=== PATIENT | male | born 1940 | race Caucasian/White ===

== ENCOUNTER 2017-10-21 08:30 | Day surgery (SDC) | payer MEDICARE, BC ==
[~2017-10-21] VITALS: Ht 172.7 cm; Wt 79.4 kg
--- NOTE | ~2017-10-21 | OP ---
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 PROCEDURE: Lumbar laminectomy, medial facetectomy and foraminotomy with microscopic dissection of synovial cyst, L4-L5 right and epidural mass, L4-L5, right. SURGEON: Palmer Murphy MD DESCRIPTION OF TECHNIQUE: After induction of general endotracheal anesthesia, the patient was rolled prone on a Morteza frame. Lumbar spine was prepped and draped in usual sterile fashion. Fluoroscopic x-ray and spinal needle localized with L4-L5 interspace on the right side. A stab incision was created with a #11 blade and series of dilators were used to advance a METRx retractor at the L4-L5 interspace on the right side. Lab was confirmed with fluoroscopic x-ray. A microscope and Midas Angel drill were used to perform a laminectomy, medial facetectomy and foraminotomy L4-L5 on the right. Hypertrophied ligamentum flavum was removed with Cloward rongeurs. In the process of removing this, there was obvious synovial cyst adherent to the dura. This was dissected with Rhoton microdissectors under microscopic illumination. Following this, the synovial cyst was completely resected and the L5 nerve was decompressed. Meticulous hemostasis was maintained throughout the wound. Wounds were irrigated with copious amounts of Ancef irrigant solution. The retractor was removed and the fascia was closed with 2-0 Vicryl suture, the subdermal layer was closed with 3-0 Vicryl suture. Skin was closed with carisa. A sterile dressing was applied to the wound. The patient was awakened in good condition and taken to recovery. All counts reported as correct. Estimated blood loss was minimal. TRANSINT:[id number] Voice Confirmation ID: [id number] DOCUMENT ID: [id number] PALMER MURPHY MD at 1832 CC: [id number] DICTATION DATE: 11/04/17 1638 CORPORATE DEVELOPMENT ANALYST: 11/04/17 1720 [facility] 10/21/17 [facility] [address] [place] [address]
[~2017-10-21 08:30] MED LIST: ASPIRIN EC325 M1 PO; BETAPACE 80 MG80 MG PO; CINNAMON500 MG PO; COUMADIN5 MG PO; DYAZIDE 37.5/251 CAP PO; FLOMAX0.4 MG PO; GLUCOPHAGE1000 MG PO; LIPITOR80 MG PO
[2017-10-21 09:38] LABS: HEMATOCRIT 35.1 % (42.0-54.0); HEMOGLOBIN 11.3 g/dL (13.5-17.5); MCH 26.8 pg (26.0-34.0); MCHC 32.2 g/dL (31.0-37.0); MCV 83.2 fL (80.0-100.0); MEAN PLATELET VOLUME 9.5 fL (7.4-10.4); RBC 4.22 10x6/uL (4.20-6.10); RDW 15.2 % (11.5-14.5); WBC 8.2 10x3/uL (4.8-10.8)
[2017-10-21 09:46] LABS: CALC OSMOLALITY 279 mosm/kg (275-300); CALCIUM 9.8 mg/dL (8.5-10.1); CARBON DIOXIDE 27.7 mmol/L (21.0-32.0); CHLORIDE - SERUM 102 mmol/L (98-107); GLUCOSE 126 mg/dL (74-106); POTASSIUM - SERUM 3.6 mmol/L (3.5-5.1); SODIUM 138 mmol/L (136-145); UREA NITROGEN 17 mg/dL (7-18); eGFR NON AFRICAN AMERICAN 77 mL/min (90-120)
[2017-10-21 09:56] LABS: APTT 30.4 SECONDS (22.8-39.4); INR 1.28 (0.85-1.17); PROTIME 15.5 SECONDS (11.6-15.0)
[2017-10-21 10:05] VITALS: BP 126/75; Ht 172.7 cm; Wt 79.4 kg
== END 2017-10-21 16:30 | disposition home or self-care (01) ==
LOC: D.OPS 08:30 → D.PAN 10:15 → D.OPS 11:00
PROVIDERS: Anesthesiology
DX: M54.16 Radiculopathy, lumbar region (principal); M71.38 Other bursal cyst, other site; I48.91 Unspecified atrial fibrillation; E11.9 Type 2 diabetes mellitus without complications; Z01.812 Encounter for preprocedural laboratory examination

== ENCOUNTER → 2019-05-20 19:26 | Outpatient (CLI) | payer MEDICARE, BC ==
[2017-10-21 10:05] VITALS: BMI 26.6
== END | disposition home or self-care (01) ==
LOC: D.LABREF 19:26
PROVIDERS: ATTEND Orthopaedic Surgery
DX: M16.11 Unilateral primary osteoarthritis, right hip (principal)

== ENCOUNTER 2019-05-21 12:52 | Inpatient (IN) | payer MEDICARE, BC ==
[~2019-05-21] VITALS: Ht 172.7 cm; Wt 73.9 kg
[2019-06-02 13:32] LABS: APPEARANCE CLEAR (CLEAR); BILIRUBIN NEGATIVE (NEGATIVE); COLOR STRAW (YELLOW); GLUCOSE NEGATIVE (NEGATIVE); KETONE NEGATIVE (NEGATIVE); NITRITE NEGATIVE (NEGATIVE); PROTEIN NEGATIVE (NEGATIVE); SPECIFIC GRAVITY 1.005 (1.005-1.020); UROBILINOGEN NORMAL (NORMAL)
[2019-06-11] VITALS (7 sets, daily range): BP systolic 98–135; BP diastolic 56–80; BMI 24.8
[2019-06-11] MEDS ORDERED: LOVENOX40 MG/0.4 SC (11:28)
[2019-06-11 11:29] LABS: BASOPHILS 0.3 % (0-2); EOSINOPHILS 3.1 % (0-7); HEMATOCRIT 32.3 % (42.0-54.0); HEMOGLOBIN 10.3 g/dL (13.5-17.5); IMMATURE GRANULOCYTES 0.1 % (0-5); LYMPHOCYTES 17.6 % (15-50); MCH 26.2 pg (26.0-34.0); MCHC 31.9 g/dL (31.0-37.0); MCV 82.2 fL (80.0-100.0); MONOCYTES 15.2 % (2-11); NEUTROPHILS 63.7 % (40-80); PLATELET COUNT 309 10x3/uL (130-400); RBC 3.93 10x6/uL (4.20-6.10); WBC 7.3 10x3/uL (4.8-10.8)
[2019-06-11 11:38] LABS: CALC OSMOLALITY 275 mosm/kg (275-300); CALCIUM 9.9 mg/dL (8.5-10.1); CARBON DIOXIDE 27.9 mmol/L (21.0-32.0); CHLORIDE - SERUM 100 mmol/L (98-107); CREATININE - SERUM 0.8 mg/dL (0.6-1.3); GLUCOSE 127 mg/dL (74-106); POTASSIUM - SERUM 3.9 mmol/L (3.5-5.1); SODIUM 136 mmol/L (136-145); UREA NITROGEN 18 mg/dL (7-18); eGFR NON AFRICAN AMERICAN > 90 mL/min (90-120)
[2019-06-11 11:42] LABS: INR 1.07 (0.85-1.17); PROTIME 13.4 SECONDS (11.6-15.0)
[2019-06-11 11:43] LABS: APTT 33.5 SECONDS (22.8-39.4)
--- NOTE | 2019-06-11 18:45 | NUR ---
PATIENT IN BED WITH IV INTACT. NO COMPLAINTS OR SIGNS OF DISTRESS. ELIAN BUCK ON. DRESSING CDI. FAMILY AT BEDSIDE. CALL LIGHT WITHIN REACH.
--- NOTE | 2019-06-11 22:00 | NUR ---
A&O X 4, AT BEDSIDE. PERIPHERAL PULSES PALPABLE. BLOOD PRESSURE HAS BEEN RUNNING LOW. DR. AGUILERA NOTIFIED. MONITORING CLOSELY. CONTINUE PLAN OF CARE.
[2019-06-12] VITALS: BP 104/54
--- NOTE | 2019-06-12 01:59 | NUR ---
I have reviewed this patient and I concur with the Shift Assessment completed by the Licensed Practical Nurse today this shift.
[2019-06-12 04:00] VITALS: BP 96/42
[2019-06-12 06:34] LABS: MCH 26.6 pg (26.0-34.0); MCHC 31.9 g/dL (31.0-37.0); MCV 83.3 fL (80.0-100.0); MEAN PLATELET VOLUME 10.1 fL (7.4-10.4); RDW 16.3 % (11.5-14.5)
[2019-06-12 06:48] LABS: WBC 12.1 10x3/uL (4.8-10.8)
[2019-06-12 06:49] LABS: RBC 2.82 10x6/uL (4.20-6.10)
[2019-06-12 06:50] LABS: HEMATOCRIT 23.5 % (42.0-54.0); HEMOGLOBIN 7.5 g/dL (13.5-17.5)
--- NOTE | 2019-06-12 06:50 | NUR ---
PT RESTING IN BED WITH EYES CLOSED, AT THE BEDSIDE, NO S/S OF DISTRESS NOTED AT THIS TIME. BREATHING EVEN AND NONLABORED. DENIES NEEDS, WILL CONT TO MONITOR.
--- NOTE | 2019-06-12 07:15 | NUR ---
PT RESTING IN BED WITH EYES OPEN. NG TUBE LOCATED TO RIGHT NOSTRIL. IV LOCATED TO RIGHT WRIST RUNNING D5 1/2 @ 75, PROCAL @ 50, AND DILAUDID WOOD PRESERVING PLANT LABORER PRESENT. DENIES NEEDS AT THIS TIME, WILL CONT TO MONITOR.
--- NOTE | 2019-06-12 08:50 | OP ---
PATIENT NAME: PENG STOVALL MEDICAL RECORD: [id number] :40 LOCATION:[id number] ADMISSION DATE:06/11/19 SURGEON: MICH AGUILERA DO DATE OF OPERATION: 06/11/2019 PROCEDURE PERFORMED: Right total hip arthroplasty. PREOPERATIVE DIAGNOSIS: Severe right hip osteoarthritis with leg length discrepancy. POSTOPERATIVE DIAGNOSIS: Severe right hip osteoarthritis with leg length discrepancy. INDICATION: Mr. Stovall is a 78-year-old male who presented to my office after attempting all manner of nonoperative treatment for his hip. He was tired of dealing with the pain and a leg length discrepancy and wanted something done. I informed him of the risks of infection, bleeding, blood clots, damage to nerves and vessels, continued pain, failure of implants, fracture, leg length discrepancies, blood clots, and even . He signed the consent. SURGEON: Mich Aguilera DO DESCRIPTION OF PROCEDURE: The patient was taken to the operative suite, laid in supine position, given a general anesthetic and intubated. He was given a gram of Ancef, 80 mg of gentamicin and a gram of TXA. He was then moved over to the Crocker table and positioned. The right hip was prepped and draped in a sterile fashion, reprepped with a prep stick after the initial prep. Then, the Ioban shower curtain was placed over it. I then marked out the incision. Timeout was performed. Everyone was in agreeance with the correct side, site, and patient, and procedure. Incision then began over the tensor fascia ale muscle. Careful dissection was made down to the muscle and the fascia. The fascia was incised and taken anteriorly and muscle belly posteriorly. The interval between the rectus then opened up and rectus taken medially and the tensor fascia ale laterally. The ascending branch of the lateral femoral circumflex was then encountered, exposed, and tied off and coagulated with Aquamantys. The neck of the femur was then exposed and with Homans' on either side of it and the capsule was opened. There were large osteophytes, bones floating around in the joint. Most of them were removed that were reachable. Once the neck was exposed, the capsule was tagged and Hohmanns were placed around the neck inside the capsule. The neck cut was then made. The head was removed and more loose bodies were removed out of the joint. The labrum was then removed and then reaming began up to a 58. 58 cup was then impacted and fit very well. The shell was put in under fluoroscopy. The femur was then exposed. Broaching began with first of the canal finder and then the cookie cutter and then from a 4-9. It was only a little bit of varus, so we broached up to an 11 lateralizing as we went. The 11 fit well and we sized with a standard first to -3, then a standard decided to go with a +3 neck due to the leg length discrepancy. We knew that it would lengthen him some, but it may not make him equal, but it would make him closer. On the x-ray, it was a good match with his other lesser trochanter. The trial was then removed and the actual implant was put in after irrigation was done and a reduction was made and this was confirmed on x-ray. X-rays were done of the hip and the AP pelvis lengths were good and no fracture is seen in the femur. The wound was then irrigated and then the 10% Providine iodine solution was placed in the wound and irrigated out. I left for 3 minutes and then irrigated out with over a liter of normal saline. The [place] and vancomycin and OPERATIVE REPORT [id number] PENG STOVALL tobramycin powder placed in the wound then and the tensor fascia ale fascia was closed with #1 Vicryl, first in a [id number] and then running locking stitch. The skin was then closed by Houston Alcazar, who was my pathology assistant with 2-0 Vicryl in interrupted fashion, 4-0 Monocryl right on the skin and then Prineo glue placed on the skin. He was then dressed with Telfa and Tegaderm. He was awakened and taken to recovery in stable condition. Blood loss was approximately 200 mL. COMPLICATIONS: None. TRANSINT:[id number] Voice Confirmation ID: [id number] DOCUMENT ID: [id number] MICH AGUILERA DO at 0850 CC: [id number] DICTATION DATE: 06/11/19 1619 PERLITE GRINDER: 06/12/19 0410 [facility] [id number] [place] [address]
[2019-06-12 09:01] VITALS: BP 113/52
--- NOTE | 2019-06-12 09:59 | NUR ---
DISCUSSEDS PTS BLOOD COUNT WITH . APPLIED ICE TO HIP PER DR. PATTERSON.
[2019-06-12 10:11] LABS: INR 1.09 (0.85-1.17); PROTIME 13.6 SECONDS (11.6-15.0)
[2019-06-12 10:23] LABS: ALBUMIN 2.5 g/dL (3.4-5.0); ALKALINE PHOSPHATASE 42 U/L (46-116); ALT (SGPT) 21 U/L (10-68); BILIRUBIN - TOTAL 0.77 mg/dL (0.2-1.3); CALC OSMOLALITY 272 mosm/kg (275-300); CALCIUM 8.2 mg/dL (8.5-10.1); CARBON DIOXIDE 21.1 mmol/L (21.0-32.0); CHLORIDE - SERUM 101 mmol/L (98-107); GLUCOSE 127 mg/dL (74-106); PROTEIN - SERUM 5.5 g/dL (6.4-8.2); SODIUM 134 mmol/L (136-145); UREA NITROGEN 20 mg/dL (7-18); eGFR NON AFRICAN AMERICAN 77 mL/min (90-120)
[2019-06-12 10:24] LABS: POTASSIUM - SERUM 4.5 mmol/L (3.5-5.1)
[2019-06-12 13:02] VITALS: BP 109/64
--- NOTE | 2019-06-12 16:15 | NUR ---
1ST UNIT OF BLOOD STARTED.
[2019-06-12 16:49] VITALS: BP 100/56
--- NOTE | 2019-06-12 19:21 | NUR ---
PATIENT RESTING IN BED WITH NO S/S OF DISTRESS AND GUEST AT BEDSIDE. DRESSING C/D/I. PATIENT DENIES NEEDS AT THIS TIME. BED IN LOWEST POSITION AND CALL LIGHT WITHIN REACH. ENCOURAGED THE PATIENT TO CALL IF HE HAS NEEDS. WILL CONTINUE TO MONITOR.
[2019-06-12 20:00] VITALS: BP 123/58
[2019-06-13] VITALS: BP 106/65
[2019-06-13 04:00] VITALS: BP 108/70
[2019-06-13 06:50] LABS: BASOPHILS 0.1 % (0-2); EOSINOPHILS 0.1 % (0-7); HEMATOCRIT 27.8 % (42.0-54.0); HEMOGLOBIN 9.2 g/dL (13.5-17.5); IMMATURE GRANULOCYTES 0.3 % (0-5); LYMPHOCYTES 8.5 % (15-50); MCH 27.1 pg (26.0-34.0); MCHC 33.1 g/dL (31.0-37.0); MCV 81.8 fL (80.0-100.0); MEAN PLATELET VOLUME 9.4 fL (7.4-10.4); MONOCYTES 23.3 % (2-11); NEUTROPHILS 67.7 % (40-80); PLATELET COUNT 257 10x3/uL (130-400); RDW 15.4 % (11.5-14.5); WBC 15.1 10x3/uL (4.8-10.8)
[2019-06-13 07:15] LABS: ALBUMIN 2.6 g/dL (3.4-5.0); ANION GAP 13.2 mmol/L (8-16); BILIRUBIN - TOTAL 1.1 mg/dL (0.2-1.3); CALCIUM 8.7 mg/dL (8.5-10.1); CREATININE - SERUM 1.1 mg/dL (0.6-1.3); POTASSIUM - SERUM 4.2 mmol/L (3.5-5.1); PROTEIN - SERUM 6.1 g/dL (6.4-8.2)
--- NOTE | 2019-06-13 07:16 | NUR ---
ASSISSTED PATIENT TO THE BEDSIDE COMMODE. AT BEDSIDE. PATIENT IS ALERT AND ORIENTED. IV TO THE LEFT FOREARM WITH 1/2 NS RUNNING AT 50. PT WITH NO COMPAINTS OF PAIN AT THIS TIME. BED IS IN LOW POSITION AND CALL LIGHT IS IN REACH. PT WITH NO ADDITIONAL NEEDS AT THIS TIME
[2019-06-13 07:19] LABS: INR 1.14 (0.85-1.17); PROTIME 14.1 SECONDS (11.6-15.0)
[2019-06-13 08:42] VITALS: BP 105/49
[2019-06-13 10:31] LABS: APPEARANCE CLEAR (CLEAR); BILIRUBIN NEGATIVE (NEGATIVE); COLOR YELLOW (YELLOW); GLUCOSE 50 mg/dL (NEGATIVE); KETONE NEGATIVE (NEGATIVE); NITRITE NEGATIVE (NEGATIVE); PROTEIN TRACE mg/dL (NEGATIVE); UROBILINOGEN NORMAL (NORMAL)
[2019-06-13 10:33] LABS: BACTERIA FEW /hpf (NEGATIVE); EPITHELIAL CELLS 0-5 /hpf (0-5); MUCUS <1+ /lpf (NONE SEEN); RED CELLS - URINE NONE SEEN /hpf (0-5); WHITE CELLS - URINE 0-5 /hpf (NEGATIVE)
[2019-06-13 10:34] LABS: GRANULAR CAST 0-5 /lpf (NONE SEEN); HYALINE CAST 0-5 /lpf (NONE SEEN)
[2019-06-13 13:44] VITALS: BP 132/75
--- NOTE | 2019-06-13 17:37 | NUR ---
ASSISSTED PATIENT TO BATHROOM. LARGE BM NOTED. PATIENT STATES RELIEF IN ABD PAIN
[2019-06-13 17:48] VITALS: BP 115/64
[2019-06-13 19:30] VITALS: BP 127/58
--- NOTE | 2019-06-13 19:40 | NUR ---
LYING IN BED. ALERT AND ORIENTED, CONFUSED AT TIMES. AT BEDSIDE. RESP EVEN AND NONLABORED. DRSG NOTED TO RT HIP IS C/D/I. ELIAN HOSE IN USE BILAT. 1/2 NS @ 30 MLHR INFUSING IN LT FOREARM. RATES PAIN IN HIP 2. DENIES NEED FOR PAIN MED. SR ELEVATED X2. CL IN REACH.
--- NOTE | 2019-06-14 01:31 | NUR ---
LYING IN BED WITH EYES CLOSED. RESP EVEN AND NONLABORED. AT BEDSIDE. NO DISTRESS. SR ELEVATED X2. CL IN REACH.
[2019-06-14 05:01] VITALS: BP 123/60
[2019-06-14 05:30] LABS: BASOPHILS 0 % (0-2); EOSINOPHILS 0.1 % (0-7); HEMATOCRIT 25.4 % (42.0-54.0); HEMOGLOBIN 8.2 g/dL (13.5-17.5); IMMATURE GRANULOCYTES 0.4 % (0-5); LYMPHOCYTES 9.2 % (15-50); MCH 26.5 pg (26.0-34.0); MCHC 32.3 g/dL (31.0-37.0); MCV 81.9 fL (80.0-100.0); MEAN PLATELET VOLUME 9.8 fL (7.4-10.4); MONOCYTES 19.6 % (2-11); NEUTROPHILS 70.7 % (40-80); PLATELET COUNT 292 10x3/uL (130-400); RDW 15.8 % (11.5-14.5); WBC 13.6 10x3/uL (4.8-10.8)
[2019-06-14 06:21] LABS: INR 1.12 (0.85-1.17); PROTIME 13.9 SECONDS (11.6-15.0)
[2019-06-14 06:28] LABS: ALBUMIN 2.2 g/dL (3.4-5.0); ALKALINE PHOSPHATASE 44 U/L (46-116); ALT (SGPT) 17 U/L (10-68); BILIRUBIN - TOTAL 0.77 mg/dL (0.2-1.3); CALC OSMOLALITY 261 mosm/kg (275-300); CALCIUM 8.6 mg/dL (8.5-10.1); CARBON DIOXIDE 22.9 mmol/L (21.0-32.0); CHLORIDE - SERUM 94 mmol/L (98-107); CREATININE - SERUM 0.9 mg/dL (0.6-1.3); GLUCOSE 121 mg/dL (74-106); POTASSIUM - SERUM 3.1 mmol/L (3.5-5.1); PROTEIN - SERUM 5.8 g/dL (6.4-8.2); SODIUM 129 mmol/L (136-145); UREA NITROGEN 17 mg/dL (7-18); eGFR NON AFRICAN AMERICAN 87 mL/min (90-120)
--- NOTE | 2019-06-14 08:02 | NUR ---
PT RESTING IN BED. RESP EVEN AND UNLABORED. PT REPORTS PAIN 2/10 AT THIS TIME. IV TO LEFT FOREARM WITH 1/2 NS @ KVO, INFUSING VIA PUMP. SITE WITHOUT REDNESS OR EDEMA. DRESSING TO RIGHT HIP C/D/I. SPOUSE AT BEDSIDE. PT DENIES FURTHER NEEDS AT THIS TIME. CL WITHIN REACH. ENCOURAGED TO CALL WITH NEEDS. CONTINUE POC
[2019-06-14 08:05] VITALS: BP 110/64
[2019-06-14 12:45] VITALS: BP 104/61
[2019-06-14 13:05] VITALS: Ht 172.7 cm; Wt 73.9 kg
--- NOTE | 2019-06-14 13:25 | MORECARE ---
CASE MANAGEMENT DISCHARGE SUMMARY PATIENT: PENG HYATT N UNIT: [id number] ADM DATE: 06/11/19 AGE: 78 : 40 SEX: M ROOM/BED: D.2210 AUTHOR: MINE SAUER PHYSICIAN: REFERRING PHYSICIAN: PRISCILLA AGUILERA DO DATE OF SERVICE: 06/14/19 Discharge Plan Patient Name: PENG HYATT Facility: [facility]:[place] : 1940 Planned Disposition: Inpatient Rehab Anticipated Discharge Date: Discharge Date: Expected LOS: Initial Reviewer: [email or web address] Initial Review Date: 06/11/2019 Generated: 06/14/19 2:24 pm DCPIA - Discharge Planning Initial Assessment Updated by [email or web address]: Lay Esposito on 06/14/19 1:23 pm * Is the patient Alert and Oriented? Yes * How many steps to enter\exit or inside your home? * PCP VALDEZ * Pharmacy [facility] * Preadmission Environment Home with Family * ADLs Independent * Equipment Bedside Commode Cane Walker * List name and contact numbers for known caregivers / representatives who currently or will assist patient after discharge: KHANH () [phone] * Verbal permission to speak to the caregivers and representatives has been obtained from the patient. N/A * Community resources currently utilized None * Additional services required to return to the preadmission environment? Yes * Can the patient safely return to the preadmission environment? No * Has this patient been hospitalized within the prior 30 days at any hospital? No Coverage Notice Reviewer: [id number] Malina Esposito Notice Issued Date-Time: 06/14/2019 13:00 Notice Type: IM Discharge Notice Notice Delivered To: Patient Relationship to Patient: Consulting Project Director Name: Delivery Method: HAND - Hand Delivered Lindsey Days: Prior Verbal Notification: Recipient Understood Notice: Yes Recipient Signature: Yes Med Rec Note Co-signed by Attending: Coverage Notice Comment: Reviewer: [id number] Malina Esposito Notice Issued Date-Time: 06/14/2019 13:00 Notice Type: Patient Choice Letter Notice Delivered To: Patient Relationship to Patient: Consulting Project Director Name: Delivery Method: HAND - Hand Delivered Lindsey Days: Prior Verbal Notification: Recipient Understood Notice: Yes Recipient Signature: Yes Med Rec Note Co-signed by Attending: Coverage Notice Comment: [facility] Patient Name: PENG HYATT Page [phone] at 1325 All edits/amendments must be made on the electronic document DICTATION DATE: 06/14/19 132 HEEL FINISHER: DYLAN 06/14/19 1324 RPT#: [id number] DC DATE: STATUS: ADM IN [facility] [address] [place] [address] END OF REPORT
--- NOTE | 2019-06-14 13:35 | MORECARE ---
CASE MANAGEMENT DISCHARGE SUMMARY PATIENT: PENG HYATT UNIT: [id number] ADM DATE: 06/11/19 AGE: 78 : 40 SEX: M ROOM/BED: D.2210 AUTHOR: MINE SAUER PHYSICIAN: REFERRING PHYSICIAN: PRISCILLA AGUILERA DO DATE OF SERVICE: 06/14/19 Discharge Plan Patient Name: PENG HYATT Facility: [facility]:[place] : 1940 Planned Disposition: Inpatient Rehab Anticipated Discharge Date: Discharge Date: Expected LOS: Initial Reviewer: [email or web address] Initial Review Date: 06/11/2019 Generated: 06/14/19 2:35 pm Comments DCP- Discharge Planning Updated by [id number]: Lay Esposito on 06/14/19 12:[address] Patient Name: PENG HYATT Admission Status: Elective Accout number: [id number] Admission Date: 06-11-2019 : 1940 Admission Diagnosis: Attending: PRISCILLA AGUILERA Current LOS: 3 Anticipated DC Date: Planned Disposition: Inpatient Rehab Primary Insurance: MEDICARE A & B Discharge Planning Comments: CM met with patient to complete initial dc planning assessment. CM educated patient on the CM role and verbal consent given by patient to complete assessment. Patient lives at home with his spouse where he was independent with his care. At discharge patient would like to go to [facility] and feels this is a safe discharge. I will send the referral to them. CM discussed availability of home health, rehab services, and medical equipment. He has a walker, cane, bsc at home. [facility] served and explained. LORI also signed. Patient denied known discharge needs at this time. CM will continue to follow and will assist as needed with dc plans/needs. Balloon Dipper: Lay Esposito DCPIA - Discharge Planning Initial Assessment Updated by [email or web address]: Lay Esposito on 06/14/19 1:23 pm * Is the patient Alert and Oriented? Yes * How many steps to enter\exit or inside your home? * PCP VALDEZ * Pharm[facility] * Preadmission Environment Home with Family * ADLs Independent * Equipment Bedside Commode Cane Walker * List name and contact numbers for known caregivers / representatives who currently or will assist patient after discharge: KHANH () [phone] * Verbal permission to speak to the caregivers and representatives has been obtained from the patient. N/A * Community resources currently utilized None * Additional services required to return to the preadmission environment? Yes * Can the patient safely return to the preadmission environment? No * Has this patient been hospitalized within the prior 30 days at any hospital? No Coverage Notice Reviewer: [id number] Esposito Notice Issued Date-Time: 06/14/2019 13:00 Notice Type: IM Discharge Notice Notice Delivered To: Patient Relationship to Patient: Order Management Specialist Name: Delivery Method: HAND - Hand Delivered Lindsey Days: Prior Verbal Notification: Recipient Understood Notice: Yes Recipient Signature: Yes Med Rec Note Co-signed by Attending: Coverage Notice Comment: Reviewer: CONNOR Esposito Notice Issued Date-Time: 06/14/2019 13:00 Notice Type: Patient Choice Letter Notice Delivered To: Patient Relationship to Patient: Order Management Specialist Name: Delivery Method: HAND - Hand Delivered Lindsey Days: Prior Verbal Notification: Recipient Understood Notice: Yes Recipient Signature: Yes Med Rec Note Co-signed by Attending: Coverage Notice Comment: [facility] Last DP export: 06/14/19 12:25 Patient Name: PENG HYATT Page [phone] at 1335 All edits/amendments must be made on the electronic document DICTATION DATE: 06/14/19 1335 CERTIFED REFRIGERATION OPERATOR: DYLAN 06/14/19 1335 RPT#: [id number] DC DATE: STATUS: ADM IN [facility] [address] [place] [address] END OF REPORT
--- NOTE | 2019-06-14 13:45 | MORECARE ---
CASE MANAGEMENT DISCHARGE SUMMARY PATIENT: PENG HYATT UNIT: [id number] ADM DATE: 06/11/19 AGE: 78 : 40 SEX: M ROOM/BED: D.2210 AUTHOR: MINE SAUER PHYSICIAN: REFERRING PHYSICIAN: PRISCILLA AGUILERA DO DATE OF SERVICE: 06/14/19 Discharge Plan Patient Name: PENG HYATT Facility: [facility]:[place] : 1940 Planned Disposition: Inpatient Rehab Anticipated Discharge Date: Discharge Date: Expected LOS: Initial Reviewer: [email or web address] Initial Review Date: 06/11/2019 Generated: 06/14/19 2:44 pm Comments DCP- Discharge Planning Updated by [id number]: Lay Esposito on 06/14/19 12:[address] Patient Name: PENG HYATT Admission Status: Elective Accout number: [id number] Admission Date: 06-11-2019 : 1940 Admission Diagnosis: Attending: PRISCILLA AGUILERA Current LOS: 3 Anticipated DC Date: Planned Disposition: Inpatient Rehab Primary Insurance: MEDICARE A & B Discharge Planning Comments: CM met with patient to complete initial dc planning assessment. CM educated patient on the CM role and verbal consent given by patient to complete assessment. Patient lives at home with his spouse where he was independent with his care. At discharge patient would like to go to [facility] and feels this is a safe discharge. I will send the referral to them. CM discussed availability of home health, rehab services, and medical equipment. He has a walker, cane, bsc at home. [facility] served and explained. LORI also signed. Patient denied known discharge needs at this time. CM will continue to follow and will assist as needed with dc plans/needs. Stevedoring Supervisor: Lay Esposito DCPIA - Discharge Planning Initial Assessment Updated by [email or web address]: Lay Esposito on 06/14/19 1:23 pm * Is the patient Alert and Oriented? Yes * How many steps to enter\exit or inside your home? * PCP VALDEZ * Pharm[facility] * Preadmission Environment Home with Family * ADLs Independent * Equipment Bedside Commode Cane Walker * List name and contact numbers for known caregivers / representatives who currently or will assist patient after discharge: KHANH () [phone] * Verbal permission to speak to the caregivers and representatives has been obtained from the patient. N/A * Community resources currently utilized None * Additional services required to return to the preadmission environment? Yes * Can the patient safely return to the preadmission environment? No * Has this patient been hospitalized within the prior 30 days at any hospital? No External Providers External Provider: OTHER-OTHER Next Contact Date: Service Request Date: Service Type: Resolution: Reviewer: Comments: Coverage Notice Reviewer: [id number] Malina Esposito Notice Issued Date-Time: 06/14/2019 13:00 Notice Type: IM Discharge Notice Notice Delivered To: Patient Relationship to Patient: Server Assistant Name: Delivery Method: HAND - Hand Delivered Lindsey Days: Prior Verbal Notification: Recipient Understood Notice: Yes Recipient Signature: Yes Med Rec Note Co-signed by Attending: Coverage Notice Comment: Reviewer: [email or web address] Malina Esposito Notice Issued Date-Time: 06/14/2019 13:00 Notice Type: Patient Choice Letter Notice Delivered To: Patient Relationship to Patient: Server Assistant Name: Delivery Method: HAND - Hand Delivered Lindsey Days: Prior Verbal Notification: Recipient Understood Notice: Yes Recipient Signature: Yes Med Rec Note Co-signed by Attending: Coverage Notice Comment: [facility] Last DP export: 06/14/19 12:35 Patient Name: PENG HYATT Page [phone] at 1345 All edits/amendments must be made on the electronic document DICTATION DATE: 06/14/19 1344 MOTORCYCLE ASSEMBLER: DYLAN 06/14/19 1344 RPT#: [id number] DC DATE: STATUS: ADM IN [facility] [address] [place] [address] END OF REPORT
[2019-06-14 16:17] VITALS: BP 111/53
--- NOTE | 2019-06-14 16:47 | MORECARE ---
CASE MANAGEMENT DISCHARGE SUMMARY PATIENT: PENG HYATT UNIT: [id number] ADM DATE: 06/11/19 AGE: 78 : 40 SEX: M ROOM/BED: D.2210 AUTHOR: MINE SAUER PHYSICIAN: REFERRING PHYSICIAN: PRISCILLA AGUILERA DO DATE OF SERVICE: 06/14/19 Discharge Plan Patient Name: PENG HYATT Facility: [facility]:[place] : 1940 Planned Disposition: Inpatient Rehab Anticipated Discharge Date: Discharge Date: Expected LOS: Initial Reviewer: [email or web address] Initial Review Date: 06/11/2019 Generated: 06/14/19 5:47 pm Comments DCP- Discharge Planning Updated by [id number]: Lay Esposito on 06/14/19 3:[address] [facility]EPT[facility] THE PATIENT AND HIS WILL BE THE ONE TO TRANSPORT THE PATIENT TOMORROW AM. DCP- Discharge Planning Updated by [id number]: Lay Esposito on 06/14/19 12:[address] Patient Name: PENG HYATT Admission Status: Elective Accout number: [id number] Admission Date: 06-11-2019 : 1940 Admission Diagnosis: Attending: PRISCILLA AGUILERA Current LOS: 3 Anticipated DC Date: Planned Disposition: Inpatient Rehab Primary Insurance: MEDICARE A & B Discharge Planning Comments: CM met with patient to complete initial dc planning assessment. CM educated patient on the CM role and verbal consent given by patient to complete assessment. Patient lives at home with his spouse where he was independent with his care. At discharge patient would like to go to [facility] and feels this is a safe discharge. I will send the referral to them. CM discussed availability of home health, rehab services, and medical equipment. He has a walker, cane, bsc at home. [facility] served and explained. LORI also signed. Patient denied known discharge needs at this time. CM will continue to follow and will assist as needed with dc plans/needs. Area Supervisor: Lay Esposito DCPIA - Discharge Planning Initial Assessment Updated by [email or web address]: Lay Esposito on 06/14/19 1:23 pm * Is the patient Alert and Oriented? Yes * How many steps to enter\exit or inside your home? * PCP [facility]DEZ * Pharmacy [facility] * Preadmission Environment Home with Family * ADLs Independent * Equipment Bedside Commode Cane Walker * List name and contact numbers for known caregivers / representatives who currently or will assist patient after discharge: KHANH () [phone] * Verbal permission to speak to the caregivers and representatives has been obtained from the patient. N/A * Community resources currently utilized None * Additional services required to return to the preadmission environment? Yes * Can the patient safely return to the preadmission environment? No * Has this patient been hospitalized within the prior 30 days at any hospital? No Coverage Notice Reviewer: [email or web address] Malina Esposito Notice Issued Date-Time: 06/14/2019 13:00 Notice Type: IM Discharge Notice Notice Delivered To: Patient Relationship to Patient: Smocking Machine Operator Name: Delivery Method: HAND - Hand Delivered Lindsey Days: Prior Verbal Notification: Recipient Understood Notice: Yes Recipient Signature: Yes Med Rec Note Co-signed by Attending: Coverage Notice Comment: Reviewer: [id number] Esposito Notice Issued Date-Time: 06/14/2019 13:00 Notice Type: Patient Choice Letter Notice Delivered To: Patient Relationship to Patient: Smocking Machine Operator Name: Delivery Method: HAND - Hand Delivered Lindsey Days: Prior Verbal Notification: Recipient Understood Notice: Yes Recipient Signature: Yes Med Rec Note Co-signed by Attending: Coverage Notice Comment: [facility] for [facility] Last DP export: 06/14/19 12:45 Patient Name: PENG HYATT Page [id number] at 1647 All edits/amendments must be made on the electronic document DICTATION DATE: 06/14/191646 CATERING ADMINISTRATIVE ASSISTANT: DYLAN 06/14/191646 RPT#: [id number] DC DATE: STATUS: ADM IN [facility] [address] [place] [address] END OF REPORT
[2019-06-14 19:30] VITALS: BP 121/71
--- NOTE | 2019-06-14 20:00 | NUR ---
A&0 X 4, VS STABLE. AT BEDSIDE. REPORTS PAIN OF 4/10. RIGHT HIP DRESSING C/D/I. DENIES FURTHER NEEDS AT THIS TIME, WILL CONTINUE TO MONITOR.
[2019-06-15 00:30] VITALS: BP 118/68
[2019-06-15 04:50] VITALS: BP 107/53
[2019-06-15 06:59] LABS: INR 1.44 (0.85-1.17)
[2019-06-15 07:07] LABS: ALBUMIN 2.2 g/dL (3.4-5.0); ALKALINE PHOSPHATASE 57 U/L (46-116); ALT (SGPT) 20 U/L (10-68); BILIRUBIN - TOTAL 0.96 mg/dL (0.2-1.3); CALC OSMOLALITY 260 mosm/kg (275-300); CALCIUM 8.4 mg/dL (8.5-10.1); CARBON DIOXIDE 22.8 mmol/L (21.0-32.0); CHLORIDE - SERUM 94 mmol/L (98-107); CREATININE - SERUM 0.9 mg/dL (0.6-1.3); GLUCOSE 110 mg/dL (74-106); POTASSIUM - SERUM 3.3 mmol/L (3.5-5.1); PROTEIN - SERUM 5.2 g/dL (6.4-8.2); SODIUM 128 mmol/L (136-145); UREA NITROGEN 20 mg/dL (7-18); eGFR NON AFRICAN AMERICAN 87 mL/min (90-120)
[2019-06-15 07:42] LABS: BASOPHILS 0 % (0-2); EOSINOPHILS 0.2 % (0-7); HEMATOCRIT 25.4 % (42.0-54.0); HEMOGLOBIN 8.4 g/dL (13.5-17.5); IMMATURE GRANULOCYTES 0.5 % (0-5); LYMPHOCYTES 7.2 % (15-50); MCH 27.2 pg (26.0-34.0); MCHC 33.1 g/dL (31.0-37.0); MCV 82.2 fL (80.0-100.0); MONOCYTES 7.7 % (2-11); NEUTROPHILS 84.4 % (40-80); PLATELET COUNT 313 10x3/uL (130-400); RBC 3.09 10x6/uL (4.20-6.10); RDW 15.8 % (11.5-14.5)
[2019-06-15 07:48] LABS: WBC 6.5 10x3/uL (4.8-10.8)
--- NOTE | 2019-06-15 08:00 | NUR ---
PT RESTING IN BED WITH EYES CLOSED, AT THE BEDSIDE. CURRENTLY RCVING 3L VIA NC. IV LOCATED TO LEFT FA RUNNING 1/2NS @ 30. NO S/S OF DISTRESS AT THIS TIME, DENIES NEEDS, WILL CONT TO MONITOR.
[2019-06-15 09:19] VITALS: BP 104/63
[2019-06-15] MEDS ORDERED: LOVENOX40 MG/0.4 SC (12:04)
[2019-06-15] MEDS ORDERED: KEFLEX500 MG PO (12:05)
[2019-06-15] MEDS ORDERED: HYDROCODON-ACE1 EAC7 PO (12:05)
--- NOTE | 2019-06-15 13:30 | MORECARE ---
CASE MANAGEMENT DISCHARGE SUMMARY PATIENT: PENG HYATT UNIT: [id number] ADM DATE: 06/11/19 AGE: 78 : 40 SEX: M ROOM/BED: D.2210 AUTHOR: MINE SAUER PHYSICIAN: REFERRING PHYSICIAN: PRISCILLA AGUILERA DO DATE OF SERVICE: 06/15/19 Discharge Plan Patient Name: PENG HYATT Facility: [facility]:[place] : 1940 Planned Disposition: Inpatient Rehab Anticipated Discharge Date: Discharge Date: Expected LOS: Initial Reviewer: [id number] Initial Review Date: 06/11/2019 Generated: 06/15/19 2:30 pm Comments DCP- Discharge Planning Updated by [id number]: Lay Esposito on 06/15/19 12:[address] PATIENT WILL BE DISCHARGED TO [facility] TODAY, THE WILL TRANSPORT PATIENT. I SPOKE WITH ANA AT [facility] DCP- Discharge Planning Updated by [email or web address]: Lay Epsosito on 06/14/19 3:[address] [facility] AT [facility] HAS ACCEPTED THE PATIENT AND HIS WILL BE THE ONE TO TRANSPORT THE PATIENT TOMORROW AM. DCP- Discharge Planning Updated by [id number]: Lay Esposito on 06/14/19 12:[address] Patient Name: PENG HYATT Admission Status: Elective Accout number: [id number] Admission Date: 06-11-2019 : 1940 Admission Diagnosis: Attending: PRISCILLA AGUILERA Current LOS: 3 Anticipated DC Date: Planned Disposition: Inpatient Rehab Primary Insurance: MEDICARE A & B Discharge Planning Comments: CM met with patient to complete initial dc planning assessment. CM educated patient on the CM role and verbal consent given by patient to complete assessment. Patient lives at home with his spouse where he was independent with his care. At discharge patient would like to go to [facility] and feels this is a safe discharge. I will send the referral to them. CM discussed availability of home health, rehab services, and medical equipment. He has a walker, cane, bsc at home. IMM served and explained. LORI also signed. Patient denied known discharge needs at this time. CM will continue to follow and will assist as needed with dc plans/needs. Java Technical Architect: Lay Esposito DCPIA - Discharge Planning Initial Assessment Updated by [email or web address]: Lay Esposito on 06/14/19 1:23 pm * Is the patient Alert and Oriented? Yes * How many steps to enter\exit or inside your home? * PCP VALDEZ * Pharmacy [facility] * Preadmission Environment Home with Family * ADLs Independent * Equipment Bedside Commode Cane Walker * List name and contact numbers for known caregivers / representatives who currently or will assist patient after discharge: KHANH () [phone] * Verbal permission to speak to the caregivers and representatives has been obtained from the patient. N/A * Community resources currently utilized None * Additional services required to return to the preadmission environment? Yes * Can the patient safely return to the preadmission environment? No * Has this patient been hospitalized within the prior 30 days at any hospital? No Coverage Notice Reviewer: [id number] Malina Esposito Notice Issued Date-Time: 06/14/2019 13:00 Notice Type: IM Discharge Notice Notice Delivered To: Patient Relationship to Patient: Dust Collector Operator Name: Delivery Method: HAND - Hand Delivered Lindsey Days: Prior Verbal Notification: Recipient Understood Notice: Yes Recipient Signature: Yes Med Rec Note Co-signed by Attending: Coverage Notice Comment: Reviewer: [email or web address] Malina Esposito Notice Issued Date-Time: 06/14/2019 13:00 Notice Type: Patient Choice Letter Notice Delivered To: Patient Relationship to Patient: Dust Collector Operator Name: Delivery Method: HAND - Hand Delivered Lindsey Days: Prior Verbal Notification: Recipient Understood Notice: Yes Recipient Signature: Yes Med Rec Note Co-signed by Attending: Coverage Notice Comment: [facility] Last DP export: 06/14/19 3:47 Patient Name: PENG HYATT Page [id number] at 1330 All edits/amendments must be made on the electronic document DICTATION DATE: 06/15/19 1329 INTERIOR DESIGN PROFESSOR: DYLAN 06/15/19 1329 RPT#: [id number] DC DATE: STATUS: ADM IN [facility] [address] [place] [address] END OF REPORT
[2019-06-15 13:53] VITALS: BP 109/65
--- NOTE | 2019-06-15 14:41 | NUR ---
IV OUT, CATHETER TIP INTACT. DC`D VIA HOSPITAL STAFF, , AND WHEELCHAIR.
--- NOTE | 2019-06-16 13:55 | MORECARE ---
CASE MANAGEMENT DISCHARGE SUMMARY PATIENT: PENG HYATT UNIT: [id number] ADM DATE: 06/11/19 AGE: 78 : 40 SEX: M ROOM/BED: D.2210 AUTHOR: MINE SAURE PHYSICIAN: REFERRING PHYSICIAN: PRISCILLA AGUILERA DO DATE OF SERVICE: 06/16/19 Discharge Plan Patient Name: PENG HYATT Facility: [facility]:[place] : 1940 Planned Disposition: Inpatient Rehab Anticipated Discharge Date: 06/15/19 Discharge Date: 06/15/2019 Expected LOS: 4 Initial Reviewer: [email or web address] Initial Review Date: 06/11/2019 Generated: 06/16/19 2:54 pm Comments DCP- Discharge Planning Updated by [id number]: Leslie Hsieh on 06/16/19 12:[address] CM RECEIVED A TELEPHONE CALL FROM MAG AT [facility]. SHE WAS REQUESTING THE RESULTS OF THE ABDOMINAL XRAY TAKEN 06/15/19 AND ANY OTHER PERTINIENT INFORMATION. TELEPHONE NUMBER [phone] FAX NUMBER [phone]. CM FAXED ABD XRAY, 06/15 MD PROGRESS NOTE, LABS AND VITAL SIGNS. DCP- Discharge Planning Updated by [id number]: Lay Esposito on 06/15/19 12:[address] PATIENT WILL BE DISCHARGED TO [facility] TODAY, THE WILL TRANSPORT PATIENT. I SPOKE WITH ANA AT [facility] DCP- Discharge Planning Updated by [email or web address]: Lay Esposito on 06/14/19 3:[address] [facility] AT [facility] HAS ACCEPTED THE PATIENT AND HIS WILL BE THE ONE TO TRANSPORT THE PATIENT TOMORROW AM. DCP- Discharge Planning Updated by [id number]: Lay Esposito on 06/14/19 12:[address] Patient Name: PENG HYATT Admission Status: Elective Accout number: [id number] Admission Date: 06-11-2019 : 1940 Admission Diagnosis: Attending: PRISCILLA AGUILERA Current LOS: 3 Anticipated DC Date: Planned Disposition: Inpatient Rehab Primary Insurance: MEDICARE A & B Discharge Planning Comments: CM met with patient to complete initial dc planning assessment. CM educated patient on the CM role and verbal consent given by patient to complete assessment. Patient lives at home with his spouse where he was independent with his care. At discharge patient would like to go to [facility] and feels this is a safe discharge. I will send the referral to them. CM discussed availability of home health, rehab services, and medical equipment. He has a walker, cane, bsc at home. IMM served and explained. LORI also signed. Patient denied known discharge needs at this time. CM will continue to follow and will assist as needed with dc plans/needs. Certified Ophthalmic Assistant: Lay Esposito DCPIA - Discharge Planning Initial Assessment Updated by [id number]: Lay Esposito on 06/14/19 1:23 pm * Is the patient Alert and Oriented? Yes * How many steps to enter\exit or inside your home? * PCP VALDEZ * Pharmacy [facility] * Preadmission Environment Home with Family * ADLs Independent * Equipment Bedside Commode Cane Walker * List name and contact numbers for known caregivers / representatives who currently or will assist patient after discharge: KHANH () [phone] * Verbal permission to speak to the caregivers and representatives has been obtained from the patient. N/A * Community resources currently utilized None * Additional services required to return to the preadmission environment? Yes * Can the patient safely return to the preadmission environment? No * Has this patient been hospitalized within the prior 30 days at any hospital? No Coverage Notice Reviewer: [id number] Malina Esposito Notice Issued Date-Time: 06/14/2019 13:00 Notice Type: IM Discharge Notice Notice Delivered To: Patient Relationship to Patient: Oil Field Equipment Mechanic Name: Delivery Method: HAND - Hand Delivered Lindsey Days: Prior Verbal Notification: Recipient Understood Notice: Yes Recipient Signature: Yes Med Rec Note Co-signed by Attending: Coverage Notice Comment: Reviewer: [id number] Malina Esposito Notice Issued Date-Time: 06/14/2019 13:00 Notice Type: Patient Choice Letter Notice Delivered To: Patient Relationship to Patient: Oil Field Equipment Mechanic Name: Delivery Method: HAND - Hand Delivered Lindsey Days: Prior Verbal Notification: Recipient Understood Notice: Yes Recipient Signature: Yes Med Rec Note Co-signed by Attending: Coverage Notice Comment: [facility] Last DP export: 06/15/19 12:30 Patient Name: PENG HYATT Page 85770 at 1355 All edits/amendments must be made on the electronic document DICTATION DATE: 06/16/19 1353 ELL TUTOR: DYLAN 06/16/19 1354 RPT#: [id number] DC DATE:06/15/19 STATUS: DIS IN [facility] [address] [place] [address] END OF REPORT
--- NOTE | 2019-06-19 09:54 | MORECARE ---
CASE MANAGEMENT DISCHARGE SUMMARY PATIENT: TARA HYATT N UNIT: [id number] ADM DATE: 06/11/19 AGE: 78 : 40 SEX: M ROOM/BED: D.2210 AUTHOR: MINE SAUER PHYSICIAN: REFERRING PHYSICIAN: PRISCILLA AGUILERA DO DATE OF SERVICE: 06/19/19 Discharge Plan Patient Name: TARA HYATT Facility: [facility]:[place] : 1940 Planned Disposition: Inpatient Rehab Anticipated Discharge Date: 06/15/19 Discharge Date: 06/15/2019 Expected LOS: 4 Initial Reviewer: [id number] Initial Review Date: 06/11/2019 Generated: 06/19/19 10:54 am Comments DCP- Discharge Planning Updated by [email or web address]: Leslie Hiseh on 06/16/19 12:[address] CM RECEIVED A TELEPHONE CALL FROM MAG AT [facility]. SHE WAS REQUESTING THE RESULTS OF THE ABDOMINAL XRAY TAKEN 06/15/19 AND ANY OTHER PERTINIENT INFORMATION. TELEPHONE NUMBER [phone] FAX NUMBER [phone]. CM FAXED ABD XRAY, 06/15 MD PROGRESS NOTE, LABS AND VITAL SIGNS. DCP- Discharge Planning Updated by [email or web address]: Lay Esposito on 06/15/19 12:[address] PATIENT WILL BE DISCHARGED TO [facility] TODAY, THE WILL TRANSPORT PATIENT. I SPOKE WITH ANA AT [facility] DCP- Discharge Planning Updated by [id number]: Lay Esposito on 06/14/19 3:[address] [facility] AT [facility] HAS ACCEPTED THE PATIENT AND HIS WILL BE THE ONE TO TRANSPORT THE PATIENT TOMORROW AM. DCP- Discharge Planning Updated by [id number]: Lay Esposito on 06/14/19 12:[address] Patient Name: PENG HYATT Admission Status: Elective Accout number: [id number] Admission Date: 06-11-2019 : 1940 Admission Diagnosis: Attending: PRISCILLA AGUILERA Current LOS: 3 Anticipated DC Date: Planned Disposition: Inpatient Rehab Primary Insurance: MEDICARE A & B Discharge Planning Comments: CM met with patient to complete initial dc planning assessment. CM educated patient on the CM role and verbal consent given by patient to complete assessment. Patient lives at home with his spouse where he was independent with his care. At discharge patient would like to go to [facility] and feels this is a safe discharge. I will send the referral to them. CM discussed availability of home health, rehab services, and medical equipment. He has a walker, cane, bsc at home. IMM served and explained. LORI also signed. Patient denied known discharge needs at this time. CM will continue to follow and will assist as needed with dc plans/needs. Concrete Carpenter: Lay Esposito DCPIA - Discharge Planning Initial Assessment Updated by [id number]: Lay Esposito on 06/14/19 1:23 pm * Is the patient Alert and Oriented? Yes * How many steps to enter\exit or inside your home? * PCP VALDEZ * Pharm[facility] * Preadmission Environment Home with Family * ADLs Independent * Equipment Bedside Commode Cane Walker * List name and contact numbers for known caregivers / representatives who currently or will assist patient after discharge: KHANH () [phone] * Verbal permission to speak to the caregivers and representatives has been obtained from the patient. N/A * Community resources currently utilized None * Additional services required to return to the preadmission environment? Yes * Can the patient safely return to the preadmission environment? No * Has this patient been hospitalized within the prior 30 days at any hospital? No Coverage Notice Reviewer: [id number] Malina Esposito Notice Issued Date-Time: 06/14/2019 13:00 Notice Type: IM Discharge Notice Notice Delivered To: Patient Relationship to Patient: Thermit Welding Machine Operator Name: Delivery Method: HAND - Hand Delivered Lindsey Days: Prior Verbal Notification: Recipient Understood Notice: Yes Recipient Signature: Yes Med Rec Note Co-signed by Attending: Coverage Notice Comment: Reviewer: [id number] Malina Esposito Notice Issued Date-Time: 06/14/2019 13:00 Notice Type: Patient Choice Letter Notice Delivered To: Patient Relationship to Patient: Thermit Welding Machine Operator Name: Delivery Method: HAND - Hand Delivered Lindsey Days: Prior Verbal Notification: Recipient Understood Notice: Yes Recipient Signature: Yes Med Rec Note Co-signed by Attending: Coverage Notice Comment: [facility] Last DP export: 06/16/19 12:54 pm Patient Name: TARA HYATT Page [id number] at 0954 All edits/amendments must be made on the electronic document DICTATION DATE: 06/19/19953 LEAD SYSTEMS ENGINEER: DYLAN 06/19/19953 RPT#: [id number] DC DATE:06/15/19 STATUS: DIS IN [facility] [address] [place] [address] END OF REPORT
== END 2019-06-15 14:50 | DRG 470 ==
LOC: D.SDCHOLD 06-11 09:45 → D.MS 06-11 09:45 → D.SDCHOLD 06-11 10:00 → D.MS 06-11 17:06
PROVIDERS: Internal Medicine Nephrology; ADMIT Orthopaedic Surgery; ATTEND Orthopaedic Surgery
PROC: 0SR90J9 Replacement of Right Hip Joint with Synthetic Substitute, Cemented, Open Approach (ICD-10-PCS; principal; 2019-06-11 11:45)
DX: M16.11 Unilateral primary osteoarthritis, right hip (principal); D62 Acute posthemorrhagic anemia; F17.203 Nicotine dependence unspecified, with withdrawal; I48.20 Chronic atrial fibrillation, unspecified; E11.65 Type 2 diabetes mellitus with hyperglycemia; M21.70 Unequal limb length (acquired), unspecified site; I25.10 Atherosclerotic heart disease of native coronary artery without angina pectoris; Z95.0 Presence of cardiac pacemaker; N40.0 Benign prostatic hyperplasia without lower urinary tract symptoms; Z85.828 Personal history of other malignant neoplasm of skin

== ENCOUNTER 2019-07-28 18:50 | Inpatient (IN) | payer MEDICARE, BC ==
[~2019-07-28] VITALS: Ht 172.7 cm; Wt 72.6 kg
[~2019-07-28 18:50] MED LIST changes: +CLEOCIN HCL300 MG PO; +FLORAJEN3 CAPS460 MG PO; +HYDROCODON-ACE1 EAC7 PO; +IPRAT-ALBUT 0.5-3 ML UPD; +KEFLEX500 MG PO; +LOVENOX40 MG/0.4 SC; +MEGACE400 MG/10 PO; +ROBITUSSIN DM 110 ML PO; +Zovirax TOPICAL
--- NOTE | 2019-07-28 20:54 | NUR ---
PT TO ROOM 2229 VIA STRETCHER ACCOMPANIED BY HOSPITAL STAFF AND . PATIENT IS AAOX4, VERY SOFT SPOKEN. NO S/S OF DISTRESS OBSERVED, RR EVEN AND UNLABORED ON ROOM AIR. PATIENT HAS DE LA ROSA HANGING TO LT SIDE OF BED WITH STRAW-COLORED URINE DRAINING BY GRAVITY. PATIENT ON 1ST STEP OVERLAY BED. PATIENT WAS SOMEHOW DC'D FROM THE FLOOR BEFORE HE EVEN CAME TO THE FLOOR. ADMISSIONS WAS NOTIFED TO READMIT PATIENT AND ADMISSION ORDER FAXED TO PHARMACY FOR MEDS. WILL SUBMIT REST OF ORDERS ACCORDINGLING.
--- NOTE | 2019-07-28 21:19 | NUR ---
STEVE GARZA PAGED ABOUT PATIENTS N/V AND NPO STATUS AND MEDS.
--- NOTE | 2019-07-28 21:46 | NUR ---
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
--- NOTE | 2019-07-28 23:11 | NUR ---
NG TUBE PLACED BY RHYS SPACE OPERATIONS OFFICER AND STUDENTS. PATIENT TOLERATED WELL. 500CC BROWN RESIDUAL IMMEDIATEDLY FILLED SUCTION, SUCTION PLACED ON LOW INTERMITTENT. PLACEMENT CHECKED VIA AUSCULTATION. WILL ORDER CHEST XRAY TO CONFIRM PLACEMENT. PATIENT JUST CAME TO NURSES STATION CONCERNED ABOUT SUCTION GOING TO OVERFLOW. UPON ENTERING ROOM CANISTER WAS FULL OF BROWN LIQUID 1100CC. CANISTER REPLACED.
[2019-07-29 04:00] VITALS: BP 108/68
[2019-07-29 04:19] VITALS: BP 135/83; BMI 24.3
--- NOTE | 2019-07-29 04:30 | NUR ---
EMPTIED ANOTHER 1100CC OF BROWN FLUID FROM NG TUBE CANISTER.
[2019-07-29 08:16] LABS: BASOPHILS 0.1 % (0-2); EOSINOPHILS 0 % (0-7); HEMATOCRIT 33.6 % (42.0-54.0); IMMATURE GRANULOCYTES 0.7 % (0-5); LYMPHOCYTES 11.8 % (15-50); MCH 29.1 pg (26.0-34.0); MCHC 32.7 g/dL (31.0-37.0); MCV 88.9 fL (80.0-100.0); MEAN PLATELET VOLUME 9.3 fL (7.4-10.4); MONOCYTES 9.7 % (2-11); NEUTROPHILS 77.7 % (40-80); PLATELET COUNT 413 10x3/uL (130-400); RBC 3.78 10x6/uL (4.20-6.10); RDW 20.8 % (11.5-14.5); WBC 19.9 10x3/uL (4.8-10.8)
[2019-07-29 08:31] LABS: ANION GAP 11.2 mmol/L (8-16); CARBON DIOXIDE 31.2 mmol/L (21.0-32.0); CREATININE - SERUM 1.1 mg/dL (0.6-1.3); MAGNESIUM - SERUM 1.7 mg/dL (1.8-2.4); PHOSPHOROUS 4.5 mg/dL (2.5-4.9)
[2019-07-29 08:32] LABS: POTASSIUM - SERUM 3.4 mmol/L (3.5-5.1)
--- NOTE | 2019-07-29 09:30 | NUR ---
PT RESTING IN BED WITH HOB ELEVATED. NG TUBE TO RIGHT NARE TO LOW INTERMITTENT SUCTIONING. DRAINING LIGHT BROWN DRAINAGE. DENIES PAIN AT THIS TIME. IV TO RIGHT FOREARM SALINE LOC, SITE WITHOUT REDNESS OR EDEMA. WOUND VAC TO MIDLINE ABDOMEN, SCANT DRAINAGE NOTED. DRESSING INTACT. F/C PATENT TO GRAVITY. DENIES FURTHER NEEDS AT THIS TIME. CL WITHIN REACH. ENCOURAGED TO CALL WITH NEEDS. CONTINUE POC
[2019-07-29 09:38] VITALS: BP 127/69
[2019-07-29 11:09] VITALS: Ht 172.7 cm; Wt 72.6 kg
[2019-07-29 13:09] VITALS: BP 132/85
[2019-07-29 15:35] LABS: BILIRUBIN NEGATIVE (NEGATIVE); GLUCOSE NEGATIVE (NEGATIVE); KETONE NEGATIVE (NEGATIVE); NITRITE NEGATIVE (NEGATIVE); UROBILINOGEN NORMAL (NORMAL)
[2019-07-29 15:38] LABS: BACTERIA MANY /hpf (NEGATIVE); RED CELLS - URINE 0-5 /hpf (0-5); WHITE CELLS - URINE 0-5 /hpf (NEGATIVE); YEAST >1+ WITH HYPHAE /hpf (NONE SEEN)
[2019-07-29 16:46] VITALS: BP 127/88
--- NOTE | 2019-07-29 20:00 | NUR ---
PATIENT RESTING IN BED WITH EYES CLOSED AND SPOUS AT BEDSIDE. NO S/S OF ACUTE DISTRESS. NO C/O AT THIS TIME. PATIENT HAS IV IN RIGHT FOREARM NORMAL SALINE @ 100 ML/HR. IV IS PATENT WITHOUT REDNESS, SWELLING, OR TENDERNESS. PATIENT HAS NGT THAT IS SECURE. NGT IS ON LOW-INTERMITTENT SUCTION. PATIENT HAS A ABDOMINAL MIDLNINE INCISION WITH WOUND VAC. PATIENT IS NPO EXCEPT FOR ICE CHIPS. PATIENT HAS A DE LA ROSA THAT WAS PLACED 07/20/19. OLYA HAS ON SCDS. PATIENT ON A FIRST STEP OVERLAY. CALL LIGHT IN PLACE. WILL CONTINUE TO MONITOR.
--- NOTE | 2019-07-30 01:54 | NUR ---
I have reviewed this patient and I concur with the Shift Assessment completed by the Licensed Practical Nurse today this shift.
[2019-07-30 06:07] LABS: BASOPHILS 0.1 % (0-2); EOSINOPHILS 0 % (0-7); HEMATOCRIT 34.9 % (42.0-54.0); HEMOGLOBIN 10.8 g/dL (13.5-17.5); IMMATURE GRANULOCYTES 0.6 % (0-5); LYMPHOCYTES 11.4 % (15-50); MCH 28.3 pg (26.0-34.0); MCHC 30.9 g/dL (31.0-37.0); MEAN PLATELET VOLUME 9.5 fL (7.4-10.4); MONOCYTES 11.1 % (2-11); NEUTROPHILS 76.8 % (40-80); PLATELET COUNT 409 10x3/uL (130-400); RBC 3.82 10x6/uL (4.20-6.10); RDW 20.7 % (11.5-14.5); WBC 16.2 10x3/uL (4.8-10.8)
[2019-07-30 06:13] LABS: MCV 91.4 fL (80.0-100.0)
[2019-07-30 06:37] LABS: CALCIUM 8.5 mg/dL (8.5-10.1); CARBON DIOXIDE 33.6 mmol/L (21.0-32.0); CREATININE - SERUM 1.2 mg/dL (0.6-1.3); MAGNESIUM - SERUM 1.7 mg/dL (1.8-2.4); POTASSIUM - SERUM 3.6 mmol/L (3.5-5.1)
[2019-07-30 06:39] LABS: PHOSPHOROUS 3.3 mg/dL (2.5-4.9)
[2019-07-30 08:49] VITALS: BP 108/69
--- NOTE | 2019-07-30 11:48 | NUR ---
OT NOTE: PT OUT FOR PROCEDURE THIS AM. GREG HARDING, OTR/L
[2019-07-30 12:39] VITALS: BP 148/76
--- NOTE | 2019-07-30 13:20 | MORECARE ---
CASE MANAGEMENT DISCHARGE SUMMARY PATIENT: MARVIN HYATT N UNIT: [id number] ADM DATE: 07/28/19 AGE: 79 : 40 SEX: M ROOM/BED: D.2229 AUTHOR: MINE SAUER PHYSICIAN: REFERRING PHYSICIAN: RAVINDRA VERMA MD DATE OF SERVICE: 07/30/19 Discharge Plan Patient Name: MARVIN HYATT Facility: [facility]:[place] : 1940 Planned Disposition: Detention Facility Anticipated Discharge Date: 07/30/19 Discharge Date: Expected LOS: 2 Initial Reviewer: [id number] Initial Review Date: 07/30/2019 Generated: 07/30/19 2:19 pm DCPIA - Discharge Planning Initial Assessment Updated by [email or web address]: Anais Muñiz on 07/30/19 1:16 pm * Is the patient Alert and Oriented? Yes * PCP Dr. Enrique * Pharmacy [facility] * Preadmission Environment Acute Inpatient Rehab * Facility Name [facility] * ADLs Total Dependent * Equipment Cane Elevated Tol[place] Seat Walker * List name and contact numbers for known caregivers / representatives who currently or will assist patient after discharge: Caroline [facility] - [phone] * Verbal permission to speak to the caregivers and representatives has been obtained from the patient. Yes * Community resources currently utilized None * Additional services required to return to the preadmission environment? No * Can the patient safely return to the preadmission environment? Yes * Has this patient been hospitalized within the prior 30 days at any hospital? Yes Patient Name: MARVIN HYATT Page 43683 at 1320 All edits/amendments must be made on the electronic document DICTATION DATE: 07/30/19 1319 GROUP UNDERWRITER: DYLAN 07/30/19 1319 RPT#: [id number] DC DATE: STATUS: ADM IN [facility] [address] [place] [address] END OF REPORT
--- NOTE | 2019-07-30 13:28 | MORECARE ---
CASE MANAGEMENT DISCHARGE SUMMARY PATIENT: MARVIN HAYTT UNIT: [id number] ADM DATE: 07/28/19 AGE: 79 : 40 SEX: M ROOM/BED: D.2229 AUTHOR: CAMAHCO,DOC PHYSICIAN: REFERRING PHYSICIAN: RAVINDRA VERMA MD DATE OF SERVICE: 07/30/19 Discharge Plan Patient Name: MARVIN HYATT Facility: [facility]:[place] : 1940 Planned Disposition: Fpc Facility Anticipated Discharge Date: 07/30/19 Discharge Date: Expected LOS: 2 Initial Reviewer: [email or web address] Initial Review Date: 07/30/2019 Generated: 07/30/19 2:28 pm Comments DCP- Discharge Planning Updated by [id number]: Anais Muñiz on 07/30/19 12:[address] Patient Name: MARVIN HYATT Admission Status: Elective Accout number: [id number] Admission Date: 07-28-2019 : 1940 Admission Diagnosis: Attending: RAVINDRA VERMA Current LOS: 2 Anticipated DC Date: 07-30-2019 Planned Disposition: Fpc Facility Primary Insurance: MEDICARE A & B Discharge Planning Comments: CM met with patient and his to discuss discharge planning/needs. I had spoken to Jackeline, comp field case manager in inpatient rehab, prior to speaking with . Jackeline states that he only had 5 more days of therapy to complete, then was going to need a skilled facility and she recommends he go to a skilled facility from acute care. I informed the what the comp field case manager on rehab suggested and she agrees with plan for skilled therapy. He still has a NG tube in place, so is not ready at this time. signed KATI for [facility]. I called [facility] and spoke with Kena and clinical faxed. CM will continue to follow and assist with discharge planning/needs. Mat Sewer: Anais Muñiz DCPIA - Discharge Planning Initial Assessment Updated by [email or web address]: Anais Muñiz on 07/30/19 1:16 pm * Is the patient Alert and Oriented? Yes * PCP Dr. Enrique * Pharmacy [facility] * Preadmission Environment Acute Inpatient Rehab * Facility Name [facility] * ADLs Total Dependent * Equipment Cane Elevated Toliet Seat Walker * List name and contact numbers for known caregivers / representatives who currently or will assist patient after discharge: Caroline - jarad - [phone] * Verbal permission to speak to the caregivers and representatives has been obtained from the patient. Yes * Community resources currently utilized None * Additional services required to return to the preadmission environment? No * Can the patient safely return to the preadmission environment? Yes * Has this patient been hospitalized within the prior 30 days at any hospital? Yes Last DP export: 07/30/19 12:20 p Patient Name: MARVIN HYATT Page [phone] at 1328 All edits/amendments must be made on the electronic document DICTATION DATE: 07/30/191327 RN IMAGING: DYLAN 07/30/191327 RPT#: [id number] DC DATE: STATUS: ADM IN [facility] [address] [place] [address] END OF REPORT
--- NOTE | 2019-07-30 13:38 | MORECARE ---
CASE MANAGEMENT DISCHARGE SUMMARY PATIENT: MARVIN HYATT UNIT: [id number] ADM DATE: 07/28/19 AGE: 79 : 40 SEX: M ROOM/BED: D.2229 AUTHOR: CAMACHO,DOC PHYSICIAN: REFERRING PHYSICIAN: RAVINDRA VERMA MD DATE OF SERVICE: 07/30/19 Discharge Plan Patient Name: MARVIN HYATT Facility: [facility]:[place] : 1940 Planned Disposition: Half-Way Facility Anticipated Discharge Date: 07/30/19 Discharge Date: Expected LOS: 2 Initial Reviewer: [id number] Initial Review Date: 07/30/2019 Generated: 07/30/19 2:38 pm Comments DCP- Discharge Planning Updated by [id number]: Anais Muñiz on 07/30/19 12:[address] Patient Name: MARVIN HYATT Admission Status: Elective Accout number: [id number] Admission Date: 07-28-2019 : 1940 Admission Diagnosis: Attending: RAVINDRA VERMA Current LOS: 2 Anticipated DC Date: 07-30-2019 Planned Disposition: Half-Way Facility Primary Insurance: MEDICARE A & B Discharge Planning Comments: CM met with patient and his to discuss discharge planning/needs. I had spoken to Jackeline, caseworker in inpatient rehab, prior to speaking with . Jackeline states that he only had 5 more days of therapy to complete, then was going to need a skilled facility and she recommends he go to a skilled facility from acute care. I informed the what the caseworker on rehab suggested and she agrees with plan for skilled therapy. He still has a NG tube in place, so is not ready at this time. signed KATI for [facility]. I called [facility] and spoke with Kena and clinical faxed. CM will continue to follow and assist with discharge planning/needs. Director Of Strategic Partnerships: Anais Muñiz DCPIA - Discharge Planning Initial Assessment Updated by [email or web address]: Anais Muñiz on 07/30/19 1:16 pm * Is the patient Alert and Oriented? Yes * PCP Dr. Enrique * Pharmacy [facility] * Preadmission Environment Acute Inpatient Rehab * Facility Name [facility] * ADLs Total Dependent * Equipment Cane Elevated Toliet Seat Walker * List name and contact numbers for known caregivers / representatives who currently or will assist patient after discharge: Caroline - spouse - [phone] * Verbal permission to speak to the caregivers and representatives has been obtained from the patient. Yes * Community resources currently utilized None * Additional services required to return to the preadmission environment? No * Can the patient safely return to the preadmission environment? Yes * Has this patient been hospitalized within the prior 30 days at any hospital? Yes External Providers External Provider: [facility] Next Contact Date: Service Request Date: Service Type: Resolution: Reviewer: Comments: Coverage Notice Reviewer: [id number] Malina Muñiz Notice Issued Date-Time: 07/30/2019 13:35 Notice Type: Patient Choice Letter Notice Delivered To: Family Member Relationship to Patient: Spouse Drupal Web Developer Name: [facility] Delivery Method: - Lindsey Days: Prior Verbal Notification: Recipient Understood Notice: Recipient Signature: Med Rec Note Co-signed by Attending: Coverage Notice Comment: Last DP export: 07/30/19 12:28 p Patient Name: MARVNI HYATT Page 13180 at 1338 All edits/amendments must be made on the electronic document DICTATION DATE: 07/30/191337 FINISHING RANGE FEEDER: DYLAN 07/30/191337 RPT#: [id number] DC DATE: STATUS: ADM IN [facility] [address] [place] [address] END OF REPORT
--- NOTE | 2019-07-30 13:41 | NUR ---
WOUND VAC DRESSING CHANGE DATE: 07/30/2019 WOUND LOCATION: abdomen WOUND MEASUREMENTS: 6cm x 1cm x 0.3cm (improved) Upper most incision is nearly healed. It was cleaned and covered with dry 4x4 WOUND DESCRIPTION: red/granulating MUSCLE, TENDON, OR BONE EXPOSED? no DRAINAGE AMOUNT/DESCRIPTION: scant ODOR? no TYPE OF SPONGE USED AND AMOUNT: black x 1 SETTINGS: -125mmhg low continuous TEACHING: healing process
[2019-07-30 16:55] VITALS: BP 146/70
--- NOTE | 2019-07-30 18:16 | NUR ---
NGTUBE REMOVED. PT TOLERATED WELL. CLEAR LIQUID DIET SERVED AND HAD NO COMPLICATIONS WITH IT.
[2019-07-30 20:00] VITALS: BP 123/100
--- NOTE | 2019-07-30 20:00 | NUR ---
PATIENT RESTING IN BED WITH SPOUSE AT BEDSIDE. NO S/S OF DISTRESS. NO C/O AT THIS TIME. PATIENT HAS IV IN RIGHT FOREARM NORMAL SALINE @ 100 ML/HR. IV PATENT WITHOUT REDNESS, SWELLING, OR TENDERNESS. PATIENT HAS A PACEMAKER. PATIENT HAS A ABDOMINAL MIDLINE INCISION WITH WOUND VAC DRESSING C/D/I. PATIENT HAS A DE LA ROSA. PATIENT HAS A FIRST STEP OVERLAY ONTOP OF BED. CALL LIGHT IN PLACE. WILL CONTINUE TO MONITOR.
[2019-07-31] VITALS: BP 123/77
--- NOTE | 2019-07-31 01:57 | NUR ---
I have reviewed this patient and I concur with the Shift Assessment completed by the Licensed Practical Nurse today this shift.
[2019-07-31 06:10] LABS: BASOPHILS 0.1 % (0-2); EOSINOPHILS 0 % (0-7); HEMATOCRIT 34.8 % (42.0-54.0); HEMOGLOBIN 10.8 g/dL (13.5-17.5); IMMATURE GRANULOCYTES 1.4 % (0-5); LYMPHOCYTES 11.3 % (15-50); MCH 28.4 pg (26.0-34.0); MCV 91.6 fL (80.0-100.0); MEAN PLATELET VOLUME 9.5 fL (7.4-10.4); MONOCYTES 11.4 % (2-11); NEUTROPHILS 75.8 % (40-80); PLATELET COUNT 441 10x3/uL (130-400); RDW 20.6 % (11.5-14.5); WBC 16.2 10x3/uL (4.8-10.8)
[2019-07-31 06:23] LABS: CALCIUM 8.5 mg/dL (8.5-10.1); CARBON DIOXIDE 29.7 mmol/L (21.0-32.0); CREATININE - SERUM 1.1 mg/dL (0.6-1.3); MAGNESIUM - SERUM 1.6 mg/dL (1.8-2.4)
[2019-07-31 06:26] LABS: POTASSIUM - SERUM 2.7 mmol/L (3.5-5.1)
--- NOTE | 2019-07-31 08:00 | NUR ---
WITH LORANNE IN ROOM. REMOVED FROM BEDPAN. NO FURTHER NEEDS AT THIS TIME. CL IN REACH. WILL REPLACE ELECTROLYTES. WCTM
[2019-07-31 08:45] VITALS: BP 149/80
[2019-07-31 11:43] LABS: % SATURATION 22 % (15-55); IRON 24 ug/dl (35-150); TOTAL IRON BIND CAPACITY 106 ug/dl (260-445); UNSAT IRON BIND CAPACITY 82 ug/dl (150-375)
[2019-07-31 12:45] VITALS: BP 136/81
--- NOTE | 2019-07-31 13:09 | NUR ---
FAMILY IN ROOM. REMOVED OFF OF BED LOZANO. CL IN REACH. AIR FLOW MATTRESS ON. LAYING ON BACK. TM
--- NOTE | 2019-07-31 16:43 | NUR ---
I ATTEMPTED 2X IV. GOT ANOTHER COWORKER KIRA DUMONT TO TRY 2X. ALL ATTEMPTS FAILED. CL IN REACH. WCTM
[2019-07-31 16:45] VITALS: BP 128/71
[2019-07-31 20:00] VITALS: BP 115/70
--- NOTE | 2019-07-31 20:00 | NUR ---
PATIENT RESTING IN BED WITH FAMILY AT BEDSIDE. NO S/S OF DISTRESS.NO C/O AT THIS TIME. PATIENT HAS A RIGHT FOREARM IV NORMAL SALINE @ 100 ML/HR. IV IS PATENT WITHOUT REDNESS, SWELLING OR TENDERNESS. PATIENT HAS A PACEMAKER. PATIENT HAS MIDLINE INCISION WITH WOUND VAC INTACT. PATIENT HAS A SKIN TEAR ON BUTTOCKS WITH PAD IN PLACE. OLYA HAS SCDS ON. CALL LIGHT IN PLACE. WILL CONTINUE TO MONITOR.
--- NOTE | 2019-08-01 01:46 | NUR ---
I have reviewed this patient and I concur with the Shift Assessment completed by the Licensed Practical Nurse today this shift.
[2019-08-01 04:00] VITALS: BP 95/52
[2019-08-01 05:39] LABS: BASOPHILS 0.2 % (0-2); EOSINOPHILS 0.1 % (0-7); HEMATOCRIT 36.9 % (42.0-54.0); HEMOGLOBIN 11.7 g/dL (13.5-17.5); IMMATURE GRANULOCYTES 1.9 % (0-5); LYMPHOCYTES 13.7 % (15-50); MCH 28.8 pg (26.0-34.0); MCHC 31.7 g/dL (31.0-37.0); MCV 90.9 fL (80.0-100.0); MEAN PLATELET VOLUME 9.7 fL (7.4-10.4); MONOCYTES 8.9 % (2-11); NEUTROPHILS 75.2 % (40-80); PLATELET COUNT 434 10x3/uL (130-400); RBC 4.06 10x6/uL (4.20-6.10); RDW 20.7 % (11.5-14.5); WBC 16.7 10x3/uL (4.8-10.8)
[2019-08-01 05:54] LABS: ANION GAP 13.6 mmol/L (8-16); CALCIUM 8.7 mg/dL (8.5-10.1); CARBON DIOXIDE 24.5 mmol/L (21.0-32.0); CREATININE - SERUM 1.1 mg/dL (0.6-1.3); PHOSPHOROUS 2.5 mg/dL (2.5-4.9)
[2019-08-01 05:56] LABS: MAGNESIUM - SERUM 2.1 mg/dL (1.8-2.4); POTASSIUM - SERUM 4.1 mmol/L (3.5-5.1)
--- NOTE | 2019-08-01 08:15 | NUR ---
PATIENT SITTING AT A 90 DEGREE ANGLE IN BED. AWAKE WATCHING TV. CL IN REACH. DAUGHTER DEEPALI IN ROOM. FRESH WATER PROVIDED. NO FURTHER NEEDS AT THIS TIME. WCTM
[2019-08-01 08:37] VITALS: BP 91/55
[2019-08-01 13:09] VITALS: BP 100/61
[2019-08-01 17:09] VITALS: BP 100/56
--- NOTE | 2019-08-01 20:00 | NUR ---
RESTING IN BED, DENIES PAIN OR NEEDS AT THIS TIME, AT BEDSIDE, CALL LIGHT IN REACH
[2019-08-01 20:30] VITALS: BP 89/51
[2019-08-02 00:32] VITALS: BP 100/62
[2019-08-02 04:15] VITALS: BP 107/64
[2019-08-02 05:58] LABS: HEMATOCRIT 34.4 % (42.0-54.0); HEMOGLOBIN 10.8 g/dL (13.5-17.5); MCH 28.2 pg (26.0-34.0); MCHC 31.4 g/dL (31.0-37.0); MCV 89.8 fL (80.0-100.0); MEAN PLATELET VOLUME 9.9 fL (7.4-10.4); PLATELET COUNT 353 10x3/uL (130-400); RBC 3.83 10x6/uL (4.20-6.10); RDW 21.1 % (11.5-14.5); WBC 18.2 10x3/uL (4.8-10.8)
[2019-08-02 06:12] LABS: ANION GAP 15.4 mmol/L (8-16); CALCIUM 8.3 mg/dL (8.5-10.1); CARBON DIOXIDE 20.5 mmol/L (21.0-32.0); CREATININE - SERUM 1.2 mg/dL (0.6-1.3); MAGNESIUM - SERUM 1.8 mg/dL (1.8-2.4); PHOSPHOROUS 2.5 mg/dL (2.5-4.9); POTASSIUM - SERUM 3.9 mmol/L (3.5-5.1)
--- NOTE | 2019-08-02 08:00 | NUR ---
PT IS SITTING UP IN BED COUGHING, VOMITED ABOUT 10CC OF LIGHT BROWN EMMESIS. NOT GROUND COFFEE LIKE BUT LIGHT BROWN WATERY COLOR WITH PHLEGHM IN IT. PT SPOUSE STATED THIS JUST STARTED THIS MORNING. CONTINUE TO MONITOR
[2019-08-02 08:52] VITALS: BP 120/75
[2019-08-02 09:26] LABS: LYMPHOCYTES 17 % (15-50); MONOCYTES 9 % (2-11); NEUTROPHILS 65 % (40-80); PLATELET ESTIMATE NORMAL; ROULEAUX OCC
[2019-08-02 12:34] VITALS: BP 106/86
--- NOTE | 2019-08-02 13:48 | MORECARE ---
CASE MANAGEMENT DISCHARGE SUMMARY PATIENT: MARVIN HYATT UNIT: [id number] ADM DATE: 07/28/19 AGE: 79 : 40 SEX: M ROOM/BED: D.2229 AUTHOR: CAMACHO,DOC PHYSICIAN: REFERRING PHYSICIAN: RAVINDRA VERMA MD DATE OF SERVICE: 08/02/19 Discharge Plan Patient Name: MARVIN HYATT Facility: [facility]:[place] : 1940 Planned Disposition: Detention Facility Anticipated Discharge Date: 07/30/19 Discharge Date: Expected LOS: 2 Initial Reviewer: [email or web address] Initial Review Date: 07/30/2019 Generated: 08/02/19 2:48 pm Comments DCP- Discharge Planning Updated by [email or web address]: Anais Muñiz on 08/02/19 12:[address] Updated clinical faxed to [facility]. CM will continue to follow and assist with discharge planning/needs. DCP- Discharge Planning Updated by [email or web address]: Anais Muñiz on 07/30/19 12:[address] Patient Name: MARVIN HYATT Admission Status: Elective Accout number: [id number] Admission Date: 07-28-2019 : 1940 Admission Diagnosis: Attending: RAVINDRA VERMA Current LOS: 2 Anticipated DC Date: 07-30-2019 Planned Disposition: Detention Facility Primary Insurance: MEDICARE A & B Discharge Planning Comments: CM met with patient and his to discuss discharge planning/needs. I had spoken to Jackeline case operator in inpatient rehab, prior to speaking with . Jackeline states that he only had 5 more days of therapy to complete, then was going to need a skilled facility and she recommends he go to a skilled facility from acute care. I informed the what the case operator on rehab suggested and she agrees with plan for skilled therapy. He still has a NG tube in place, so is not ready at this time. signed KATI for [facility]. I called [facility] and spoke with Kena and clinical faxed. CM will continue to follow and assist with discharge planning/needs. Roll Filler: Anais Muñiz DCPIA - Discharge Planning Initial Assessment Updated by [id number]: Anais Muñiz on 07/30/19 1:16 pm * Is the patient Alert and Oriented? Yes * PCP Dr. Enrique * Pharmacy [facility] * Preadmission Environment Acute Inpatient Rehab * Facility Name [facility] * ADLs Total Dependent * Equipment Cane Elevated Toliet Seat Walker * List name and contact numbers for known caregivers / representatives who currently or will assist patient after discharge: Caroline abraham - [phone] * Verbal permission to speak to the caregivers and representatives has been obtained from the patient. Yes * Community resources currently utilized None * Additional services required to return to the preadmission environment? No * Can the patient safely return to the preadmission environment? Yes * Has this patient been hospitalized within the prior 30 days at any hospital? Yes Coverage Notice Reviewer: [id number] - Anais Ulloaliz Notice Issued Date-Time: 07/30/2019 13:35 Notice Type: Patient Choice Letter Notice Delivered To: Family Member Relationship to Patient: Spouse Electrical Controls Engineer Name: [facility] Delivery Method: - Lindsey Days: Prior Verbal Notification: Recipient Understood Notice: Recipient Signature: Med Rec Note Co-signed by Attending: Coverage Notice Comment: Last DP export: 07/30/19 12:38 p Patient Name: MARVIN HYATT Page [id number] at 1348 All edits/amendments must be made on the electronic document DICTATION DATE: 08/02/19 1348 IRRIGATION EQUIPMENT MECHANIC: DYLAN 08/02/19 1348 RPT#: [id number] DC DATE: STATUS: ADM IN [facility] [address] [place] [address] END OF REPORT
--- NOTE | 2019-08-02 14:15 | NUR ---
WOUND VAC DRESSING CHANGE DATE: 08/02/2019 WOUND LOCATION: abdomen WOUND MEASUREMENTS: 5.8cm x 1cm x 0.2cm WOUND DESCRIPTION: red/granulating MUSCLE, TENDON, OR BONE EXPOSED? no DRAINAGE AMOUNT/DESCRIPTION: scant ODOR? no TYPE OF SPONGE USED AND AMOUNT: black x 1 SETTINGS: -125mmhg low continuous TEACHING: wound will be healed soon
--- NOTE | 2019-08-02 19:00 | NUR ---
PT RESTING IN BED WITH EYES OPEN, AT THE BEDSIDE. IV LOCATED TO RIGHT FOREARM RUNNING NS @ 100ML/HR. NO S/S OF DISTRESS AT THIS TIME, DENIES CURRENT NEEDS, WILL CONT TO MONITOR.
--- NOTE | 2019-08-02 19:49 | NUR ---
I have reviewed this patient and I concur with the Shift Assessment completed by the Licensed Practical Nurse today this shift.
[2019-08-02 21:25] VITALS: BP 87/54
[2019-08-03 01:00] VITALS: BP 89/56
--- NOTE | 2019-08-03 01:43 | NUR ---
2340) REC'D.IN BED HOB UP 40 DEGREES.EYES CLOSED RESP. DEEP AND EVEN.MIDLINE ABDOMINAL INCISION WITH WOUND VAC IN PLACE.DE LA ROSA PATENT DRAINING EDWARD COLORED URINE. AT BEDSIDE ASLEEP IN RECLINER WILL CONTINUE TO MONITOR FOR ANY CHGES AND FOLLOW CURRENT PLAN OF CARE.
[2019-08-03 05:14] LABS: BASOPHILS 0.3 % (0-2); EOSINOPHILS 0.1 % (0-7); HEMATOCRIT 33.8 % (42.0-54.0); HEMOGLOBIN 10.8 g/dL (13.5-17.5); IMMATURE GRANULOCYTES 3.6 % (0-5); LYMPHOCYTES 13.8 % (15-50); MCH 28.5 pg (26.0-34.0); MCV 89.2 fL (80.0-100.0); MEAN PLATELET VOLUME 9.7 fL (7.4-10.4); MONOCYTES 8.4 % (2-11); NEUTROPHILS 73.8 % (40-80); PLATELET COUNT 420 10x3/uL (130-400); RBC 3.79 10x6/uL (4.20-6.10); RDW 21.3 % (11.5-14.5); WBC 18.9 10x3/uL (4.8-10.8)
[2019-08-03 05:22] VITALS: BP 108/54
[2019-08-03 05:27] LABS: ANION GAP 14.9 mmol/L (8-16); CALCIUM 8.1 mg/dL (8.5-10.1); CARBON DIOXIDE 19.7 mmol/L (21.0-32.0); CREATININE - SERUM 1.5 mg/dL (0.6-1.3); MAGNESIUM - SERUM 1.7 mg/dL (1.8-2.4); PHOSPHOROUS 2.6 mg/dL (2.5-4.9); POTASSIUM - SERUM 3.6 mmol/L (3.5-5.1)
--- NOTE | 2019-08-03 08:27 | NUR ---
PATIENT RECIEVED RESTING IN BED WITH AT SIDE. ASSISTED WITH BED LOZANO WITH MED BM NOTED. REPOSITIONED PATIENT FOR AM MEAL. CL IN REACH
[2019-08-03 09:33] VITALS: BP 94/53
[2019-08-03 13:21] VITALS: BP 104/56
--- NOTE | 2019-08-03 14:44 | NUR ---
Nutrition follow-up: Diet: Full liquids Per speech, pt is not very interested in eating at this time Labs reviewed WT: 160# ? ilelus ProcalAmine PPN @ 60 ml/hr Pt now meeting estimated energy needs with current po intake; pt was also eating poorly on Rehab unit. Recommend PEG tube placement and nutrition support started if medically feasible. RDN following.
[2019-08-03 16:45] VITALS: BP 115/62
[2019-08-03 20:41] VITALS: BP 95/54
[2019-08-04 01:27] VITALS: BP 92/54
[2019-08-04 05:18] VITALS: BP 90/63
--- NOTE | 2019-08-04 07:05 | NUR ---
I have reviewed this patient and I concur with the Shift Assessment completed by the Licensed Practical Nurse today this shift.
[2019-08-04 07:15] LABS: ANION GAP 15.2 mmol/L (8-16); CALCIUM 7.8 mg/dL (8.5-10.1); CREATININE - SERUM 1.4 mg/dL (0.6-1.3); MAGNESIUM - SERUM 1.7 mg/dL (1.8-2.4); PHOSPHOROUS 3.1 mg/dL (2.5-4.9)
[2019-08-04 07:16] LABS: POTASSIUM - SERUM 4.2 mmol/L (3.5-5.1)
[2019-08-04 07:57] LABS: BASOPHILS 0.2 % (0-2); EOSINOPHILS 0 % (0-7); HEMATOCRIT 32.7 % (42.0-54.0); HEMOGLOBIN 10.3 g/dL (13.5-17.5); IMMATURE GRANULOCYTES 3.9 % (0-5); LYMPHOCYTES 8.6 % (15-50); MCH 28.4 pg (26.0-34.0); MCHC 31.5 g/dL (31.0-37.0); MCV 90.1 fL (80.0-100.0); MEAN PLATELET VOLUME 9.8 fL (7.4-10.4); MONOCYTES 4.4 % (2-11); NEUTROPHILS 82.9 % (40-80); PLATELET COUNT 354 10x3/uL (130-400); RBC 3.63 10x6/uL (4.20-6.10); RDW 21.3 % (11.5-14.5); WBC 17.3 10x3/uL (4.8-10.8)
--- NOTE | 2019-08-04 09:17 | NUR ---
PT LYING IN BED ASLEEP WITH SPOUSE AT BEDSIDE, PT O2 WAS 89 TURNED O2 UP TO 3L. PT STUDENT NURSE CALL[facility] TO ASSIST WITH PT HR WAS IRREGULAR. PT DOES HAVE A PACEMAKER BUT NOT ON TELEMETRY AT THIS TIME, PT WAS LYING ON BACK. RAISED HOB TO 30. PT WAS ASLEEP DURING THIS TIME. NO S/SX OF DISTRESS INTRUCTOR IN ROOM AT THIS TIME WELL WHICH WAS PERMITTED BY PT AND SPOUSE. CONTINUE WITH PLAN OF CARE
[2019-08-04 09:37] VITALS: BP 116/38
--- NOTE | 2019-08-04 09:50 | NUR ---
Nutrition follow-up: Visited with pt and . Pt did not eat any breakfast this am and pt looks completely worn out at this time. Discussed PEG tube placement with nutrition support with pt and . Pt would benefit from nutrition support if physician agrees and it is medically feasible. RDN following.
--- NOTE | 2019-08-04 12:09 | NUR ---
ASSISTED PHYSICAL THERAPY IN GETTING PT UP. WAS ONLY ABLE TO GET PT UP TO SIDE OF BED WITH AQSSISTANCE THEN PT BREATHING BECAME RAPID AND PT BECAME DIZZY. SPOUSE CONCERNED THAT NEW MEDICATION MAY BE MAKING PT MORE SLEEPY. PT IS NOT EATING AND CONTINUES TO SLEEP. O2 IS AT 94 ON 2L. NO OTHER SIGNS OF DISTRESS. CONTINUE WITH PLAN OF CARE
--- NOTE | 2019-08-04 12:38 | NUR ---
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 ~14% weight loss over the last month (185# on 06/17/19 - 160# now) 2. < 75% intake of estimated energy needs x 1 month. 3. 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 PHILLIP has spoken with pt and re: PEG tube placement - they are in agreement at this time. RDN recommends PEG placement with nutrition support started. RDN following.
[2019-08-04 13:16] VITALS: BP 103/65
[2019-08-04 13:31] LABS: BACTERIA MODERATE /hpf (NEGATIVE); BILIRUBIN NEGATIVE (NEGATIVE); EPITHELIAL CELLS 0-5 /hpf (0-5); GLUCOSE NEGATIVE (NEGATIVE); KETONE NEGATIVE (NEGATIVE); NITRITE NEGATIVE (NEGATIVE); RED CELLS - URINE 0-5 /hpf (0-5); UROBILINOGEN NORMAL (NORMAL); WHITE CELLS - URINE 0-5 /hpf (NEGATIVE); YEAST >1+ WITH HYPHAE /hpf (NONE SEEN)
--- NOTE | 2019-08-04 13:41 | NUR ---
WOUND VAC DRESSING CHANGE DATE: 08/04/2019 WOUND LOCATION: ABDOMEN WOUND MEASUREMENTS: 5.5CM X 1CM X 0.2CM WOUND DESCRIPTION: RED MUSCLE, TENDON, OR BONE EXPOSED? NO DRAINAGE AMOUNT/DESCRIPTION: NO ODOR? NO TYPE OF SPONGE USED AND AMOUNT: BLACK X 1 SETTINGS:-125MMHG LOW CONTINUOUS
--- NOTE | 2019-08-04 14:04 | NUR ---
I have reviewed this patient and I concur with the Shift Assessment completed by the Licensed Practical Nurse today this shift.
[2019-08-04 17:32] VITALS: BP 114/73
[2019-08-04 22:12] VITALS: BP 93/60
[2019-08-05 00:56] VITALS: BP 92/60
[2019-08-05 04:46] VITALS: BP 91/69
[2019-08-05 05:18] LABS: ANION GAP 17.6 mmol/L (8-16); CALCIUM 8.2 mg/dL (8.5-10.1); CREATININE - SERUM 1.1 mg/dL (0.6-1.3); MAGNESIUM - SERUM 1.8 mg/dL (1.8-2.4); POTASSIUM - SERUM 4.6 mmol/L (3.5-5.1)
[2019-08-05 05:19] LABS: PHOSPHOROUS 2.2 mg/dL (2.5-4.9)
[2019-08-05 05:49] LABS: HEMATOCRIT 35.6 % (42.0-54.0); HEMOGLOBIN 11.1 g/dL (13.5-17.5); MCH 28.8 pg (26.0-34.0); MCHC 31.2 g/dL (31.0-37.0); MEAN PLATELET VOLUME 10.4 fL (7.4-10.4); PLATELET COUNT 337 10x3/uL (130-400); RBC 3.86 10x6/uL (4.20-6.10); WBC 15.3 10x3/uL (4.8-10.8)
[2019-08-05 05:51] LABS: MCV 92.2 fL (80.0-100.0)
[2019-08-05 08:45] VITALS: BP 84/60
[2019-08-05 10:35] LABS: ANISOCYTOSIS OCC; CRENATED CELLS OCC; LYMPHOCYTES 12 % (15-50); MONOCYTES 2 % (2-11); NEUTROPHILS 71 % (40-80); PLATELET ESTIMATE NORMAL; PLATELET MORPHOLOGY PLT CLUMPS PRESENT; POLYCHROMASIA OCC; ROULEAUX OCC; SMUDGE CELLS 1+
[2019-08-05 12:32] VITALS: BP 92/55
--- NOTE | 2019-08-05 14:43 | NUR ---
OT NOTE: ASSISTED PHYS THERAPY TO ASSIST PT TO EOB. REQUIRED MAX ASSIST; ROLLING SIDE TO SIDE WITH MAX ASSIST; SITTING WITH MIN ASSIST FOR BALANCE.. ATTEMPTED UE AROM EXS, HOWEVER, PT WAS VERY WEAK AND UNABLE TO DO GREATER THAN 1 REP AT A TIME. ATTEMPTED TO WIPE FACE AND HANDS WITH CLOTH, HOWEVER, REQUIRED ASSIST DUE TO WEAKNESS; MAX ASSIST TO POSITION ON BED LOZANO. HOWEVER, PT IS DOING BETTER TODAY THAN SHE HAS BEEN. GREG HARDING, OTR/L [id number]
--- NOTE | 2019-08-05 16:00 | NUR ---
I have reviewed this patient and I concur with the Shift Assessment completed by the Licensed Practical Nurse today this shift.
[2019-08-05 16:49] VITALS: BP 133/70
--- NOTE | 2019-08-05 20:00 | NUR ---
PATIENT RESTING IN BED WITH EYES OPEN AND SPOUSE AT BEDSIDE. NO S/S OF DISTRESS. NO C/O AT THIS TIME. PATIENT HAS IV IN RIGHT FOREARM NORMAL SALINE @ 10 ML/HR AND PROCAL @ 60 ML/HR. IV IS PATENT WITHOUT REDNESS, SWELLING, OR TENDERNESS. PATIENT HAS LEFT SIDED PACEMAKER. PATIENT HAS A MILDINE INCISION ON ABDOMEN WITH WOUND VAC IN PLACE. PATIENT'S STOMACH IS SLIGHTLY DISTENDED. PATIENT HAS A HEALING INCISION ON RIGHT HIP FROM PAST SURGERY. PATIENT HAS A TEAR ON COCCYX. CALL LIGHT IN PLACE. WILL CONTINUE TO MONITOR.
--- NOTE | 2019-08-05 21:47 | NUR ---
PATIENT WAS GIVEN MEDICINE IN APPLE SAUCE SINCE PATIENT REFUSED TO TAKE IT WITH ONLY WATER. PATIENT SPIT UP BOTH MEDICATIONS AND WOULD NOT TAKE THEM. PATIENT DID NOT CHOKE. PATIENT DRANK WATER AND SAID HIS WAS FINE. CALL LIGHT IN PLACE WILL CONTINUE TO MONITOR.
[2019-08-05 23:12] VITALS: BP 88/52
--- NOTE | 2019-08-06 04:16 | NUR ---
I have reviewed this patient and I concur with the Shift Assessment completed by the Licensed Practical Nurse today this shift.
[2019-08-06 04:35] VITALS: BP 98/64
[2019-08-06 06:05] LABS: BASOPHILS 0.4 % (0-2); EOSINOPHILS 0.1 % (0-7); HEMATOCRIT 36.1 % (42.0-54.0); HEMOGLOBIN 11.3 g/dL (13.5-17.5); IMMATURE GRANULOCYTES 5.5 % (0-5); LYMPHOCYTES 12.9 % (15-50); MCH 28.2 pg (26.0-34.0); MCHC 31.3 g/dL (31.0-37.0); MEAN PLATELET VOLUME 9.5 fL (7.4-10.4); NEUTROPHILS 70.1 % (40-80); PLATELET COUNT 366 10x3/uL (130-400); RBC 4.01 10x6/uL (4.20-6.10); RDW 21.3 % (11.5-14.5); WBC 16.5 10x3/uL (4.8-10.8)
[2019-08-06 06:30] LABS: ANION GAP 12.8 mmol/L (8-16); CALCIUM 8.1 mg/dL (8.5-10.1); CARBON DIOXIDE 19.5 mmol/L (21.0-32.0); CREATININE - SERUM 1.1 mg/dL (0.6-1.3); MAGNESIUM - SERUM 1.8 mg/dL (1.8-2.4); PHOSPHOROUS 1.9 mg/dL (2.5-4.9); POTASSIUM - SERUM 4.3 mmol/L (3.5-5.1)
[2019-08-06 07:55] VITALS: BP 88/53
--- NOTE | 2019-08-06 09:00 | NUR ---
ALERT AND ORIENTED X4. IVF INFUSING AT PRESCRIBED RATE. ABDOMEN SOFT WITH BOWEL SOUNDS NOTED X4. DE LA ROSA CATH INTACT. GENERALIZED WEAKNESS NOTED. ENCOURAGED TO USE CALL LIGHT FOR ASSSIT WTH FAMILY NOTED. SKIN TEAR NOTED TO COCCYX WITH DRESSING APPLIED WITH NO S/S OF INFECTION.
[2019-08-06 09:21] VITALS: BP 174/98
--- NOTE | 2019-08-06 11:14 | NUR ---
NUTRITION F/U PT TOLERATING FULL LIQUID DIET. ONLY ~25% INTAKE MEALS. SPOUSE IS ORDERING ENSURE PRN AND ENCOURAGING PT. STATED HE CONSUMED "ALMOST HALF OF ONE THIS AM." PT CONTINUES PROCALAMINE AT 60 CC/HR. RD FOLLOWING
[2019-08-06 13:12] VITALS: BP 118/52
--- NOTE | 2019-08-06 14:16 | NUR ---
OT NOTE: BED MOB WITH MAX ASSSIST; MAX ASSIST WITH SITTING BALANCE TODAY. PT CONTINUALLY LEANING TO R SIDE AND UNABLE TO ORIENT TO UPRIGHT SITTING. R UE STRENGHT REMAINS UNCHANGED, BUT R SIDE TRUNK IS MORE WEAK. ASSISTED WITH PROM EXS TO FULL RANGE; BED MOB INCLUDING ROLLING SIDE TO SIDE X 6 TIMES.. GREG HARDING, OTR/L [id number]
--- NOTE | 2019-08-06 14:52 | NUR ---
WOUND VAC DISCONTINUED. INCISION MEASURING 5CM X 0.8CM. NO DEPTH. WOUND BED RED. NO ODOR OR DRAINAGE NOTED. COVERED WITH MEPILEX BORDER LITE FOR PROTECTION. WOUND CARE WILL CONTINUE MONITORING.
[2019-08-06 16:24] VITALS: BP 110/61
[2019-08-06 19:30] VITALS: BP 98/64
[2019-08-07 00:30] VITALS: BP 85/62
--- NOTE | 2019-08-07 02:36 | NUR ---
ASSESSED AT THE BEGINNING OF THE SHIFT. PT IS LETHARGIC AND HARD TO AROUSE. FAMILY REMAIN AT THE BEDSIDE. AT TIME OF HS MED PASS IT WAS DETERMINED THAT HE WAS NOT GOING TO BE ABLE TO AROUSE ENOUGH TO SWALLOW MEDS. FAMILY STATED EARLIER IN THE DAY HE HAD COUGHED UP MUCH OF WHAT WAS GIVEN TO HIM TO DRINK. YAUNKER IS AT THE BEDSIDE NEEDED. O2 REMAINS IN PLACE WITH GOOD O2 SATS. ALL IV MEDS ARE GIVEN. WE HAVE BEEN REPOSITIONING HIME ABOUT EVERY 2 HRS. THERE IS A LARGE AREA ON HIS COCCYX THAT IS RED AND BREAKING DOWN. ORDERS FOR CALMOSEPTINE WERE CARRIED OUT. HOB IS KEPT UP TO ASSIST WITH BREATHING.
[2019-08-07 05:00] VITALS: BP 123/63
[2019-08-07 06:35] LABS: CALC OSMOLALITY 287 mosm/kg (275-300); CALCIUM 7.8 mg/dL (8.5-10.1); CARBON DIOXIDE 15.9 mmol/L (21.0-32.0); CHLORIDE - SERUM 112 mmol/L (98-107); GLUCOSE 135 mg/dL (74-106); MAGNESIUM - SERUM 1.7 mg/dL (1.8-2.4); PHOSPHOROUS 2.3 mg/dL (2.5-4.9); POTASSIUM - SERUM 4.5 mmol/L (3.5-5.1); SODIUM 139 mmol/L (136-145); UREA NITROGEN 36 mg/dL (7-18); eGFR NON AFRICAN AMERICAN 76 mL/min (90-120)
[2019-08-07 06:44] LABS: HEMATOCRIT 33.6 % (42.0-54.0); HEMOGLOBIN 10.8 g/dL (13.5-17.5); MCHC 32.1 g/dL (31.0-37.0); MCV 90.1 fL (80.0-100.0); MEAN PLATELET VOLUME 9.8 fL (7.4-10.4); PLATELET COUNT 340 10x3/uL (130-400); RBC 3.73 10x6/uL (4.20-6.10); RDW 21.8 % (11.5-14.5)
[2019-08-07 07:22] LABS: LYMPHOCYTES 9 % (15-50); MONOCYTES 12 % (2-11); NEUTROPHILS 61 % (40-80); PLATELET ESTIMATE NORMAL
[2019-08-07 08:37] VITALS: BP 99/50
--- NOTE | 2019-08-07 10:20 | NUR ---
UP IN CHAIR, FAMILY IN ROOM, NO DISTRESS NOTED, IV INFUSING, O2 PER NC, SMALL DRESSING TO ABD DRY AND INTACT, DE LA ROSA TO GRAVITY, EDWARD IN COLOR
[2019-08-07 13:13] VITALS: BP 98/41
[2019-08-07 16:18] VITALS: BP 96/56
[2019-08-07 19:58] VITALS: BP 112/55
--- NOTE | 2019-08-07 20:30 | NUR ---
RESTING QUETILY WITH NO DISTRESS NOTED. RESP UNALBORED.O2 @ 6L PER HIGHFLOW ON. DRESSING TO LOWER ABD INTACT WITHOUT DRAINAGE NOTED. IV TO RFA INTACT WITHOUT REDNESS OR EDEMA NOTED. TURNED AND POSITIONED FOR COMFORT. FAMILY AT BEDSIDE
[2019-08-08 04:00] VITALS: BP 102/70
--- NOTE | 2019-08-08 04:38 | NUR ---
I have reviewed this patient and I concur with the Shift Assessment completed by the Licensed Practical Nurse today this shift.
[2019-08-08 08:02] LABS: CALC OSMOLALITY 284 mosm/kg (275-300); CALCIUM 7.8 mg/dL (8.5-10.1); CARBON DIOXIDE 19.9 mmol/L (21.0-32.0); CHLORIDE - SERUM 110 mmol/L (98-107); CREATININE - SERUM 0.9 mg/dL (0.6-1.3); GLUCOSE 130 mg/dL (74-106); MAGNESIUM - SERUM 1.8 mg/dL (1.8-2.4); PHOSPHOROUS 1.9 mg/dL (2.5-4.9); POTASSIUM - SERUM 4.3 mmol/L (3.5-5.1); SODIUM 138 mmol/L (136-145); UREA NITROGEN 31 mg/dL (7-18); eGFR NON AFRICAN AMERICAN 86 mL/min (90-120)
[2019-08-08 08:17] LABS: BASOPHILS 0.3 % (0-2); EOSINOPHILS 0.5 % (0-7); HEMATOCRIT 34.2 % (42.0-54.0); IMMATURE GRANULOCYTES 2.9 % (0-5); LYMPHOCYTES 20.4 % (15-50); MCH 28.7 pg (26.0-34.0); MCHC 32.2 g/dL (31.0-37.0); MCV 89.3 fL (80.0-100.0); MEAN PLATELET VOLUME 9.6 fL (7.4-10.4); MONOCYTES 14.2 % (2-11); NEUTROPHILS 61.7 % (40-80); PLATELET COUNT 316 10x3/uL (130-400); RBC 3.83 10x6/uL (4.20-6.10); RDW 21.7 % (11.5-14.5); WBC 10.7 10x3/uL (4.8-10.8)
[2019-08-08 08:40] VITALS: BP 112/67
--- NOTE | 2019-08-08 10:12 | NUR ---
resting in bed, no distress noted, iv infusing with procal, cont to turn q 2 hrs, o2 per nc, family in room
[2019-08-08 12:33] VITALS: BP 105/52
[2019-08-08 17:21] VITALS: BP 99/78
[2019-08-08 19:30] VITALS: BP 145/90; BP 99/56
--- NOTE | 2019-08-08 20:30 | NUR ---
AWAKE,ALERT.NO COMPLIANTS VOICED. RESP EVEN AND UNALBORED. O2 @ 6L PER HIGHFLOW ON. NO DISTRESS NOTED. IV TO RFA INTACT WITHOUT REDNESS OR EDEMA NOTED. CL IN REACH. TURNED AND POSITIONED FOR COMFORT. AT BEDSIDE
[2019-08-09] VITALS: BP 101/57
[2019-08-09 04:00] VITALS: BP 103/63
--- NOTE | 2019-08-09 05:28 | NUR ---
I have reviewed this patient and I concur with the Shift Assessment completed by the Licensed Practical Nurse today this shift.
--- NOTE | 2019-08-09 08:39 | NUR ---
OT NOTE: (DOS 08/06/19) PT REQUIRED MAX A FOR POSITIONING IN BED. PT COMPLETED UE AAROM AXS. PT REQUIRED MIN/MOD A WITH SIMPLE HYGIENE AND GROOMING TASKS. [phone] THANK YOU, DERREK SIGALA
[2019-08-09 08:50] VITALS: BP 97/62
[2019-08-09 09:55] LABS: BASOPHILS 0.2 % (0-2); EOSINOPHILS 0.4 % (0-7); HEMATOCRIT 35.4 % (42.0-54.0); HEMOGLOBIN 11.4 g/dL (13.5-17.5); LYMPHOCYTES 24.8 % (15-50); MCH 28.4 pg (26.0-34.0); MCHC 32.2 g/dL (31.0-37.0); MCV 88.3 fL (80.0-100.0); MEAN PLATELET VOLUME 9.2 fL (7.4-10.4); MONOCYTES 11.3 % (2-11); NEUTROPHILS 61.3 % (40-80); PLATELET COUNT 324 10x3/uL (130-400); RBC 4.01 10x6/uL (4.20-6.10); RDW 21.7 % (11.5-14.5); WBC 10.2 10x3/uL (4.8-10.8)
[2019-08-09 10:07] LABS: CALC OSMOLALITY 280 mosm/kg (275-300); CALCIUM 7.9 mg/dL (8.5-10.1); CARBON DIOXIDE 23.4 mmol/L (21.0-32.0); CHLORIDE - SERUM 109 mmol/L (98-107); CREATININE - SERUM 0.8 mg/dL (0.6-1.3); GLUCOSE 107 mg/dL (74-106); MAGNESIUM - SERUM 1.9 mg/dL (1.8-2.4); POTASSIUM - SERUM 4.2 mmol/L (3.5-5.1); SODIUM 138 mmol/L (136-145); UREA NITROGEN 26 mg/dL (7-18); eGFR NON AFRICAN AMERICAN > 90 mL/min (90-120)
--- NOTE | 2019-08-09 11:28 | NUR ---
PATIENT IS WITHOUT NEEDS.PICC LINE PLACED BY WALTER. MONITOR
[2019-08-09 13:23] VITALS: BP 103/72
--- NOTE | 2019-08-09 14:15 | NUR ---
Nutrition follow-up: Pt NPO due to continued ileus, SBO PICC line placed today for TPN ProcalAmine PPN @ 75 ml/hr labs reviewed Ordered placed for TPN to start @ 40 ml/hr TG ordered and will start lipids if WNL. RDN following.
[2019-08-09 16:19] VITALS: BP 110/70
[2019-08-09 19:30] VITALS: BP 125/79
--- NOTE | 2019-08-09 22:52 | NUR ---
PT LYING IN BED WITH SPOUSE AT BEDSIDE, REPOSITIONED PT PT NEEDS TO BE TURNED Q2. NO NEEDS VOICED BY PT. CL IN REACH CONTINUE WITH PLAN OF CARE
[2019-08-10] VITALS: BP 128/77
--- NOTE | 2019-08-10 01:09 | NUR ---
I have reviewed this patient and I concur with the Shift Assessment completed by the Licensed Practical Nurse today this shift.
[2019-08-10 04:00] VITALS: BP 113/67
[2019-08-10 04:27] LABS: BASOPHILS 0.1 % (0-2); EOSINOPHILS 0.5 % (0-7); HEMATOCRIT 31.4 % (42.0-54.0); HEMOGLOBIN 10.1 g/dL (13.5-17.5); IMMATURE GRANULOCYTES 1.6 % (0-5); LYMPHOCYTES 24.7 % (15-50); MCH 28.5 pg (26.0-34.0); MCHC 32.2 g/dL (31.0-37.0); MCV 88.7 fL (80.0-100.0); MEAN PLATELET VOLUME 9.1 fL (7.4-10.4); MONOCYTES 10.8 % (2-11); NEUTROPHILS 62.3 % (40-80); PLATELET COUNT 313 10x3/uL (130-400); RBC 3.54 10x6/uL (4.20-6.10); RDW 21.3 % (11.5-14.5); WBC 8.3 10x3/uL (4.8-10.8)
[2019-08-10 04:37] LABS: CALC OSMOLALITY 279 mosm/kg (275-300); CALCIUM 7.4 mg/dL (8.5-10.1); CARBON DIOXIDE 23.5 mmol/L (21.0-32.0); CHLORIDE - SERUM 109 mmol/L (98-107); CREATININE - SERUM 0.7 mg/dL (0.6-1.3); GLUCOSE 121 mg/dL (74-106); MAGNESIUM - SERUM 1.7 mg/dL (1.8-2.4); PHOSPHOROUS 2.1 mg/dL (2.5-4.9); SODIUM 138 mmol/L (136-145); UREA NITROGEN 21 mg/dL (7-18); eGFR NON AFRICAN AMERICAN > 90 mL/min (90-120)
[2019-08-10 04:47] LABS: POTASSIUM - SERUM 3.5 mmol/L (3.5-5.1)
--- NOTE | 2019-08-10 08:20 | NUR ---
Nutrition follow-up: Pt NPO TPN started 08/09 @ 40 ml/hr Labs reviewed TPN formula adjusted, rate increased to 60 ml/hr 20% 250 ml intralipids added q 48 hours RDN following.
[2019-08-10 08:30] VITALS: BP 148/115
[2019-08-10 09:45] VITALS: BP 133/73
[2019-08-10 16:14] VITALS: BP 107/62
--- NOTE | 2019-08-10 16:31 | MORECARE ---
CASE MANAGEMENT DISCHARGE SUMMARY PATIENT: MARVIN HYATT UNIT: [id number] ADM DATE: 07/28/19 AGE: 79 : 40 SEX: M ROOM/BED: D.2229 AUTHOR: CAMACHO,DOC PHYSICIAN: REFERRING PHYSICIAN: RAVINDRA VERMA MD DATE OF SERVICE: 08/10/19 Discharge Plan Patient Name: MARVIN HYATT Facility: [facility]:[place] : 1940 Planned Disposition: Fdc Facility Anticipated Discharge Date: 07/30/19 Discharge Date: Expected LOS: 2 Initial Reviewer: [email or web address] Initial Review Date: 07/30/2019 Generated: 08/10/19 5:31 pm DCP- Discharge Planning Updated by [id number]: Anais Muñiz on 08/02/19 12:[address] Updated clinical faxed to [facility]. CM will continue to follow and assist with discharge planning/needs. DCP- Discharge Planning Updated by [email or web address]: Anais Muñiz on 07/30/19 12:[address] Patient Name: MARVIN HYATT Admission Status: Elective Accout number: [id number] Admission Date: 07-28-2019 : 1940 Admission Diagnosis: Attending: RAVINDRA VERMA Current LOS: 2 Anticipated DC Date: 07-30-2019 Planned Disposition: Fdc Facility Primary Insurance: MEDICARE A & B Discharge Planning Comments: CM met with patient and his to discuss discharge planning/needs. I had spoken to Jackeline child support case officer in inpatient rehab, prior to speaking with . Jackeline states that he only had 5 more days of therapy to complete, then was going to need a skilled facility and she recommends he go to a skilled facility from acute care. I informed the what the child support case officer on rehab suggested and she agrees with plan for skilled therapy. He still has a NG tube in place, so is not ready at this time. signed KATI for [facility]. I called [facility] and spoke with Kena and clinical faxed. CM will continue to follow and assist with discharge planning/needs. Corporate Claims Examiner: Anais Muñiz DCPIA - Discharge Planning Initial Assessment Updated by [email or web address]: Anais Muñiz on 07/30/19 1:16 pm * Is the patient Alert and Oriented? Yes * PCP Dr. Enrique * Pharmacy [facility] * Preadmission Environment Acute Inpatient Rehab * Facility Name [facility] * ADLs Total Dependent * Equipment Cane Elevated Toliet Seat Walker * List name and contact numbers for known caregivers / representatives who currently or will assist patient after discharge: Caroline abraham - [phone] * Verbal permission to speak to the caregivers and representatives has been obtained from the patient. Yes * Community resources currently utilized None * Additional services required to return to the preadmission environment? No * Can the patient safely return to the preadmission environment? Yes * Has this patient been hospitalized within the prior 30 days at any hospital? Yes External Providers External Provider: Antonieta Linares [facility] Next Contact Date: Service Request Date: Service Type: Resolution: Reviewer: Comments: Coverage Notice Reviewer: [email or web address] - Anais Ulloaliz Notice Issued Date-Time: 07/30/2019 13:35 Notice Type: Patient Choice Letter Notice Delivered To: Family Member Relationship to Patient: Spouse Credit Review Analyst Name: [facility] Delivery Method: - Lindsey Days: Prior Verbal Notification: Recipient Understood Notice: Recipient Signature: Med Rec Note Co-signed by Attending: Coverage Notice Comment: Last DP export: 08/02/19 12:48 p Patient Name: MARVIN HYATT Page [id number] at 1631 All edits/amendments must be made on the electronic document DICTATION DATE: 08/10/19 1631 CONTRACT PROCESSOR: DYLAN 08/10/19 1631 RPT#: [id number] DC DATE: STATUS: ADM IN [facility] [address] [place] [address] END OF REPORT
--- NOTE | 2019-08-10 16:38 | MORECARE ---
CASE MANAGEMENT DISCHARGE SUMMARY PATIENT: MARVIN HYATT UNIT: [id number] ADM DATE: 07/28/19 AGE: 79 : 40 SEX: M ROOM/BED: D.2229 AUTHOR: CAMACHODOC PHYSICIAN: REFERRING PHYSICIAN: RAVINDRA VERMA MD DATE OF SERVICE: 08/10/19 Discharge Plan Patient Name: MARVIN HYATT Facility: [facility]:[place] : 1940 Planned Disposition: Retirement Facility Anticipated Discharge Date: 07/30/19 Discharge Date: Expected LOS: 2 Initial Reviewer: [email or web address] Initial Review Date: 07/30/2019 Generated: 08/10/19 5:38 pm Comments DCP- Discharge Planning Updated by [email or web address]: Anais Ulloaliz on 08/10/19 3:[address] Spoke with Tonya with [facility] in [place] to see if he could be a candidate for their facility. Tonya states it may be possible even though he has not had a 3 MN stay in ICU. I faxed clinical for her to review per her request. CM will continue to follow and assist with discharge planning/needs. DCP- Discharge Planning Updated by [id number]: Anais Antonino on 08/02/19 12:[address] Updated clinical faxed to [facility]. CM will continue to follow and assist with discharge planning/needs. DCP- Discharge Planning Updated by [email or web address]: Anais Ulloaliz on 07/30/19 12:[address] Patient Name: MARVIN HYATT Admission Status: Elective Accout number: [id number] Admission Date: 07-28-2019 : 1940 Admission Diagnosis: Attending: RAVINDRA VERMA Current LOS: 2 Anticipated DC Date: 07-30-2019 Planned Disposition: Retirement Facility Primary Insurance: MEDICARE A & B Discharge Planning Comments: CM met with patient and his to discuss discharge planning/needs. I had spoken to Jackeline, manager of case management in inpatient rehab, prior to speaking with . Jackeline states that he only had 5 more days of therapy to complete, then was going to need a skilled facility and she recommends he go to a skilled facility from acute care. I informed the what the manager of case management on rehab suggested and she agrees with plan for skilled therapy. He still has a NG tube in place, so is not ready at this time. signed KATI for [facility]. I called [facility] and spoke with Kena and clinical faxed. CM will continue to follow and assist with discharge planning/needs. Train Inspector: Anais Ulloaliz DCPIA - Discharge Planning Initial Assessment Updated by [email or web address]: Anasi Muñiz on 07/30/19 1:16 pm * Is the patient Alert and Oriented? Yes * PCP Dr. Enrique * Pharmacy [facility] * Preadmission Environment Acute Inpatient Rehab * Facility Name [facility] * ADLs Total Dependent * Equipment Cane Elevated Toliet Seat Walker * List name and contact numbers for known caregivers / representatives who currently or will assist patient after discharge: Caroline - spouse - [phone] * Verbal permission to speak to the caregivers and representatives has been obtained from the patient. Yes * Community resources currently utilized None * Additional services required to return to the preadmission environment? No * Can the patient safely return to the preadmission environment? Yes * Has this patient been hospitalized within the prior 30 days at any hospital? Yes Coverage Notice Reviewer: [id number] - Anais Muñiz Notice Issued Date-Time: 07/30/2019 13:35 Notice Type: Patient Choice Letter Notice Delivered To: Family Member Relationship to Patient: Spouse Trenching Machine Operator Name: [facility] Delivery Method: - Lindsey Days: Prior Verbal Notification: Recipient Understood Notice: Recipient Signature: Med Rec Note Co-signed by Attending: Coverage Notice Comment: Last DP export: 08/10/19 3:31 p Patient Name: MARVIN HYATT Page [id number] at 1638 All edits/amendments must be made on the electronic document DICTATION DATE: 08/10/191637 BOIL OFF MACHINE OPERATOR CLOTH: DYLAN 08/10/191637 RPT#: [id number] [place] DATE: STATUS: ADM IN [facility] [address] [place] [address] END OF REPORT
--- NOTE | 2019-08-10 17:18 | NUR ---
OT NOTE: PT REMAINS VERY LETHARGIC THROUGHOUT THE DAY. WORKED EXTENSIVELY ON SITTING BALANCE AND TRUNK STRENGTHENING. PT CONFUSED AND DISORIENTED AND REQUIRES CONSTANT CUEING FOR PARTICIPATION. TOLERATED EOB SITTING X APPROX 15 MIN WITH OCCASSIONAL MAX ASSIST AND FOR APPROX 1 MIN AT A TIME, PT WAS ABLE TO MAINTAIN STATIC SITTING WITHOUT SUPPORT. ENCOURAGED PT TO PERFORM ADLS, HOWEVER, REQUIRED MAX ASSIST WITH ALL ATTEMPTS. BED MOB INCLUDING SUPINE TO SIT AND ROLLING SIDE TO SIDE WITH MAX ASSIST. MAX ASSIST WITH AROM EXS AGAINST GRAVITY. GREG HARDING, OTR/L [id number]
--- NOTE | 2019-08-10 17:31 | NUR ---
OT NOTE: PT REQUIRED MAX A X3 FOR SUPINE TO SIT. PT COMPLETED EOB SITTING WITH MIN A SECONDARY TO TRUNK WEAKNESS. PT COMPLETED ORAL HYGIEN AND FACE WASH WITH TOTAL A AT EOB. 120-142 THANK YOU,DERREK SIGALA
[2019-08-10 20:00] VITALS: BP 122/68
--- NOTE | 2019-08-10 20:00 | NUR ---
RESTING IN BED AT BEDSIDE, SHAKES HEAD NO WHEN ASK IF HAVING ANY PAIN, SEE SHIFT ASSESSMENT, CALL LIGHT IN REACH
--- NOTE | 2019-08-10 20:00 | NUR ---
ALERT RESTING IN BED, AT BEDSIDE, DENIES PAIN OR NEEDS AT THIS TIME, SEE SHIFT ASSESSMENT, CALL LIGHT IN REACH
[2019-08-11] VITALS (7 sets, daily range): BP systolic 96–132; BP diastolic 56–99
[2019-08-11 07:29] LABS: BASOPHILS 0.1 % (0-2); EOSINOPHILS 0.5 % (0-7); HEMATOCRIT 31.4 % (42.0-54.0); HEMOGLOBIN 10.1 g/dL (13.5-17.5); IMMATURE GRANULOCYTES 1.2 % (0-5); LYMPHOCYTES 25.8 % (15-50); MCH 28.8 pg (26.0-34.0); MCHC 32.2 g/dL (31.0-37.0); MCV 89.5 fL (80.0-100.0); MEAN PLATELET VOLUME 8.9 fL (7.4-10.4); MONOCYTES 10.5 % (2-11); NEUTROPHILS 61.9 % (40-80); PLATELET COUNT 285 10x3/uL (130-400); RBC 3.51 10x6/uL (4.20-6.10); RDW 21.4 % (11.5-14.5); WBC 7.4 10x3/uL (4.8-10.8)
[2019-08-11 07:43] LABS: CALC OSMOLALITY 281 mosm/kg (275-300); CALCIUM 7.4 mg/dL (8.5-10.1); CARBON DIOXIDE 26.8 mmol/L (21.0-32.0); CHLORIDE - SERUM 110 mmol/L (98-107); CREATININE - SERUM 0.6 mg/dL (0.6-1.3); GLUCOSE 119 mg/dL (74-106); PHOSPHOROUS 2.6 mg/dL (2.5-4.9); POTASSIUM - SERUM 3.4 mmol/L (3.5-5.1); SODIUM 140 mmol/L (136-145); UREA NITROGEN 17 mg/dL (7-18); eGFR NON AFRICAN AMERICAN > 90 mL/min (90-120)
--- NOTE | 2019-08-11 08:18 | NUR ---
HE IS A LITTLE MORE AWAKE THIS MORNING. AT THE BEDSIDE. DE LA ROSA DRANING CLEAR YELLOW URINE. TURNED THIS MORNING.
--- NOTE | 2019-08-11 12:24 | NUR ---
OT NOTE: PT MUCH MORE ALERT AND VERBAL TODAY. PT SITTING UP IN CHAIR AND WAS ABLE TO PULL SELF FORWARD IN CHAIR X 2 TRIALS WITHOUT ASSIST ( PT HAS PREVIOUSLY BEEN TOO WEAK TO PERFORM THIS TASK)..PT TOLERATED SITTING UP IN CHAIR FOR 2 HRS; BACK TO BED WITH MAX ASSIST X 2; PRACTICED ROLLING FROM SIDE TO SIDE WITH MOD ASSIST TODAY (VS MAX ASSIST YESTERDAY) ; A/AROM EXS WHILE IN BED. REPOSITIONED ON HIS L SIDE FOR COMFORT AND TO ALLOW AIRFLOW TO BOTTOM. PTS VERBALIZATION WAS ALSO MUCH STRONGER TODAY. NOT WISPERING LIKE HE USUALLY DOES. GREG HARDING, OTR/L [phone]
--- NOTE | 2019-08-11 12:47 | NUR ---
Nutrition follow-up: chart reviewed Wt: 160# Labs reviewed K slightly low; Cl slightly high Will continue current TPN @ 60 ml/hr at this time RDN following.
--- NOTE | 2019-08-11 20:00 | NUR ---
EYES CLOSED RESTING QUITELY IN BED, SHAKES HEAD NO WHEN IF HAVING ANY PAIN, AT BED SIDESEE SHIFT ASSESSMENT, CALL LIGHT IN REACH
[2019-08-12 01:44] VITALS: BP 108/64
[2019-08-12 06:12] LABS: CALC OSMOLALITY 278 mosm/kg (275-300); CALCIUM 7.3 mg/dL (8.5-10.1); CARBON DIOXIDE 24.6 mmol/L (21.0-32.0); CHLORIDE - SERUM 107 mmol/L (98-107); CREATININE - SERUM 0.5 mg/dL (0.6-1.3); GLUCOSE 119 mg/dL (74-106); MAGNESIUM - SERUM 1.7 mg/dL (1.8-2.4); PHOSPHOROUS 2.9 mg/dL (2.5-4.9); SODIUM 138 mmol/L (136-145); UREA NITROGEN 18 mg/dL (7-18); eGFR NON AFRICAN AMERICAN > 90 mL/min (90-120)
[2019-08-12 06:13] LABS: POTASSIUM - SERUM 4.2 mmol/L (3.5-5.1)
[2019-08-12 06:32] LABS: HEMATOCRIT 30.6 % (42.0-54.0); HEMOGLOBIN 9.8 g/dL (13.5-17.5); MCH 29.4 pg (26.0-34.0); MCV 91.9 fL (80.0-100.0); MEAN PLATELET VOLUME 11.4 fL (7.4-10.4); PLATELET COUNT 235 10x3/uL (130-400); RBC 3.33 10x6/uL (4.20-6.10); WBC 5.5 10x3/uL (4.8-10.8)
[2019-08-12 06:48] VITALS: BP 133/73
[2019-08-12 07:04] LABS: BASOPHILS 1 % (0-2); LYMPHOCYTES 23 % (15-50); MONOCYTES 8 % (2-11); NEUTROPHILS 68 % (40-80); PLATELET ESTIMATE NORMAL
--- NOTE | 2019-08-12 07:42 | NUR ---
ALERT BUT NOT RESPONDING TO QUESTIONS. STATES PATIENT IS QUIET AND RESPONDS SOMETIMES WHEN HE WANTS TO. LUNGS CLEAR BILATERALLY. HEART SOUNDS S1 AND S2 HEARD IN ALL REBOLLAR.BOWEL SOUNDS ACTIVE X 4. RED SPOT NOTED TO BOTTOM. FAMILIA PICC PATENT WITHOUT REDNESS. DENIES NEEDS. AT BEDSIDE DENIES NEEDS. BED LOW. CALL YATES AND PERSONAL ITEMS IN REACH. WILL CONTINUE TO MONITOR.
--- NOTE | 2019-08-12 08:11 | NUR ---
picc line dressing noted to right upper arm with new date change of 08/11/19.
[2019-08-12 09:01] VITALS: BP 137/66
--- NOTE | 2019-08-12 11:51 | NUR ---
RESTING IN BED. AT BEDSIDE. DENIES NEEDS. WILL CONTNUE TO MONITOR.
[2019-08-12 13:12] VITALS: BP 137/71
--- NOTE | 2019-08-12 13:49 | NUR ---
Nutrition follow-up: Reviewed chart TPN @ 60 ml/hr; intralipids 20% 250 ml q 48 hours Labs reviewed; Mg slightly low - recommend replace per protocol Diet has advanced to full liquids and reports she will encourage pt to drink nutritional supplement Will continue current TPN with no changes at this time RDN following.
--- NOTE | 2019-08-12 13:58 | NUR ---
OT NOTE: PT PERFORMED VERY WELL TODAY. BED MOB WITH MAX ASSIST; PT WAS ABLE TO MAINTAIN STATIC SITTING WITHOUT SUPPORT TODAY X 10 MIN. ABLE TO PERFORM UE/LE AROM EXS WITHOUT ASSIST TODAY. REACHING TASKS TO IMPROVE TRUNK STRENGTH; PT ABLE TO BRUSH HIS HAIR AND REACH FOR ENSURE BOTTLE AND BRING TO MOUTH FOR FIRST TIME IN WEEKS. STRONGER VOICE NOTED. ASSISTED WITH RREACHING FOR BED RAILS TO HOLD WHILE BEING CLEANED. GREG HARDING, OTR/L [id number]
[2019-08-12 16:44] VITALS: BP 125/64
--- NOTE | 2019-08-12 17:33 | NUR ---
RESTING IN BED. AT BEDSIDE. DENIES NEEDS. WILL CONTINUE TO MONITOR.
[2019-08-12 20:00] VITALS: BP 132/66
[2019-08-13] VITALS: BP 150/89
--- NOTE | 2019-08-13 04:36 | NUR ---
ASSESSED AT THE BEGINNING OF THE SHIFT. PT WAS MORE RESPOSIVE AND ANSWERED WHEN WAS TALKING TO HIM. AT HS WE TRIED TO GIVE HIM HIS FLOMAX AND BETAPASE BUT WERE NOT SUCCESSFUL IN GETTING THEM DOWN. HAVE TURNED PATIENT EVERY 2 HRS PER POLICY. HAS REMAINED IN ROOM ALL NIGHT SLEEPING IN BEDSIDE CHAIR.
[2019-08-13 06:03] LABS: BASOPHILS 0.2 % (0-2); EOSINOPHILS 0.3 % (0-7); HEMATOCRIT 32.6 % (42.0-54.0); HEMOGLOBIN 10.4 g/dL (13.5-17.5); IMMATURE GRANULOCYTES 0.8 % (0-5); LYMPHOCYTES 31.2 % (15-50); MCH 28.9 pg (26.0-34.0); MCHC 31.9 g/dL (31.0-37.0); MCV 90.6 fL (80.0-100.0); MEAN PLATELET VOLUME 9.3 fL (7.4-10.4); NEUTROPHILS 53.5 % (40-80); PLATELET COUNT 276 10x3/uL (130-400); RDW 21.7 % (11.5-14.5); WBC 6.6 10x3/uL (4.8-10.8)
[2019-08-13 06:23] LABS: CALC OSMOLALITY 278 mosm/kg (275-300); CALCIUM 7.6 mg/dL (8.5-10.1); CARBON DIOXIDE 22.9 mmol/L (21.0-32.0); CHLORIDE - SERUM 106 mmol/L (98-107); CREATININE - SERUM 0.6 mg/dL (0.6-1.3); GLUCOSE 139 mg/dL (74-106); MAGNESIUM - SERUM 1.8 mg/dL (1.8-2.4); PHOSPHOROUS 2.8 mg/dL (2.5-4.9); POTASSIUM - SERUM 4.4 mmol/L (3.5-5.1); SODIUM 137 mmol/L (136-145); UREA NITROGEN 20 mg/dL (7-18); eGFR NON AFRICAN AMERICAN > 90 mL/min (90-120)
--- NOTE | 2019-08-13 07:13 | NUR ---
Nutrition follow-up: Chart reviewed Diet advanced to full liquids with Endure TID; pt with some intake Labs reviewed TPN at 60 ml/hr with lipids q 48 hrs Will continue current TPN regimen. RDN following
[2019-08-13 08:11] VITALS: BP 138/79
[2019-08-13 08:41] VITALS: BP 135/66
--- NOTE | 2019-08-13 09:07 | MORECARE ---
CASE MANAGEMENT DISCHARGE SUMMARY PATIENT: MARVIN HYATT UNIT: [id number] ADM DATE: 07/28/19 AGE: 79 : 40 SEX: M ROOM/BED: D.2229 AUTHOR: CAMACHO,DOC PHYSICIAN: REFERRING PHYSICIAN: RAVINDRA VERMA MD DATE OF SERVICE: 08/13/19 Discharge Plan Patient Name: MARVIN HYATT Facility: [facility]:[place] : 1940 Planned Disposition: Intermediate Facility Anticipated Discharge Date: 07/30/19 Discharge Date: Expected LOS: 2 Initial Reviewer: [id number] Initial Review Date: 07/30/2019 Generated: 08/13/19 10:06 am Comments DCP- Discharge Planning Updated by [id number]: Anais Muñiz on 08/13/19 8:[address] Tonya from [facility] states he is NOT a candidate for LTACH, he is out of acute days. I sent updated clinical to [facility]. CM will continue to follow and assist with discharge planning/needs. DCP- Discharge Planning Updated by [id number]: Anais Muñiz on 08/10/19 3:[address] Spoke with Tonya with [facility] in [place] to see if he could be a candidate for their facility. Tonya states it may be possible even though he has not had a 3 MN stay in ICU. I faxed clinical for her to review per her request. CM will continue to follow and assist with discharge planning/needs. DCP- Discharge Planning Updated by [email or web address]: Anais Muñiz on 08/02/19 12:[address] Updated clinical faxed to [facility]. CM will continue to follow and assist with discharge planning/needs. DCP- Discharge Planning Updated by [id number]: Anais Muñiz on 07/30/19 12:[address] Patient Name: MARVIN HYATT Admission Status: Elective Accout number: [id number] Admission Date: 07-28-2019 : 1940 Admission Diagnosis: Attending: RAVINDRA VERMA Current LOS: 2 Anticipated DC Date: 07-30-2019 Planned Disposition: Intermediate Facility Primary Insurance: MEDICARE A & B Discharge Planning Comments: CM met with patient and his to discuss discharge planning/needs. I had spoken to Jackeline, caseworker protective services in inpatient rehab, prior to speaking with . Jackeline states that he only had 5 more days of therapy to complete, then was going to need a skilled facility and she recommends he go to a skilled facility from acute care. I informed the what the caseworker protective services on rehab suggested and she agrees with plan for skilled therapy. He still has a NG tube in place, so is not ready at this time. signed K[facility] for [facility]. I called [facility] and spoke with Kena and clinical faxed. CM will continue to follow and assist with discharge planning/needs. Buggy Operator: Anais Muñiz DCPIA - Discharge Planning Initial Assessment Updated by [id number]: Anais Muñiz on 07/30/19 1:16 pm * Is the patient Alert and Oriented? Yes * PCP Dr. Enrique * Pharmacy [facility] * Preadmission Environment Acute Inpatient Rehab * Facility Name [facility] * ADLs Total Dependent * Equipment Cane Elevated Toliet Seat Walker * List name and contact numbers for known caregivers / representatives who currently or will assist patient after discharge: Caroline Radford spouse - [phone] * Verbal permission to speak to the caregivers and representatives has been obtained from the patient. Yes * Community resources currently utilized None * Additional services required to return to the preadmission environment? No * Can the patient safely return to the preadmission environment? Yes * Has this patient been hospitalized within the prior 30 days at any hospital? Yes Coverage Notice Reviewer: [id number] - Anais Muñiz Notice Issued Date-Time: 07/30/2019 13:35 Notice Type: Patient Choice Letter Notice Delivered To: Family Member Relationship to Patient: Spouse [employer] Name: [facility] Delivery Method: - Lindsey Days: Prior Verbal Notification: Recipient Understood Notice: Recipient Signature: Med Rec Note Co-signed by Attending: Coverage Notice Comment: Last DP export: 08/10/19 3:38 p Patient Name: MARVIN HYATT Page [phone] at 0907 All edits/amendments must be made on the electronic document DICTATION DATE: 08/13/19905 HAND BOX FOLDER: DYLAN 08/13/19905 RPT#: [id number] DC DATE: STATUS: ADM IN [facility] [address] [place] [address] END OF REPORT
[2019-08-13 13:41] VITALS: BP 128/74
[2019-08-13 16:13] VITALS: BP 116/67
--- NOTE | 2019-08-13 18:45 | NUR ---
PATIENT IN BED WITH IV INTACT. N O COMPLAINTS OR SIGNS OF DISTRESS. LAYING ON BACK WITH FAMILY AT BEDSIDE. STATED HE GOT HIS BATH EARLIER BY SALES CONTRACTOR. CALL LIGHT WITHIN REACH.
[2019-08-13 20:00] VITALS: BP 125/66
[2019-08-14] VITALS: BP 97/68
[2019-08-14 04:00] VITALS: BP 100/42
[2019-08-14 08:11] LABS: CALC OSMOLALITY 279 mosm/kg (275-300); CALCIUM 7.8 mg/dL (8.5-10.1); CHLORIDE - SERUM 106 mmol/L (98-107); CREATININE - SERUM 0.8 mg/dL (0.6-1.3); GLUCOSE 143 mg/dL (74-106); MAGNESIUM - SERUM 1.7 mg/dL (1.8-2.4); PHOSPHOROUS 2.8 mg/dL (2.5-4.9); POTASSIUM - SERUM 4.6 mmol/L (3.5-5.1); SODIUM 137 mmol/L (136-145); UREA NITROGEN 23 mg/dL (7-18); eGFR NON AFRICAN AMERICAN > 90 mL/min (90-120)
[2019-08-14 08:39] LABS: BASOPHILS 0.2 % (0-2); EOSINOPHILS 0.2 % (0-7); HEMATOCRIT 30.6 % (42.0-54.0); IMMATURE GRANULOCYTES 0.5 % (0-5); LYMPHOCYTES 23.9 % (15-50); MCH 29.6 pg (26.0-34.0); MCHC 32.7 g/dL (31.0-37.0); MCV 90.5 fL (80.0-100.0); MEAN PLATELET VOLUME 9.6 fL (7.4-10.4); MONOCYTES 14.4 % (2-11); NEUTROPHILS 60.8 % (40-80); PLATELET COUNT 296 10x3/uL (130-400); RBC 3.38 10x6/uL (4.20-6.10); RDW 21.2 % (11.5-14.5)
[2019-08-14 08:42] LABS: WBC 8.5 10x3/uL (4.8-10.8)
[2019-08-14 09:01] VITALS: BP 121/83
[2019-08-14 13:28] VITALS: BP 104/56
[2019-08-14 17:01] VITALS: BP 109/63
[2019-08-14 22:08] VITALS: BP 128/62
[2019-08-15] VITALS: BP 125/65
[2019-08-15 04:00] VITALS: BP 91/53
[2019-08-15 07:05] LABS: BASOPHILS 0.3 % (0-2); EOSINOPHILS 0.3 % (0-7); HEMATOCRIT 32.8 % (42.0-54.0); HEMOGLOBIN 10.7 g/dL (13.5-17.5); IMMATURE GRANULOCYTES 0.7 % (0-5); LYMPHOCYTES 26.1 % (15-50); MCH 29.1 pg (26.0-34.0); MCHC 32.6 g/dL (31.0-37.0); MCV 89.1 fL (80.0-100.0); MEAN PLATELET VOLUME 9.1 fL (7.4-10.4); MONOCYTES 13.4 % (2-11); NEUTROPHILS 59.2 % (40-80); PLATELET COUNT 276 10x3/uL (130-400); RBC 3.68 10x6/uL (4.20-6.10); RDW 21.1 % (11.5-14.5); WBC 7.5 10x3/uL (4.8-10.8)
[2019-08-15 07:25] LABS: CALC OSMOLALITY 283 mosm/kg (275-300); CALCIUM 8.5 mg/dL (8.5-10.1); CHLORIDE - SERUM 105 mmol/L (98-107); CREATININE - SERUM 0.7 mg/dL (0.6-1.3); GLUCOSE 156 mg/dL (74-106); MAGNESIUM - SERUM 1.9 mg/dL (1.8-2.4); POTASSIUM - SERUM 4.3 mmol/L (3.5-5.1); SODIUM 138 mmol/L (136-145); UREA NITROGEN 27 mg/dL (7-18); eGFR NON AFRICAN AMERICAN > 90 mL/min (90-120)
[2019-08-15 07:28] LABS: PHOSPHOROUS 3.8 mg/dL (2.5-4.9)
--- NOTE | 2019-08-15 08:40 | NUR ---
PT ALERT TO SELF AND SITUATION. BREATH SOUNDS CLEAR BILAT, 4L O2 PER NC. IV TO RIGHT FOREARM, SALINE LOCKED. PICC LINE TO RIGHT UPPER ARM, PATENT, DRESSING CDI. DE LA ROSA IN PLACE, URINE LIGHT YELLOW AND CLEAR. +1 EDEMA TO BLE. SCD'S IN USE. PT REPORTING NO PAIN AT THIS TIME. 1ST STEP OVERLAY MATTRESS. FAMILY AT BEDSIDE. BED LOW, CALL LIGHT IN REACH. NO OTHER NEEDS AT THIS TIME.
[2019-08-15 08:45] VITALS: BP 120/66
[2019-08-15 12:29] VITALS: BP 108/63
--- NOTE | 2019-08-15 14:27 | NUR ---
OT NOTE: (DOS 08/13/19) PT COMPLETED BED MOB TASKS WITH MAX/TOTAL A. PT COMPLETED SUPINE TO SIT WITH MAX/TOTAL A. PT COMPLETED BED TO CHAIR TRANSFER WITH MAX A. PT COMPLETED FACE HYGIENE WITH MAX A . PT COMPLETED ORAL HYGIENE WITH TOTAL A. [phone] THANK YOU, DERREK SIGALA
[2019-08-15 16:30] VITALS: BP 104/57
[2019-08-15 20:00] VITALS: BP 87/57
--- NOTE | 2019-08-15 20:00 | NUR ---
RESTING IN BED EYES CLOSED, AROUSES TO VOICE, AT BEDSIDE, DENIES PAIN OR NEEDS AT THIS TIME, SEE SHIFT ASSESSMENT, CALL LIGHT IN REACH
--- NOTE | 2019-08-15 22:00 | NUR ---
BP LOW 87/51, KAYLA WILSON NOTIFIED ORDERS RECIEVED FOR 500CC FLUID BOLUS OVER 2 HRS
[2019-08-16] VITALS (9 sets, daily range): BP systolic 88–108; BP diastolic 44–76
[2019-08-16 05:46] LABS: BASOPHILS 0.3 % (0-2); EOSINOPHILS 0.5 % (0-7); HEMATOCRIT 27.4 % (42.0-54.0); HEMOGLOBIN 8.8 g/dL (13.5-17.5); IMMATURE GRANULOCYTES 0.8 % (0-5); LYMPHOCYTES 33.4 % (15-50); MCH 28.7 pg (26.0-34.0); MCHC 32.1 g/dL (31.0-37.0); MCV 89.3 fL (80.0-100.0); MEAN PLATELET VOLUME 9.4 fL (7.4-10.4); MONOCYTES 14.2 % (2-11); NEUTROPHILS 50.8 % (40-80); PLATELET COUNT 241 10x3/uL (130-400); RBC 3.07 10x6/uL (4.20-6.10); WBC 6.4 10x3/uL (4.8-10.8)
[2019-08-16 06:13] LABS: CALC OSMOLALITY 278 mosm/kg (275-300); CALCIUM 7.7 mg/dL (8.5-10.1); CARBON DIOXIDE 28.7 mmol/L (21.0-32.0); CHLORIDE - SERUM 103 mmol/L (98-107); CREATININE - SERUM 0.7 mg/dL (0.6-1.3); GLUCOSE 133 mg/dL (74-106); MAGNESIUM - SERUM 1.5 mg/dL (1.8-2.4); SODIUM 136 mmol/L (136-145); UREA NITROGEN 27 mg/dL (7-18); eGFR NON AFRICAN AMERICAN > 90 mL/min (90-120)
[2019-08-16 06:15] LABS: POTASSIUM - SERUM 3.5 mmol/L (3.5-5.1)
--- NOTE | 2019-08-16 12:18 | NUR ---
Nutrition follow-up: TPN now at 40 ml/hr to encourage increased po intake intralipids q 48 hours Labs reviewed Diet: full liquids with po intake ~25% of some meals Will continue to encourage increased po intake. RDN following.
--- NOTE | 2019-08-16 13:09 | NUR ---
OT NOTE: PT ALERT BUT VERY SLOW TO RESPOND TO COMMANDS TODAY. ALLOW PT APPROX 5 MIN TO ATTEMPT TO BRING FEET TO EOB..PT ABLE TO MAKE SLIGHT MOVEMENT BUT ENDED UP REQUIRING MAX ASSIST FOR SUPINE TO SIT; ABLE TO MAINTAIN STATIC SITTING BALANCE ON EOB WITHOUT ASSIST; PHY THER TRANSFERRED PT TO CHAIR WITH MAX/TOTAL ASSIST. WHILE PT WAS IN CHAIR, PRACTICED TRUNK STRENGHTENING ACT BY HAVING PT REACH/LEAN FORWARD. ALSO PERFORMED 10 REPS OF SHOULDER FLEX AND KNEE FLEX. GREG HARDING, OTR/L [phone]
--- NOTE | 2019-08-16 13:59 | MORECARE ---
CASE MANAGEMENT DISCHARGE SUMMARY PATIENT: MARVIN HYATT UNIT: [id number] ADM DATE: 07/28/19 AGE: 79 : 40 SEX: M ROOM/BED: D.2229 AUTHOR: CAMACHO,DOC PHYSICIAN: REFERRING PHYSICIAN: RAVINDRA VERMA MD DATE OF SERVICE: 08/16/19 Discharge Plan Patient Name: MARVIN HYATT Facility: [facility]:[place] : 1940 Planned Disposition: Prison Facility Anticipated Discharge Date: 07/30/19 Discharge Date: Expected LOS: 2 Initial Reviewer: [email or web address] Initial Review Date: 07/30/2019 Generated: 08/16/19 2:58 pm Comments DCP- Discharge Planning Updated by [email or web address]: Leslie Hsieh on 08/16/19 12:[address] RECEIVED CALL BACK FROM DARIO WITH [facility]. WILL FORWARD CLINICAL FOR REVIEW. SHE WILL ADVISE AFTER REVIEW. VERBAL UPDATE ALSO GIVEN. DCP- Discharge Planning Updated by [email or web address]: Leslie Hsieh on 08/16/19 12:[address] UPDATED CLINICAL FAXED FOR REVIEW BY DARIO WITH [facility]. DCP- Discharge Planning Updated by [id number]: Anais Muñiz on 08/13/19 8:[address] Tonya from [facility] states he is NOT a candidate for LTACH, he is out of acute days. I sent updated clinical to [facility]. CM will continue to follow and assist with discharge planning/needs. DCP- Discharge Planning Updated by [id number]: Anais Muñiz on 08/10/19 3:[address] Spoke with Tonya with [facility] in [place] to see if he could be a candidate for their facility. Tonya states it may be possible even though he has not had a 3 MN stay in ICU. I faxed clinical for her to review per her request. CM will continue to follow and assist with discharge planning/needs. DCP- Discharge Planning Updated by [id number]: Anais Muñiz on 08/02/19 12:[address] Updated clinical faxed to [facility]. CM will continue to follow and assist with discharge planning/needs. DCP- Discharge Planning Updated by [id number]: Anais Muñiz on 07/30/19 12:[address] Patient Name: MARVIN HYATT Admission Status: Elective Accout number: [id number] Admission Date: 07-28-2019 : 1940 Admission Diagnosis: Attending: RAVINDRA VERMA Current LOS: 2 Anticipated DC Date: 07-30-2019 Planned Disposition: Prison Facility Primary Insurance: MEDICARE A & B Discharge Planning Comments: CM met with patient and his to discuss discharge planning/needs. I had spoken to Jackeline, manager case management in inpatient rehab, prior to speaking with . Jackeline states that he only had 5 more days of therapy to complete, then was going to need a skilled facility and she recommends he go to a skilled facility from acute care. I informed the what the manager case management on rehab suggested and she agrees with plan for skilled therapy. He still has a NG tube in place, so is not ready at this time. signed [facility] for [facility]. I called [facility] and spoke with Dario and clinical faxed. CM will continue to follow and assist with discharge planning/needs. Pearl Glue Drier: Anais Muñiz DCPIA - Discharge Planning Initial Assessment Updated by [id number]: Anais Muñiz on 07/30/19 1:16 pm * Is the patient Alert and Oriented? Yes * PCP Dr. Enrique * Pharmacy [facility] * Preadmission Environment Acute Inpatient Rehab * Facility Name [facility] * ADLs Total Dependent * Equipment Cane Elevated Toliet Seat Walker * List name and contact numbers for known caregivers / representatives who currently or will assist patient after discharge: Caroline - spouse - [phone] * Verbal permission to speak to the caregivers and representatives has been obtained from the patient. Yes * Community resources currently utilized None * Additional services required to return to the preadmission environment? No * Can the patient safely return to the preadmission environment? Yes * Has this patient been hospitalized within the prior 30 days at any hospital? Yes Coverage Notice Reviewer: [id number] - Anais Muñiz Notice Issued Date-Time: 07/30/2019 13:35 Notice Type: Patient Choice Letter Notice Delivered To: Family Member Relationship to Patient: Spouse [employer] Min[employer] Name: Chilo Sagastume Delivery Method: - Lindsey Days: Prior Verbal Notification: Recipient Understood Notice: Recipient Signature: Med Rec Note Co-signed by Attending: Coverage Notice Comment: Last DP export: 08/13/19 8:07 a Patient Name: MARVIN HYATT Page [phone] at 1359 All edits/amendments must be made on the electronic document DICTATION DATE: 08/16/19 1358 CARDROOM ATTENDANT: DYLAN 08/16/19 1358 RPT#: [id number] DC DATE: STATUS: ADM IN [facility] [address] [place] [address] END OF REPORT
[2019-08-17] VITALS: BP 98/62
[2019-08-17 04:00] VITALS: BP 97/61
[2019-08-17 04:28] LABS: BASOPHILS 0.2 % (0-2); EOSINOPHILS 0.4 % (0-7); HEMATOCRIT 27.6 % (42.0-54.0); HEMOGLOBIN 8.8 g/dL (13.5-17.5); IMMATURE GRANULOCYTES 0.9 % (0-5); LYMPHOCYTES 30.2 % (15-50); MCH 28.6 pg (26.0-34.0); MCHC 31.9 g/dL (31.0-37.0); MCV 89.6 fL (80.0-100.0); MEAN PLATELET VOLUME 9.6 fL (7.4-10.4); MONOCYTES 14.7 % (2-11); NEUTROPHILS 53.6 % (40-80); PLATELET COUNT 239 10x3/uL (130-400); RBC 3.08 10x6/uL (4.20-6.10); RDW 20.8 % (11.5-14.5); WBC 5.6 10x3/uL (4.8-10.8)
[2019-08-17 04:51] LABS: CALC OSMOLALITY 281 mosm/kg (275-300); CALCIUM 7.9 mg/dL (8.5-10.1); CHLORIDE - SERUM 103 mmol/L (98-107); CREATININE - SERUM 0.7 mg/dL (0.6-1.3); GLUCOSE 134 mg/dL (74-106); MAGNESIUM - SERUM 1.7 mg/dL (1.8-2.4); POTASSIUM - SERUM 3.5 mmol/L (3.5-5.1); SODIUM 138 mmol/L (136-145); UREA NITROGEN 24 mg/dL (7-18); eGFR NON AFRICAN AMERICAN > 90 mL/min (90-120)
[2019-08-17 04:56] LABS: PHOSPHOROUS 2.9 mg/dL (2.5-4.9)
[2019-08-17 08:41] VITALS: BP 125/53
--- NOTE | 2019-08-17 12:53 | NUR ---
OT NOTE: ASSISTED PHYS THERAPY WITH TRANSFERRING PT BACK TO BED AND REPOSITIONING. REPORTED THAT SHE H AD BEEN DOING SOME UE ACT WITH PT WHILE UP IN CHAIR. ENCOURAGED TO CONTINUE AND DEMONSTATED A FEW MORE. PT WAS OOB FOR APPROX 2 HRS GREG HARDING, OTR/L [phone]
[2019-08-17 13:03] VITALS: BP 98/43
[2019-08-17 18:02] VITALS: BP 125/59
--- NOTE | 2019-08-17 18:32 | NUR ---
OT NOTE: PT AT BEDSIDE. PT COMPLETED ORAL HYGIENE WITH AYAN Contreras. PT COMPLETED FACE WASH WITH SET UP. PT COMPLETED BUE AARHERMANN EXS. [phone] THANK YOU,DERREK SIGALA
--- NOTE | 2019-08-17 19:33 | NUR ---
CHANGED OUT THE DE LA ROSA TODAY. HE SET IN THE CHAIR, FEEDING HIMSLEF MORE. TURNED EVERY FEW HOURS TODAY AND APPLIED ESTELA TO HIS BOTTOM.
[2019-08-18 04:00] VITALS: BP 109/64
[2019-08-18 06:34] LABS: BASOPHILS 0.1 % (0-2); EOSINOPHILS 0.1 % (0-7); HEMATOCRIT 27.2 % (42.0-54.0); HEMOGLOBIN 8.9 g/dL (13.5-17.5); IMMATURE GRANULOCYTES 0.9 % (0-5); LYMPHOCYTES 27.7 % (15-50); MCH 29.6 pg (26.0-34.0); MCHC 32.7 g/dL (31.0-37.0); MCV 90.4 fL (80.0-100.0); MEAN PLATELET VOLUME 10.2 fL (7.4-10.4); MONOCYTES 16.8 % (2-11); NEUTROPHILS 54.4 % (40-80); PLATELET COUNT 232 10x3/uL (130-400); RBC 3.01 10x6/uL (4.20-6.10); RDW 20.7 % (11.5-14.5)
[2019-08-18 06:49] LABS: CALC OSMOLALITY 279 mosm/kg (275-300); CALCIUM 8.1 mg/dL (8.5-10.1); CARBON DIOXIDE 30.1 mmol/L (21.0-32.0); CHLORIDE - SERUM 105 mmol/L (98-107); CREATININE - SERUM 0.7 mg/dL (0.6-1.3); GLUCOSE 109 mg/dL (74-106); MAGNESIUM - SERUM 1.7 mg/dL (1.8-2.4); PHOSPHOROUS 2.8 mg/dL (2.5-4.9); POTASSIUM - SERUM 4.5 mmol/L (3.5-5.1); SODIUM 138 mmol/L (136-145); UREA NITROGEN 22 mg/dL (7-18); eGFR NON AFRICAN AMERICAN > 90 mL/min (90-120)
[2019-08-18 09:18] VITALS: BP 124/50
--- NOTE | 2019-08-18 10:26 | MORECARE ---
CASE MANAGEMENT DISCHARGE SUMMARY PATIENT: MARVIN HYATT UNIT: [id number] ADM DATE: 07/28/19 AGE: 79 : 40 SEX: M ROOM/BED: D.2229 AUTHOR: CAMACHO,DOC PHYSICIAN: REFERRING PHYSICIAN: RAVINDRA VERMA MD DATE OF SERVICE: 08/18/19 Discharge Plan Patient Name: MARVIN HYATT Facility: [facility]:[place] : 1940 Planned Disposition: Fdc Facility Anticipated Discharge Date: 07/30/19 Discharge Date: Expected LOS: 2 Initial Reviewer: [email or web address] Initial Review Date: 07/30/2019 Generated: 08/18/19 11:26 am Comments DCP- Discharge Planning Updated by [id number]: Anais Muñiz on 08/18/19 9:[address] Updated clinical faxed to [facility]. CM will continue to follow and assist with discharge planning/needs. DCP- Discharge Planning Updated by [id number]: Leslie Hsieh on 08/16/19 12:[address] RECEIVED CALL BACK FROM DARIO WITH [facility]. WILL FORWARD CLINICAL FOR REVIEW. SHE WILL ADVISE AFTER REVIEW. VERBAL UPDATE ALSO GIVEN. DCP- Discharge Planning Updated by [id number]: Leslie Hsieh on 08/16/19 12:[address] UPDATED CLINICAL FAXED FOR REVIEW BY DARIO WITH [facility]. DCP- Discharge Planning Updated by [id number]: Anais Muñiz on 08/13/19 8:[address] Tonya from [facility] states he is NOT a candidate for LTACH, he is out of acute days. I sent updated clinical to [facility]. CM will continue to follow and assist with discharge planning/needs. DCP- Discharge Planning Updated by [email or web address]: Anais Muñiz on 08/10/19 3:[address] Spoke with Tonya with [facility] in [place] to see if he could be a candidate for their facility. Tonya states it may be possible even though he has not had a 3 MN stay in ICU. I faxed clinical for her to review per her request. CM will continue to follow and assist with discharge planning/needs. DCP- Discharge Planning Updated by [id number]: Anais Antonino on 08/02/19 12:[address] Updated clinical faxed to [facility]. CM will continue to follow and assist with discharge planning/needs. DCP- Discharge Planning Updated by [id number]: Anais Antonino on 07/30/19 12:[address] Patient Name: MARVIN HYATT Admission Status: Elective Accout number: [id number] Admission Date: 07-28-2019 : 1940 Admission Diagnosis: Attending: RAVINDRA VERMA Current LOS: 2 Anticipated DC Date: 07-30-2019 Planned Disposition: Fdc Facility Primary Insurance: MEDICARE A & B Discharge Planning Comments: CM met with patient and his to discuss discharge planning/needs. I had spoken to Jackeline, case finisher in inpatient rehab, prior to speaking with . Jackeline states that he only had 5 more days of therapy to complete, then was going to need a skilled facility and she recommends he go to a skilled facility from acute care. I informed the what the case finisher on rehab suggested and she agrees with plan for skilled therapy. He still has a NG tube in place, so is not ready at this time. signed KATI for [facility]. I called [facility] and spoke with Dario and clinical faxed. CM will continue to follow and assist with discharge planning/needs. Forest Ranger: Anais Muñiz DCPIA - Discharge Planning Initial Assessment Updated by [id number]: Anais Muñiz on 07/30/19 1:16 pm * Is the patient Alert and Oriented? Yes * PCP Dr. Enrique * Pharmacy [facility] * Preadmission Environment Acute Inpatient Rehab * Facility Name [facility] * ADLs Total Dependent * Equipment Cane Elevated Toliet Seat Walker * List name and contact numbers for known caregivers / representatives who currently or will assist patient after discharge: Caroline - spouse - [phone] * Verbal permission to speak to the caregivers and representatives has been obtained from the patient. Yes * Community resources currently utilized None * Additional services required to return to the preadmission environment? No * Can the patient safely return to the preadmission environment? Yes * Has this patient been hospitalized within the prior 30 days at any hospital? Yes Coverage Notice Reviewer: [id number] - Anais Muñiz Notice Issued Date-Time: 07/30/2019 13:35 Notice Type: Patient Choice Letter Notice Delivered To: Family Member Relationship to Patient: Spouse Business Info Consultant Name: [facility] Sagastume Delivery Method: - Lindsey Days: Prior Verbal Notification: Recipient Understood Notice: Recipient Signature: Med Rec Note Co-signed by Attending: Coverage Notice Comment: Last DP export: 08/16/19 12:59 pm Patient Name: MARVIN HYATT Page [phone] at 1026 All edits/amendments must be made on the electronic document DICTATION DATE: 08/18/19 1026 METER MAINTENANCE PERSON: DYLAN 08/18/19 1026 RPT#: [id number] DC DATE: STATUS: ADM IN [facility] [address] [place] [address] END OF REPORT
--- NOTE | 2019-08-18 11:57 | NUR ---
WOUND VAC THERAPY HAS BEEN D/C'D FOR APPROX 1 WEEK. THE MIDLINE LOWER ABDOMINAL WOUND IS HEALING WELL. THERE IS A THIN SCAB COVERING THE WOUND BED AND NO DRAINAGE OR ODOR IS NOTED. NO REDNESS, EDEMA OR TENDERNESS. THE WOUND IS BEING LEFT OPEN TO AIR. WOUND CARE WILL CONTINUE MONITORING.
--- NOTE | 2019-08-18 12:11 | NUR ---
Rehab Prescreening Consult recieved and the chart has been reviewed. He is known to rehab as he has been here recently and readmitted to the acute floor. Called and spoke to Odalis in the business office. He only has 4 acute Medicare days left at this time. Called and spoke to Anais oakley RN CM regarding this. Jackeline Tinsley RN Clinical Liaison, Rehab
[2019-08-18 13:06] VITALS: BP 122/69
--- NOTE | 2019-08-18 15:33 | NUR ---
OT NOTE: ASSISTED PT TO EOB WITH PHY THERAPY; BED MOB WITH MOD/MAX ASSIST; STATIC SITTING ON EOB WITH SBA. PT ABLE TO PERFORM INCREASED NUMBER OF REPS WITH EXS WHILE ON EOB. PT ALSO IMPROVING WITH AROM.. EOB SITTING X APPROX 15 MIN..PERFORMED COGNITIVE EXS..PT ORIENTED X 1 WITHOUT CUES..ORIENTED TO TIME AND PLACE WITH ADDITIONAL CUES. ASSISTED PT ONTO BEDPAN.. CONT WITH EXS AND EOB SITTING TO IMPROVE UE STRENGTH AND TRUNK CONTROL. GREG HARDING, OTR [id number]
[2019-08-18 16:56] VITALS: BP 142/67
--- NOTE | 2019-08-18 17:38 | NUR ---
I have reviewed this patient and I concur with the Shift Assessment completed by the Licensed Practical Nurse today this shift.
--- NOTE | 2019-08-18 17:58 | NUR ---
OT NOTE: PT COMPLETED ORAL HYGIENE TASKS WITH AYAN Contreras. PT COMPLETED HAIR GROOMING/BRUSHING WITH SET UP AND VERBAL ENCOURAGEMENT. PT COMPLETED FACE WASH WITH SETUP. PT COMPLETED BUE GRASP AND RELEASE ACTIVITIES. PT COMPLETED BUE AAROM EXS. [phone] THANK YOU,DERREK SIGALA
[2019-08-18 20:00] VITALS: BP 136/70
[2019-08-19] VITALS: BP 95/56
[2019-08-19 04:00] VITALS: BP 110/56
[2019-08-19 05:18] LABS: BASOPHILS 0 % (0-2); EOSINOPHILS 0.3 % (0-7); HEMATOCRIT 26.6 % (42.0-54.0); HEMOGLOBIN 8.4 g/dL (13.5-17.5); IMMATURE GRANULOCYTES 1.4 % (0-5); LYMPHOCYTES 28.2 % (15-50); MCH 28.6 pg (26.0-34.0); MCHC 31.6 g/dL (31.0-37.0); MCV 90.5 fL (80.0-100.0); MEAN PLATELET VOLUME 9.7 fL (7.4-10.4); MONOCYTES 16.3 % (2-11); NEUTROPHILS 53.8 % (40-80); PLATELET COUNT 233 10x3/uL (130-400); RBC 2.94 10x6/uL (4.20-6.10); RDW 20.5 % (11.5-14.5); WBC 7.2 10x3/uL (4.8-10.8)
[2019-08-19 05:37] LABS: CALC OSMOLALITY 273 mosm/kg (275-300); CARBON DIOXIDE 27.2 mmol/L (21.0-32.0); CHLORIDE - SERUM 103 mmol/L (98-107); CREATININE - SERUM 0.8 mg/dL (0.6-1.3); GLUCOSE 131 mg/dL (74-106); MAGNESIUM - SERUM 1.8 mg/dL (1.8-2.4); PHOSPHOROUS 3.3 mg/dL (2.5-4.9); SODIUM 134 mmol/L (136-145); UREA NITROGEN 25 mg/dL (7-18); eGFR NON AFRICAN AMERICAN > 90 mL/min (90-120)
[2019-08-19 05:40] LABS: POTASSIUM - SERUM 5.2 mmol/L (3.5-5.1)
--- NOTE | 2019-08-19 07:38 | NUR ---
PT RESTING IN BED WITH HOB ELEVATED. FAMILY AT BEDSIDE. RESP EVEN AND UNLABORED. O2 @ 4L NC IN PLACE. PT DENIES PAIN AT THIS TIME. PICC LINE TO RIGHT UPPER ARM INTACT WITH TPN @ 40ML/HR INFUSING VIA PUMP. SITE WITHOUT REDNESS OR EDEMA. F/C PATENT TO GRAVITY AND DRAINING. PT AND FAMILY DENIES FURTHER NEEDS AT THIS TIME. CL WITHIN REACH. ENCOURAGED TO CALL WITH NEEDS. CONTINUE POC
[2019-08-19 09:03] VITALS: BP 94/53
--- NOTE | 2019-08-19 09:37 | NUR ---
NUTRITION F/U CHART/LABS REVIEWED, PT VISIT. K+ SLIGHTLY ELEVATED. WILL CHECK LABS IN AM AND ADJUST TPN IF NEEDED. RD FOLLOWING
--- NOTE | 2019-08-19 09:53 | NUR ---
PT RESTING IN BED WITH HOB ELEVATED 35 DEGREES. RESP EVEN AND UNLABORED. DENIES PAIN, OR FURTER NEEDS AT THIS TIME. FAMILY AT BEDSIDE. CL WITHIN REACH. ENCOURAGED TO CALL WITH NEEDS.
--- NOTE | 2019-08-19 11:45 | NUR ---
PT SITTING UP IN CHAIR AT BEDSIDE WITH FAMILY PRESENT. NO ACUTE DISTRESS NOTED. EDUCATED PT AND FAMILY REGARDING DECREASING RATE ON TPN. PT AND FAMILY VOICES UNDERSTANDING. STRESSED IMPORTANCE OF INCREASING ORAL INTAKE OF FLUIDS AND FOOD. BOTH VOICE UNDERSTANDING. TPN RATE CHANGED TO 20ML/HR.
[2019-08-19 12:10] VITALS: BP 98/54
[2019-08-19 17:24] VITALS: BP 92/48
--- NOTE | 2019-08-19 17:36 | NUR ---
OT NOTE: PT REQUIRED MAX/TOTAL A FOR SUPINE TO SIT. PT REQUIRED TOTAL A WITH UB MANAGMENT. PT REQUIRED MAX/TOTAL A WITH LE MANAGEMENT. PT EXHIBITED SOME LE AROM TO BRING LE OFF SIDE OF BED. PT IS ABLE TO COMPLETED STATIC EOB SITTING BALANCE WITH SBA/CGA. PT TOLERATED WT BEARING IN LE FOR VERY BRIEF PERIOD WHICH IS AN IMPROVEMENT. PT REQUIRED TOTAL A WITH TRANSFER TO CHAIR. PT EXHIBITED AROM IN BUE . HOWEVER, PT REQUIRED AAROM FOR TO ACHIEVE FUNCTIONAL ROM . PT COMPLETED ORAL HYGIENE WITH MAX A. PT REQUIRED VERBAL ENCOURAGMENT DURING SESSION. PT EXHIBITED AN INCREASED POTENTIAL THIS SESSION. [phone] THANK YOU,DERREK SIGALA THANK YOU,DERREK SIGALA
[2019-08-19 20:00] VITALS: BP 94/54
--- NOTE | 2019-08-19 20:00 | NUR ---
ALERT SITTING UP IN BED DENIES PAIN OR NEEDS AT THIS TIME, AT BEDSIDE, SEE SHIFT ASSESSMENT, CALL LIGHT IN REACH
[2019-08-20] VITALS: BP 105/60
[2019-08-20 04:00] VITALS: BP 102/81
[2019-08-20 06:59] LABS: CALC OSMOLALITY 274 mosm/kg (275-300); CALCIUM 8.5 mg/dL (8.5-10.1); CARBON DIOXIDE 25.9 mmol/L (21.0-32.0); CHLORIDE - SERUM 106 mmol/L (98-107); CREATININE - SERUM 0.7 mg/dL (0.6-1.3); GLUCOSE 86 mg/dL (74-106); MAGNESIUM - SERUM 1.7 mg/dL (1.8-2.4); PHOSPHOROUS 3.6 mg/dL (2.5-4.9); POTASSIUM - SERUM 4.7 mmol/L (3.5-5.1); SODIUM 136 mmol/L (136-145); UREA NITROGEN 23 mg/dL (7-18); eGFR NON AFRICAN AMERICAN > 90 mL/min (90-120)
[2019-08-20 08:44] VITALS: BP 127/60
--- NOTE | 2019-08-20 12:46 | NUR ---
I have reviewed this patient and I concur with the Shift Assessment completed by the Licensed Practical Nurse today this shift.
--- NOTE | 2019-08-20 13:36 | NUR ---
Nutrition follow-up: TPN, lipids discontinued Diet: Full liquids Labs reviewed Recommend advancing diet to regular as tolerated. RDN following.
[2019-08-20 14:24] VITALS: BP 128/62
[2019-08-20 16:23] LABS: BASOPHILS 0.3 % (0-2); EOSINOPHILS 0.3 % (0-7); HEMATOCRIT 27.2 % (42.0-54.0); HEMOGLOBIN 8.4 g/dL (13.5-17.5); IMMATURE GRANULOCYTES 1.7 % (0-5); LYMPHOCYTES 29.5 % (15-50); MCHC 30.9 g/dL (31.0-37.0); MEAN PLATELET VOLUME 10.1 fL (7.4-10.4); MONOCYTES 18.5 % (2-11); NEUTROPHILS 49.7 % (40-80); PLATELET COUNT 237 10x3/uL (130-400); RDW 20.8 % (11.5-14.5); WBC 6.9 10x3/uL (4.8-10.8)
[2019-08-20 16:28] VITALS: BP 126/58
[2019-08-20 16:32] LABS: MCV 93.8 fL (80.0-100.0)
--- NOTE | 2019-08-20 17:29 | NUR ---
OT NOTE: PT COMPLETED BED MOBILITY TASKS WITH MAX/TOTAL A. PT COMPLETED ORAL HYGIENE WITH MAX A AT EOB. PT COMPLETED HAIR GROOMING AT EOB WITH MOD A. [phone] THANK YOU,DERREK SIGALA
[2019-08-20 20:00] VITALS: BP 99/56
--- NOTE | 2019-08-20 20:00 | NUR ---
ALERT RESTING IN BED AT BEDSIDE, DENIES PAIN OR NEEDS AT THSI TIME, SEE SHIFT ASSESSMENT CALL LIGHT IN REACH
[2019-08-21] VITALS: BP 102/58
[2019-08-21 04:00] VITALS: BP 100/56
[2019-08-21 06:28] LABS: BASOPHILS 0.1 % (0-2); EOSINOPHILS 0.3 % (0-7); HEMATOCRIT 26.5 % (42.0-54.0); HEMOGLOBIN 8.5 g/dL (13.5-17.5); IMMATURE GRANULOCYTES 2.7 % (0-5); LYMPHOCYTES 28.7 % (15-50); MCH 29.3 pg (26.0-34.0); MCHC 32.1 g/dL (31.0-37.0); MEAN PLATELET VOLUME 9.8 fL (7.4-10.4); MONOCYTES 15.2 % (2-11); PLATELET COUNT 265 10x3/uL (130-400); RDW 20.5 % (11.5-14.5); WBC 6.7 10x3/uL (4.8-10.8)
[2019-08-21 06:42] LABS: MCV 91.4 fL (80.0-100.0)
[2019-08-21 06:50] LABS: ALBUMIN 1.4 g/dL (3.4-5.0); ALKALINE PHOSPHATASE 91 U/L (30-120); ALT (SGPT) 27 U/L (10-68); BILIRUBIN - TOTAL 0.32 mg/dL (0.2-1.3); CALC OSMOLALITY 271 mosm/kg (275-300); CALCIUM 8.1 mg/dL (8.5-10.1); CARBON DIOXIDE 23.3 mmol/L (21.0-32.0); CHLORIDE - SERUM 104 mmol/L (98-107); CREATININE - SERUM 0.8 mg/dL (0.6-1.3); GLUCOSE 109 mg/dL (74-106); POTASSIUM - SERUM 4.8 mmol/L (3.5-5.1); PROTEIN - SERUM 5.5 g/dL (6.4-8.2); SODIUM 134 mmol/L (136-145); UREA NITROGEN 22 mg/dL (7-18); eGFR NON AFRICAN AMERICAN > 90 mL/min (90-120)
[2019-08-21 07:58] VITALS: BP 113/68
--- NOTE | 2019-08-21 10:27 | NUR ---
PT SITTING UP EATING BREAKFAST, PT BREAKFAST WAS ADVANCED TO REGULAR AND PT SPOUSE CONCERNED THAT IT MAY HAVE BEEN TOO BIG OF A JUMP DUE TO PT HAS NOT HAD REG FOOD IN A WHILE, SHE WAS HOPING MORE OF SOFT FOODS THAN A REGULAR DIET, ASKED SPOUSE TO WRITE IN WHAT SHE WOULD LIKE FOR PT TO HAVE AT LUNCH AND DINNER, I.E. MASHED POTATOES, MAC AND CHEESE, CHOPPED STEAK, SOFT FOODS THAT PT WILL BE ABLE TO EAT. PATIENT SPOUSE VERBALLY AGREED TO THIS. PT WAS ABLE TO TAKE ALL MEDICATIONS THIS MORNING WITH NO PROBLEMS. CL IN REACH CONTINUE WITH PLAN OF CARE
[2019-08-21 12:24] VITALS: BP 118/62
--- NOTE | 2019-08-21 12:54 | NUR ---
I have reviewed this patient and I concur with the Shift Assessment completed by the Licensed Practical Nurse today this shift.
[2019-08-21 16:28] VITALS: BP 113/49
[2019-08-21 19:43] VITALS: BP 116/69
--- NOTE | 2019-08-21 20:30 | NUR ---
RESTING QUEITLY WITH NO DISTRESS NOTED. O2 @ 2L PER NC ON. PICC LINE INTACT TO FAMILIA WITHOUT REDNESS OR EDEMA NOTED. DE LA ROSA PATENT AND DRAINING CLEAR YELLOW URINE.TURNED AND POSITIONED FOR COMFORT. AT BEDSIDE.
[2019-08-22] VITALS: BP 120/67
--- NOTE | 2019-08-22 03:30 | NUR ---
I have reviewed this patient and I concur with the Shift Assessment completed by the Licensed Practical Nurse today this shift.
[2019-08-22 04:00] VITALS: BP 104/61
[2019-08-22 06:26] LABS: BASOPHILS 0.1 % (0-2); EOSINOPHILS 0.1 % (0-7); HEMATOCRIT 26.5 % (42.0-54.0); HEMOGLOBIN 8.6 g/dL (13.5-17.5); IMMATURE GRANULOCYTES 2.4 % (0-5); LYMPHOCYTES 24.2 % (15-50); MCH 29.4 pg (26.0-34.0); MCHC 32.5 g/dL (31.0-37.0); MCV 90.4 fL (80.0-100.0); MEAN PLATELET VOLUME 9.9 fL (7.4-10.4); NEUTROPHILS 59.2 % (40-80); PLATELET COUNT 282 10x3/uL (130-400); RBC 2.93 10x6/uL (4.20-6.10); RDW 20.5 % (11.5-14.5)
[2019-08-22 06:27] LABS: WBC 8.5 10x3/uL (4.8-10.8)
[2019-08-22 06:39] LABS: ALBUMIN 1.5 g/dL (3.4-5.0); ALKALINE PHOSPHATASE 85 U/L (30-120); ALT (SGPT) 24 U/L (10-68); BILIRUBIN - TOTAL 0.35 mg/dL (0.2-1.3); CALC OSMOLALITY 268 mosm/kg (275-300); CALCIUM 8.3 mg/dL (8.5-10.1); CHLORIDE - SERUM 103 mmol/L (98-107); CREATININE - SERUM 0.8 mg/dL (0.6-1.3); GLUCOSE 97 mg/dL (74-106); MAGNESIUM - SERUM 1.4 mg/dL (1.8-2.4); POTASSIUM - SERUM 4.8 mmol/L (3.5-5.1); PROTEIN - SERUM 5.7 g/dL (6.4-8.2); SODIUM 133 mmol/L (136-145); UREA NITROGEN 21 mg/dL (7-18); eGFR NON AFRICAN AMERICAN > 90 mL/min (90-120)
[2019-08-22 09:43] VITALS: BP 113/49
[2019-08-22 12:53] VITALS: BP 129/61
--- NOTE | 2019-08-22 14:50 | NUR ---
I have reviewed this patient and I concur with the Shift Assessment completed by the Licensed Practical Nurse today this shift.
--- NOTE | 2019-08-22 14:50 | NUR ---
I have reviewed this patient and I concur with the Shift Assessment completed by the Licensed Practical Nurse today this shift.
--- NOTE | 2019-08-22 17:48 | NUR ---
PT MAGNESIUM WAS LOW THIS MORNING 1.4 FOLLOW PROTOCOL. PT AWAKE AND EATING BREAKFAST, SPOUSE AT BEDSIDE, CONTINUE WITH PLAN OF CARE
[2019-08-22 17:53] VITALS: BP 111/56
[2019-08-22 20:00] VITALS: BP 98/61
--- NOTE | 2019-08-22 21:00 | NUR ---
AWAKE,ALERT.NO COMPLAITNS VOICED. RESP UNLABORED. O2 @ 2L PER NC ON. NO DISTRESS NOTED. PICC LINE INTACT TO FAMILIA WIHTOUT REDNESS OR EDEMA NOTED. TURNED AND POSITIONED FOR COMFORT. CL IN REACH. AT BEDSIDE.
[2019-08-23] VITALS: BP 102/64
[2019-08-23 04:00] VITALS: BP 114/48
--- NOTE | 2019-08-23 04:02 | NUR ---
I have reviewed this patient and I concur with the Shift Assessment completed by the Licensed Practical Nurse today this shift.
[2019-08-23 06:33] LABS: BASOPHILS 0.2 % (0-2); EOSINOPHILS 0.3 % (0-7); HEMATOCRIT 27.2 % (42.0-54.0); HEMOGLOBIN 8.8 g/dL (13.5-17.5); IMMATURE GRANULOCYTES 2.4 % (0-5); LYMPHOCYTES 25.2 % (15-50); MCHC 32.4 g/dL (31.0-37.0); MCV 89.8 fL (80.0-100.0); MEAN PLATELET VOLUME 10.3 fL (7.4-10.4); MONOCYTES 13.5 % (2-11); NEUTROPHILS 58.4 % (40-80); PLATELET COUNT 309 10x3/uL (130-400); RBC 3.03 10x6/uL (4.20-6.10); RDW 19.9 % (11.5-14.5)
[2019-08-23 06:59] LABS: ALBUMIN 1.6 g/dL (3.4-5.0); ALKALINE PHOSPHATASE 88 U/L (30-120); ALT (SGPT) 29 U/L (10-68); BILIRUBIN - TOTAL 0.37 mg/dL (0.2-1.3); CALC OSMOLALITY 268 mosm/kg (275-300); CALCIUM 8.2 mg/dL (8.5-10.1); CARBON DIOXIDE 22.8 mmol/L (21.0-32.0); CHLORIDE - SERUM 103 mmol/L (98-107); CREATININE - SERUM 0.8 mg/dL (0.6-1.3); GLUCOSE 103 mg/dL (74-106); MAGNESIUM - SERUM 1.4 mg/dL (1.8-2.4); POTASSIUM - SERUM 5.2 mmol/L (3.5-5.1); PROTEIN - SERUM 5.3 g/dL (6.4-8.2); SODIUM 133 mmol/L (136-145); UREA NITROGEN 22 mg/dL (7-18); eGFR NON AFRICAN AMERICAN > 90 mL/min (90-120)
--- NOTE | 2019-08-23 07:34 | NUR ---
ALERT AND ORIENTED. LUNGS CLEAR BILATERLALY. HEART SOUNDS S1 AND S2 HEARD IN ALL REBOLLAR. BOWEL SOUNDS ACTIVE X 4. BUTTOCKS RED BUT BLANCHABLE WITH OLD HEALING SORE CRUSTED OVER. FIRST STEP OVERLAY MATTRESS IN PLACE AND TURNING Q2HR. FAMILIA PICC PATENT WITHOUT REDNESS. O2 IN PLACE AT 2L HFNC. BED LOW. AT BEDSIDE. CALL YATES AND PERSONAL ITEMS IN REACH. WILL CONTINUE TO MONITOR.
[2019-08-23 09:14] VITALS: BP 90/51
--- NOTE | 2019-08-23 11:21 | NUR ---
PATIENT'S DE LA ROSA CLAMPED TO GET UA.
--- NOTE | 2019-08-23 12:02 | NUR ---
DE LA ROSA REMAINS CLAMPED. STILL NO URINE IN TUBE. PATIENT AND AT BEDSIDE DENY NEEDS. WILL CONTINUE TO MONITOR.
[2019-08-23 12:52] VITALS: BP 96/59
--- NOTE | 2019-08-23 13:40 | MORECARE ---
CASE MANAGEMENT DISCHARGE SUMMARY PATIENT: MARVIN HYATT UNIT: [id number] ADM DATE: 07/28/19 AGE: 79 : 40 SEX: M ROOM/BED: D.2229 AUTHOR: CAMACHO,DOC PHYSICIAN: REFERRING PHYSICIAN: RAVINDRA VERMA MD DATE OF SERVICE: 08/23/19 Discharge Plan Patient Name: MARVIN HYATT Facility: [facility]:[place] : 1940 Planned Disposition: Nursing Home Facility Anticipated Discharge Date: 07/30/19 Discharge Date: Expected LOS: 2 Initial Reviewer: [email or web address] Initial Review Date: 07/30/2019 Generated: 08/23/19 2:39 pm Comments DCP- Discharge Planning Updated by [id number]: Anais Muñiz on 08/18/19 8:[address] Updated clinical faxed to [facility]. CM will continue to follow and assist with discharge planning/needs. DCP- Discharge Planning Updated by [id number]: Leslie Hsieh on 08/16/19 11:[address] RECEIVED CALL BACK FROM DARIO WITH [facility]. WILL FORWARD CLINICAL FOR REVIEW. SHE WILL ADVISE AFTER REVIEW. VERBAL UPDATE ALSO GIVEN. DCP- Discharge Planning Updated by [id number]: Leslie Hsieh on 08/16/19 11:[address] UPDATED CLINICAL FAXED FOR REVIEW BY DARIO WITH [facility]. DCP- Discharge Planning Updated by [id number]: Anais Muñiz on 08/13/19 7:[address] Tonya from [facility] states he is NOT a candidate for LTACH, he is out of acute days. I sent updated clinical to [facility] SN[facility]. CM will continue to follow and assist with discharge planning/needs. DCP- Discharge Planning Updated by [id number]: Anais Muñiz on 08/10/19 2:[address] Spoke with Tonya with [facility] in [place] to see if he could be a candidate for their facility. Tonya states it may be possible even though he has not had a 3 MN stay in ICU. I faxed clinical for her to review per her request. CM will continue to follow and assist with discharge planning/needs. DCP- Discharge Planning Updated by [id number]: Anais Muñiz on 08/02/19 11:[address] Updated clinical faxed to [facility]. CM will continue to follow and assist with discharge planning/needs. DCP- Discharge Planning Updated by [email or web address]: Anais Muñiz on 07/30/19 11:[address] Patient Name: MARVIN HYATT Admission Status: Elective Accout number: [id number] Admission Date: 07-28-2019 : 1940 Admission Diagnosis: Attending: RAVINDRA VERMA Current LOS: 2 Anticipated DC Date: 07-30-2019 Planned Disposition: Nursing Home Facility Primary Insurance: MEDICARE A & B Discharge Planning Comments: CM met with patient and his to discuss discharge planning/needs. I had spoken to Jackeline, protective services case worker in inpatient rehab, prior to speaking with . Jackeline states that he only had 5 more days of therapy to complete, then was going to need a skilled facility and she recommends he go to a skilled facility from acute care. I informed the what the protective services case worker on rehab suggested and she agrees with plan for skilled therapy. He still has a NG tube in place, so is not ready at this time. signed KATI for [facility]. I called [facility] and spoke with Dario and clinical faxed. CM will continue to follow and assist with discharge planning/needs. Senior Environmental Practice Leader: Anais Muñiz DCPIA - Discharge Planning Initial Assessment Updated by [id number]: Anais Muñzi on 07/30/19 1:16 pm * Is the patient Alert and Oriented? Yes * PCP Dr. Enrique * Pharmacy [facility] * Preadmission Environment Acute Inpatient Rehab * Facility Name [facility] * ADLs Total Dependent * Equipment Cane Elevated Toliet Seat Walker * List name and contact numbers for known caregivers / representatives who currently or will assist patient after discharge: Hilda - spouse - [phone] * Verbal permission to speak to the caregivers and representatives has been obtained from the patient. Yes * Community resources currently utilized None * Additional services required to return to the preadmission environment? No * Can the patient safely return to the preadmission environment? Yes * Has this patient been hospitalized within the prior 30 days at any hospital? Yes External Providers External Provider: [facility] Next Contact Date: Service Request Date: Service Type: Resolution: Reviewer: Comments: Coverage Notice Reviewer: [id number] Malina Muñiz Notice Issued Date-Time: 07/30/2019 13:35 Notice Type: Patient Choice Letter Notice Delivered To: Family Member Relationship to Patient: Spouse Service Restorer Emergency Name: [facility] Delivery Method: - Lindsey Days: Prior Verbal Notification: Recipient Understood Notice: Recipient Signature: Med Rec Note Co-signed by Attending: Coverage Notice Comment: Reviewer: [id number] Malina Muñiz Notice Issued Date-Time: 08/23/2019 9:33 Notice Type: IM Discharge Notice Notice Delivered To: Family Member Relationship to Patient: Spouse Service Restorer Emergency Name: Hilda Delivery Method: HAND - Hand Delivered Lindsey Days: Prior Verbal Notification: Recipient Understood Notice: Yes Recipient Signature: Yes Med Rec Note Co-signed by Attending: Coverage Notice Comment: IMM explained, signed, given, copy placed in MR Last DP export: 08/18/19 8:26 am Patient Name: MARVIN HYATT Page [id number] at 1340 All edits/amendments must be made on the electronic document DICTATION DATE: 08/23/19 1339 POT BUILDER: DYLAN 08/23/19 1339 RPT#: [id number] DC DATE: STATUS: ADM IN [facility] [address] [place] [address] END OF REPORT
--- NOTE | 2019-08-23 13:50 | MORECARE ---
CASE MANAGEMENT DISCHARGE SUMMARY PATIENT: MARVIN HYATT UNIT: [id number] ADM DATE: 07/28/19 AGE: 79 : 40 SEX: M ROOM/BED: D.2229 AUTHOR: CAMACHO,DOC PHYSICIAN: REFERRING PHYSICIAN: RAVINDRA VERMA MD DATE OF SERVICE: 08/23/19 Discharge Plan Patient Name: MARVIN HYATT Facility: [facility]:[place] : 1940 Planned Disposition: Jail Facility Anticipated Discharge Date: 07/30/19 Discharge Date: Expected LOS: 2 Initial Reviewer: [email or web address] Initial Review Date: 07/30/2019 Generated: 08/23/19 2:49 pm Comments DCP- Discharge Planning Updated by [id number]: Anais Muñiz on 08/18/19 8:[address] Updated clinical faxed to [facility]. CM will continue to follow and assist with discharge planning/needs. DCP- Discharge Planning Updated by [id number]: Leslie Hsieh on 08/16/19 11:[address] RECEIVED CALL BACK FROM DARIO WITH [facility]. WILL FORWARD CLINICAL FOR REVIEW. SHE WILL ADVISE AFTER REVIEW. VERBAL UPDATE ALSO GIVEN. DCP- Discharge Planning Updated by [id number]: Leslie Hsieh on 08/16/19 11:[address] UPDATED CLINICAL FAXED FOR REVIEW BY DARIO WITH [facility]. DCP- Discharge Planning Updated by [id number]: Anais Muñiz on 08/13/19 7:[address] Tonya from [facility] states he is NOT a candidate for LTACH, he is out of acute days. I sent updated clinical to [facility] SNF. CM will continue to follow and assist with discharge planning/needs. DCP- Discharge Planning Updated by [id number]: Anais Muñiz on 08/10/19 2:[address] Spoke with Tonya with [facility] in [place] to see if he could be a candidate for their facility. Tonya states it may be possible even though he has not had a 3 MN stay in ICU. I faxed clinical for her to review per her request. CM will continue to follow and assist with discharge planning/needs. DCP- Discharge Planning Updated by [id number]: Anais Muñiz on 08/02/19 11:[address] Updated clinical faxed to [facility]. CM will continue to follow and assist with discharge planning/needs. DCP- Discharge Planning Updated by [id number]: Anais Muñiz on 07/30/19 11:[address] Patient Name: MARVIN HYATT Admission Status: Elective Accout number: [id number] Admission Date: 07-28-2019 : 1940 Admission Diagnosis: Attending: RAVINDRA VERMA Current LOS: 2 Anticipated DC Date: 07-30-2019 Planned Disposition: Jail Facility Primary Insurance: MEDICARE A & B Discharge Planning Comments: CM met with patient and his to discuss discharge planning/needs. I had spoken to Jackeline, therapeutic case manager in inpatient rehab, prior to speaking with . Jackeline states that he only had 5 more days of therapy to complete, then was going to need a skilled facility and she recommends he go to a skilled facility from acute care. I informed the what the therapeutic case manager on rehab suggested and she agrees with plan for skilled therapy. He still has a NG tube in place, so is not ready at this time. signed KATI for [facility]. I called [facility] and spoke with Dario and clinical faxed. CM will continue to follow and assist with discharge planning/needs. Cotton Picker Operator: Anais Artemioliz DCPIA - Discharge Planning Initial Assessment Updated by [id number]: Anais Muñiz on 07/30/19 1:16 pm * Is the patient Alert and Oriented? Yes * PCP Dr. Enrique * Pharmacy [facility] * Preadmission Environment Acute Inpatient Rehab * Facility Name [facility] * ADLs Total Dependent * Equipment Cane Elevated Toliet Seat Walker * List name and contact numbers for known caregivers / representatives who currently or will assist patient after discharge: Hilda - spouse - [phone] * Verbal permission to speak to the caregivers and representatives has been obtained from the patient. Yes * Community resources currently utilized None * Additional services required to return to the preadmission environment? No * Can the patient safely return to the preadmission environment? Yes * Has this patient been hospitalized within the prior 30 days at any hospital? Yes External Providers External Provider: [facility] Next Contact Date: Service Request Date: Service Type: Resolution: Reviewer: Comments: Coverage Notice Reviewer: [id number] Malina Muñiz Notice Issued Date-Time: 07/30/2019 13:35 Notice Type: Patient Choice Letter Notice Delivered To: Family Member Relationship to Patient: Spouse Bacon Skinner Name: [facility]astume Delivery Method: - Lindsey Days: Prior Verbal Notification: Recipient Understood Notice: Recipient Signature: Med Rec Note Co-signed by Attending: Coverage Notice Comment: Reviewer: [id number] Malina Muñiz Notice Issued Date-Time: 08/23/2019 9:33 Notice Type: IM Discharge Notice Notice Delivered To: Family Member Relationship to Patient: Spouse Bacon Skinner Name: Hilda Delivery Method: HAND - Hand Delivered Lindsey Days: Prior Verbal Notification: Recipient Understood Notice: Yes Recipient Signature: Yes Med Rec Note Co-signed by Attending: Coverage Notice Comment: IMM explained, signed, given, copy placed in MR Last DP export: 08/23/19 12:40 pm Patient Name: MARVIN HYATT Page [id number] at 1350 All edits/amendments must be made on the electronic document DICTATION DATE: 08/23/19 1349 CYLINDER STEAMER: DYLAN 08/23/19 1349 RPT#: [id number] DC DATE: STATUS: ADM IN [facility] [address] [place] [address] END OF REPORT
--- NOTE | 2019-08-23 14:00 | MORECARE ---
CASE MANAGEMENT DISCHARGE SUMMARY PATIENT: MARVIN HYATT UNIT: [id number] ADM DATE: 07/28/19 AGE: 79 : 40 SEX: M ROOM/BED: D.2229 AUTHOR: CAMACHO,DOC PHYSICIAN: REFERRING PHYSICIAN: RAVINDRA VERMA MD DATE OF SERVICE: 08/23/19 Discharge Plan Patient Name: MARVIN HYATT Facility: [facility]:[place] : 1940 Planned Disposition: Care Home Facility Anticipated Discharge Date: 07/30/19 Discharge Date: Expected LOS: 2 Initial Reviewer: [id number] Initial Review Date: 07/30/2019 Generated: 08/23/19 2:59 pm Comments DCP- Discharge Planning Updated by [id number]: Anais Muñiz on 08/23/19 12:[address] I called Dario again from [facility] and she states that they have another meeting at 3PM, but at this time they are not accepting any new patients. I spoke with patient and his and they would like a referral to [facility]. I spoke with Helena at [facility] and clinical faxed. CM will continue to follow and assist with discharge planning/needs. DCP- Discharge Planning Updated by [id number]: Anais Muñiz on 08/18/19 8:[address] Updated clinical faxed to [facility]. CM will continue to follow and assist with discharge planning/needs. DCP- Discharge Planning Updated by [email or web address]: Leslie Hsieh on 08/16/19 11:[address] RECEIVED CALL BACK FROM DARIO WITH [facility]. WILL FORWARD CLINICAL FOR REVIEW. SHE WILL ADVISE AFTER REVIEW. VERBAL UPDATE ALSO GIVEN. DCP- Discharge Planning Updated by [id number]: Leslie Hsieh on 08/16/19 11:[address] UPDATED CLINICAL FAXED FOR REVIEW BY DARIO WITH [facility]. DCP- Discharge Planning Updated by [id number]: Anais Muñiz on 08/13/19 7:[address] Tonya from [facility] states he is NOT a candidate for LTACH, he is out of acute days. I sent updated clinical to [facility] SN[facility]. CM will continue to follow and assist with discharge planning/needs. DCP- Discharge Planning Updated by [email or web address]: Anais Muñiz on 08/10/19 2:[address] Spoke with Tonya with [facility] in [place] to see if he could be a candidate for their facility. Tonya states it may be possible even though he has not had a 3 MN stay in ICU. I faxed clinical for her to review per her request. CM will continue to follow and assist with discharge planning/needs. DCP- Discharge Planning Updated by [id number]: Anais Muñiz on 08/02/19 11:[address] Updated clinical faxed to [facility]. CM will continue to follow and assist with discharge planning/needs. DCP- Discharge Planning Updated by [id number]: Anais Muñiz on 07/30/19 11:[address] Patient Name: MARVIN HYATT Admission Status: Elective Accout number: [id number] Admission Date: 07-28-2019 : 1940 Admission Diagnosis: Attending: RAVINDRA VERMA Current LOS: 2 Anticipated DC Date: 07-30-2019 Planned Disposition: Care Home Facility Primary Insurance: MEDICARE A & B Discharge Planning Comments: CM met with patient and his to discuss discharge planning/needs. I had spoken to Jackeline, case management assistant in inpatient rehab, prior to speaking with . Jackeline states that he only had 5 more days of therapy to complete, then was going to need a skilled facility and she recommends he go to a skilled facility from acute care. I informed the what the case management assistant on rehab suggested and she agrees with plan for skilled therapy. He still has a NG tube in place, so is not ready at this time. signed KATI for [facility]. I called [facility] and spoke with Dario and clinical faxed. CM will continue to follow and assist with discharge planning/needs. Can Handler: Anais Muñiz DCPIA - Discharge Planning Initial Assessment Updated by [id number]: Anais Muñiz on 07/30/19 1:16 pm * Is the patient Alert and Oriented? Yes * PCP Dr. Enrique * Pharmacy [facility] * Preadmission Environment Acute Inpatient Rehab * Facility Name [facility] * ADLs Total Dependent * Equipment Cane Elevated Toliet Seat Walker * List name and contact numbers for known caregivers / representatives who currently or will assist patient after discharge: Hilda abraham - [phone] * Verbal permission to speak to the caregivers and representatives has been obtained from the patient. Yes * Community resources currently utilized None * Additional services required to return to the preadmission environment? No * Can the patient safely return to the preadmission environment? Yes * Has this patient been hospitalized within the prior 30 days at any hospital? Yes Coverage Notice Reviewer: [id number] Muñiz Notice Issued Date-Time: 07/30/2019 13:35 Notice Type: Patient Choice Letter Notice Delivered To: Family Member Relationship to Patient: Spouse Bookmobile Librarian Name: Meli Sagastume Delivery Method: - Lindsey Days: Prior Verbal Notification: Recipient Understood Notice: Recipient Signature: Med Rec Note Co-signed by Attending: Coverage Notice Comment: Reviewer: EVA Muñiz Notice Issued Date-Time: 08/23/2019 9:33 Notice Type: IM Discharge Notice Notice Delivered To: Family Member Relationship to Patient: Spouse Bookmobile Librarian Name: Hilda Delivery Method: HAND - Hand Delivered Lindsey Days: Prior Verbal Notification: Recipient Understood Notice: Yes Recipient Signature: Yes Med Rec Note Co-signed by Attending: Coverage Notice Comment: IMM explained, signed, given, copy placed in MR Reviewer: [id number] Muñiz Notice Issued Date-Time: 08/23/2019 13:53 Notice Type: Patient Choice Letter Notice Delivered To: Family Member Relationship to Patient: Spouse Bookmobile Librarian Name: Hilda Delivery Method: HAND - Hand Delivered Lindsey Days: Prior Verbal Notification: Recipient Understood Notice: Yes Recipient Signature: Yes Med Rec Note Co-signed by Attending: Coverage Notice Comment: [facility] for [facility] Last DP export: 08/23/19 12:50 pm Patient Name: MARVIN HYATT Page [id number] at 1400 All edits/amendments must be made on the electronic document DICTATION DATE: 08/23/19 1359 SHELL SIEVE OPERATOR: DYLAN 08/23/19 1359 RPT#: [id number] DC DATE: STATUS: ADM IN [facility] [address] [place] [address] END OF REPORT
[2019-08-23 15:47] LABS: BILIRUBIN NEGATIVE (NEGATIVE); GLUCOSE NEGATIVE (NEGATIVE); KETONE NEGATIVE (NEGATIVE); NITRITE NEGATIVE (NEGATIVE); UROBILINOGEN NORMAL (NORMAL)
[2019-08-23 15:48] LABS: BACTERIA FEW /hpf (NEGATIVE); RED CELLS - URINE 0-5 /hpf (0-5); WHITE CELLS - URINE OCC /hpf (NEGATIVE)
[2019-08-23] MEDS ORDERED: FLUTICASONE PRO16 GM NASAL (16:01)
[2019-08-23] MEDS ORDERED: CALMOSEPTINE OI71 GM TOPICAL (16:02)
[2019-08-23] MEDS ORDERED: Zovirax TOPICAL (16:02)
--- NOTE | 2019-08-23 16:42 | MORECARE ---
CASE MANAGEMENT DISCHARGE SUMMARY PATIENT: MARVIN HYATT N UNIT: [id number] ADM DATE: 07/28/19 AGE: 79 : 40 SEX: M ROOM/BED: D.2229 AUTHOR: CAMACHO,DOC PHYSICIAN: REFERRING PHYSICIAN: RAVINDRA VERMA MD DATE OF SERVICE: 08/23/19 Discharge Plan Patient Name: MARVIN HYATT Facility: [facility]:[place] : 1940 Planned Disposition: Snf Facility Anticipated Discharge Date: 07/30/19 Discharge Date: Expected LOS: 2 Initial Reviewer: [id number] Initial Review Date: 07/30/2019 Generated: 08/23/19 5:42 pm Comments DCP- Discharge Planning Updated by [id number]: Anais Muñiz on 08/23/19 3:[address] CM RECEIVED A CALL BACK FROM DARIO THAT THEY WILL ACCEPT PATIENT TOMORROW AND CAN PICK HIM UP AT 11:00. I ALSO RECEIVED A CALL FROM [facility] THAT [facility] CAN ACCPET HIM. I SPOKE WITH BOTH THE AND THE PATIENT AND THEY WOULD BOTH LIKE [facility] IN [place]. [facility] AND HELENA NOTIFIED OF DECISION. I INFORMED [facility] THAT PATIENT CAN BE DISCHARGED IN THE AM TO [facility] IN [place]. PATIENT'S PRIMARY NURSE, BRIAN INFORMED. HE WILL DISCHARGE TO A SKILLED BED. DCP- Discharge Planning Updated by [id number]: Anais Muñiz on 08/23/19 12:[address] I called Dario again from [facility] and she states that they have another meeting at 3PM, but at this time they are not accepting any new patients. I spoke with patient and his and they would like a referral to [facility]. I spoke with Helena at [facility] and clinical faxed. CM will continue to follow and assist with discharge planning/needs. DCP- Discharge Planning Updated by [id number]: Anais Muñiz on 08/18/19 8:[address] Updated clinical faxed to [facility]. CM will continue to follow and assist with discharge planning/needs. DCP- Discharge Planning Updated by [id number]: Leslie Hsieh on 08/16/19 11:[address] RECEIVED CALL BACK FROM DARIO WITH [facility]. WILL FORWARD CLINICAL FOR REVIEW. SHE WILL ADVISE AFTER REVIEW. VERBAL UPDATE ALSO GIVEN. DCP- Discharge Planning Updated by [id number]: Leslie Hsieh on 08/16/19 11:[address] UPDATED CLINICAL FAXED FOR REVIEW BY DARIO WITH [facility]. DCP- Discharge Planning Updated by [email or web address]: Anais Muñiz on 08/13/19 7:[address] Tonya from [facility] states he is NOT a candidate for LTACH, he is out of acute days. I sent updated clinical to [facility]. CM will continue to follow and assist with discharge planning/needs. DCP- Discharge Planning Updated by [email or web address]: Anais Muñiz on 08/10/19 2:[address] Spoke with Tonya with [facility] in [place] to see if he could be a candidate for their facility. Tonya states it may be possible even though he has not had a 3 MN stay in ICU. I faxed clinical for her to review per her request. CM will continue to follow and assist with discharge planning/needs. DCP- Discharge Planning Updated by [id number]: Anais Muñiz on 08/02/19 11:[address] Updated clinical faxed to [facility]. CM will continue to follow and assist with discharge planning/needs. DCP- Discharge Planning Updated by [id number]: Anais Muñiz on 07/30/19 11:[address] Patient Name: MARVIN HYATT Admission Status: Elective Accout number: [id number] Admission Date: 07-28-2019 : 1940 Admission Diagnosis: Attending: RAVINDRA VERMA Current LOS: 2 Anticipated DC Date: 07-30-2019 Planned Disposition: Snf Facility Primary Insurance: MEDICARE A & B Discharge Planning Comments: CM met with patient and his to discuss discharge planning/needs. I had spoken to Jackeline, housing case manager in inpatient rehab, prior to speaking with . Jackeline states that he only had 5 more days of therapy to complete, then was going to need a skilled facility and she recommends he go to a skilled facility from acute care. I informed the what the housing case manager on rehab suggested and she agrees with plan for skilled therapy. He still has a NG tube in place, so is not ready at this time. signed KATI for [facility]. I called [facility] and spoke with Dario and clinical faxed. CM will continue to follow and assist with discharge planning/needs. Bell Staff: Anais Antonino DCPIA - Discharge Planning Initial Assessment Updated by [id number]: Anais Muñiz on 07/30/19 1:16 pm * Is the patient Alert and Oriented? Yes * PCP Dr. Enrique * Pharmacy [facility] * Preadmission Environment Acute Inpatient Rehab * Facility Name [facility] * ADLs Total Dependent * Equipment Cane Elevated Toliet Seat Walker * List name and contact numbers for known caregivers / representatives who currently or will assist patient after discharge: Hilda - spouse - [phone] * Verbal permission to speak to the caregivers and representatives has been obtained from the patient. Yes * Community resources currently utilized None * Additional services required to return to the preadmission environment? No * Can the patient safely return to the preadmission environment? Yes * Has this patient been hospitalized within the prior 30 days at any hospital? Yes Coverage Notice Reviewer: [id number] Malina Muñiz Notice Issued Date-Time: 07/30/2019 13:35 Notice Type: Patient Choice Letter Notice Delivered To: Family Member Relationship to Patient: Spouse Battery Stacker Name: [facility]ast[facility] Delivery Method: - Lindsey Days: Prior Verbal Notification: Recipient Understood Notice: Recipient Signature: Med Rec Note Co-signed by Attending: Coverage Notice Comment: Reviewer: [id number] Muñiz Notice Issued Date-Time: 08/23/2019 9:33 Notice Type: IM Discharge Notice Notice Delivered To: Family Member Relationship to Patient: Spouse Battery Stacker Name: Hilda Delivery Method: HAND - Hand Delivered Lindsey Days: Prior Verbal Notification: Recipient Understood Notice: Yes Recipient Signature: Yes Med Rec Note Co-signed by Attending: Coverage Notice Comment: IMM explained, signed, given, copy placed in MR Reviewer: [id number] Malina Muñiz Notice Issued Date-Time: 08/23/2019 13:53 Notice Type: Patient Choice Letter Notice Delivered To: Family Member Relationship to Patient: Spouse Battery Stacker Name: Hilda Delivery Method: HAND - Hand Delivered Lindsey Days: Prior Verbal Notification: Recipient Understood Notice: Yes Recipient Signature: Yes Med Rec Note Co-signed by Attending: Coverage Notice Comment: KATI for [facility] Last DP export: 08/23/19 1:00 pm Patient Name: MARVIN HYATT Page [id number] at 1642 All edits/amendments must be made on the electronic document DICTATION DATE: 08/23/191641 RHEOSTAT ASSEMBLER: DYLAN 08/23/191641 RPT#: [id number] DC DATE: STATUS: ADM IN [facility] [address] [place] [address] END OF REPORT
[2019-08-23 17:13] VITALS: BP 99/59
[2019-08-23 20:00] VITALS: BP 94/59
--- NOTE | 2019-08-23 20:15 | NUR ---
OT NOTE: (AM SESSION) PT COMPLETED SUPINE TO SIT WITH MOD A. PT COMPLETED EOB SITTING WITH CGA. PT COMPLETED UE AROM AT EOB WITH CGA. PT COMPLETED TASKS WITH LESS BREAKS REQUIRED. (PM SESSION) PT COMPLETED ORAL HYGIENE WITH MIN/MOD A. PT COMPLETED FACE WASH WITH SET UP. PT COMPLETED BUE AROM EXS WITH DECREASED VERBAL CUES. AT BEDSIDE. STATED [facility] [phone] THANK YOU,DERREK SIGALA
[2019-08-24] VITALS: BP 101/62
[2019-08-24 04:00] VITALS: BP 89/51
[2019-08-24 06:35] LABS: BASOPHILS 0.2 % (0-2); EOSINOPHILS 0.4 % (0-7); HEMATOCRIT 26.3 % (42.0-54.0); HEMOGLOBIN 8.5 g/dL (13.5-17.5); IMMATURE GRANULOCYTES 3.7 % (0-5); LYMPHOCYTES 24.2 % (15-50); MCH 28.9 pg (26.0-34.0); MCHC 32.3 g/dL (31.0-37.0); MCV 89.5 fL (80.0-100.0); MEAN PLATELET VOLUME 9.8 fL (7.4-10.4); MONOCYTES 14.4 % (2-11); NEUTROPHILS 57.1 % (40-80); PLATELET COUNT 309 10x3/uL (130-400); RBC 2.94 10x6/uL (4.20-6.10); RDW 20.4 % (11.5-14.5); WBC 8.4 10x3/uL (4.8-10.8)
[2019-08-24 07:14] LABS: ALBUMIN 1.6 g/dL (3.4-5.0); ALKALINE PHOSPHATASE 78 U/L (30-120); ALT (SGPT) 22 U/L (10-68); CALC OSMOLALITY 266 mosm/kg (275-300); CALCIUM 8.4 mg/dL (8.5-10.1); CARBON DIOXIDE 23.7 mmol/L (21.0-32.0); CHLORIDE - SERUM 101 mmol/L (98-107); CREATININE - SERUM 0.8 mg/dL (0.6-1.3); GLUCOSE 82 mg/dL (74-106); PROTEIN - SERUM 5.7 g/dL (6.4-8.2); SODIUM 132 mmol/L (136-145); UREA NITROGEN 21 mg/dL (7-18); eGFR NON AFRICAN AMERICAN > 90 mL/min (90-120)
[2019-08-24 07:19] LABS: POTASSIUM - SERUM 3.9 mmol/L (3.5-5.1)
--- NOTE | 2019-08-24 07:36 | NUR ---
I have reviewed this patient and I concur with the Shift Assessment completed by the Licensed Practical Nurse today this shift.
--- NOTE | 2019-08-24 08:41 | MORECARE ---
CASE MANAGEMENT DISCHARGE SUMMARY PATIENT: MARVIN HYATT N UNIT: [id number] ADM DATE: 07/28/19 AGE: 79 : 40 SEX: M ROOM/BED: D.2229 AUTHOR: CAMACHO,DOC PHYSICIAN: REFERRING PHYSICIAN: RAVINDRA VERMA MD DATE OF SERVICE: 08/24/19 Discharge Plan Patient Name: MARVIN HYATT Facility: [facility]:[place] : 1940 Planned Disposition: Residential Facility Anticipated Discharge Date: 07/30/19 Discharge Date: Expected LOS: 2 Initial Reviewer: [id number] Initial Review Date: 07/30/2019 Generated: 08/24/19 9:41 am Comments DCP- Discharge Planning Updated by [id number]: Anais Muñiz on 08/24/19 7:[address] Discharging to a skilled (Medicare) bed today at [facility]. [facility] is picking up at 11:00 today, family and patient in agreement. DCP- Discharge Planning Updated by [id number]: Anais Muñiz on 08/23/19 3:[address] CM RECEIVED A CALL BACK FROM [facility] THAT THEY WILL ACCEPT PATIENT TOMORROW AND CAN PICK HIM UP AT 11:00. I ALSO RECEIVED A CALL FROM [facility] THAT [facility] CAN ACCPET HIM. I SPOKE WITH BOTH THE AND THE PATIENT AND THEY WOULD BOTH LIKE [facility] IN [place]. DARIO AND HELENA NOTIFIED OF DECISION. I INFORMED [facility] THAT PATIENT CAN BE DISCHARGED IN THE AM TO [facility] IN [place]. PATIENT'S PRIMARY NURSE, BRIAN INFORMED. HE WILL DISCHARGE TO A SKILLED BED. DCP- Discharge Planning Updated by [id number]: Anais Muñiz on 08/23/19 12:[address] I called Dario again from [facility] and she states that they have another meeting at 3PM, but at this time they are not accepting any new patients. I spoke with patient and his and they would like a referral to [facility]. I spoke with Helena at [facility] and clinical faxed. CM will continue to follow and assist with discharge planning/needs. DCP- Discharge Planning Updated by [id number]: Anais Muñiz on 08/18/19 8:[address] Updated clinical faxed to [facility]. CM will continue to follow and assist with discharge planning/needs. DCP- Discharge Planning Updated by [id number]: Leslie Hsieh on 08/16/19 11:[address] RECEIVED CALL BACK FROM DARIO WITH [facility]. WILL FORWARD CLINICAL FOR REVIEW. SHE WILL ADVISE AFTER REVIEW. VERBAL UPDATE ALSO GIVEN. DCP- Discharge Planning Updated by [id number]: Leslie Hsieh on 08/16/19 11:[address] UPDATED CLINICAL FAXED FOR REVIEW BY DARIO WITH [facility]. DCP- Discharge Planning Updated by [id number]: Anais Muñiz on 08/13/19 7:[address] Tonya from [facility] states he is NOT a candidate for LTACH, he is out of acute days. I sent updated clinical to [facility]. CM will continue to follow and assist with discharge planning/needs. DCP- Discharge Planning Updated by [id number]: Anais Muñiz on 08/10/19 2:[address] Spoke with Tonya with [facility] [place] to see if he could be a candidate for their facility. Tonya states it may be possible even though he has not had a 3 MN stay in ICU. I faxed clinical for her to review per her request. CM will continue to follow and assist with discharge planning/needs. DCP- Discharge Planning Updated by [id number]: Anais Muñiz on 08/02/19 11:[address] Updated clinical faxed to [facility]. CM will continue to follow and assist with discharge planning/needs. DCP- Discharge Planning Updated by [id number]: Anais Muñiz on 07/30/19 11:[address] Patient Name: MARVIN HYATT Admission Status: Elective Accout number: [id number] Admission Date: 07-28-2019 : 1940 Admission Diagnosis: Attending: RAVINDRA VERMA Current LOS: 2 Anticipated DC Date: 07-30-2019 Planned Disposition: Residential Facility Primary Insurance: MEDICARE A & B Discharge Planning Comments: CM met with patient and his to discuss discharge planning/needs. I had spoken to Jackeline, case manager specialist in inpatient rehab, prior to speaking with . Jackeline states that he only had 5 more days of therapy to complete, then was going to need a skilled facility and she recommends he go to a skilled facility from acute care. I informed the what the case manager specialist on rehab suggested and she agrees with plan for skilled therapy. He still has a NG tube in place, so is not ready at this time. signed KATI for [facility]. I called [facility] and spoke with Dario and clinical faxed. CM will continue to follow and assist with discharge planning/needs. Research Dietitian: Anais Muñiz DCPIA - Discharge Planning Initial Assessment Updated by [id number]: Anais Muñiz on 07/30/19 1:16 pm * Is the patient Alert and Oriented? Yes * PCP Dr. Enrique * Pharmacy [facility] * Preadmission Environment Acute Inpatient Rehab * Facility Name [facility] * ADLs Total Dependent * Equipment Cane Elevated Toliet Seat Walker * List name and contact numbers for known caregivers / representatives who currently or will assist patient after discharge: Hilda Radford spouse - [phone] * Verbal permission to speak to the caregivers and representatives has been obtained from the patient. Yes * Community resources currently utilized None * Additional services required to return to the preadmission environment? No * Can the patient safely return to the preadmission environment? Yes * Has this patient been hospitalized within the prior 30 days at any hospital? Yes Coverage Notice Reviewer: [id number] Muñiz Notice Issued Date-Time: 07/30/2019 13:35 Notice Type: Patient Choice Letter Notice Delivered To: Family Member Relationship to Patient: Spouse Health Insurance Specialist Name: Meli Sagastume Delivery Method: - Lindsey Days: Prior Verbal Notification: Recipient Understood Notice: Recipient Signature: Med Rec Note Co-signed by Attending: Coverage Notice Comment: Reviewer: [id number] Muñiz Notice Issued Date-Time: 08/23/2019 9:33 Notice Type: IM Discharge Notice Notice Delivered To: Family Member Relationship to Patient: Spouse Health Insurance Specialist Name: Hilda Delivery Method: HAND - Hand Delivered Lindsey Days: Prior Verbal Notification: Recipient Understood Notice: Yes Recipient Signature: Yes Med Rec Note Co-signed by Attending: Coverage Notice Comment: IMM explained, signed, given, copy placed in MR Reviewer: [id number] Malina Muñiz Notice Issued Date-Time: 08/23/2019 13:53 Notice Type: Patient Choice Letter Notice Delivered To: Family Member Relationship to Patient: Spouse Health Insurance Specialist Name: Hilda Delivery Method: HAND - Hand Delivered Lindsey Days: Prior Verbal Notification: Recipient Understood Notice: Yes Recipient Signature: Yes Med Rec Note Co-signed by Attending: Coverage Notice Comment: KATI for [facility] Last DP export: 08/23/19 3:42 pm Patient Name: MARVIN HYATT Page [id number] at 0841 All edits/amendments must be made on the electronic document DICTATION DATE: 08/24/19840 [place]: DYLAN 08/24/19840 RPT#: [id number] DC DATE: STATUS: ADM IN [facility] [address] [place] [address] END OF REPORT
--- NOTE | 2019-08-24 09:09 | NUR ---
picc line removed from right upper arm per policy. no reddness or drainage noted at insertion site. catheter removed at 42 cm. biopatch and occlusive dressing applied. tolerated procedure without complaints
[2019-08-24 09:42] VITALS: BP 98/54
--- NOTE | 2019-08-24 11:47 | NUR ---
PT LYING IN BED WITH SPOUSE AT BEDSIDE, HELPED PT GET DRESSED AND READY FOR TRANSPORT, CALLED REPORT TO [facility] AND SPOKE TO LISANDRO, NO S/SX OF DISTRESS, PT READY FOR DC. CONTINUE WITH PLAN OF CARE
--- NOTE | 2019-08-25 06:50 | MORECARE ---
CASE MANAGEMENT DISCHARGE SUMMARY PATIENT: MARVIN HYATT N UNIT: [id number] ADM DATE: 07/28/19 AGE: 79 : 40 SEX: M ROOM/BED: D.2229 AUTHOR: CAMACHO,DOC PHYSICIAN: REFERRING PHYSICIAN: RAVINDRA VERMA MD DATE OF SERVICE: 08/25/19 Discharge Plan Patient Name: MARVIN HYATT Facility: [facility]:[place] : 1940 Planned Disposition: Residential Facility Anticipated Discharge Date: 07/30/19 Discharge Date: 08/24/2019 Expected LOS: 2 Initial Reviewer: [id number] Initial Review Date: 07/30/2019 Generated: 08/25/19 7:49 am Comments DCP- Discharge Planning Updated by [id number]: Anais Muñiz on 08/24/19 7:[address] Discharging to a skilled (Medicare) bed today at [facility]. [facility] is picking up at 11:00 today, family and patient in agreement. DCP- Discharge Planning Updated by [id number]: Anais Muñiz on 08/23/19 3:[address] CM RECEIVED A CALL BACK FROM [facility] THAT THEY WILL ACCEPT PATIENT TOMORROW AND CAN PICK HIM UP AT 11:00. I ALSO RECEIVED A CALL FROM HELENA THAT [facility] CAN ACCPET HIM. I SPOKE WITH BOTH THE AND THE PATIENT AND THEY WOULD BOTH LIKE [facility] IN [place]. DARIO AND HELENA NOTIFIED OF DECISION. I INFORMED [facility] THAT PATIENT CAN BE DISCHARGED IN THE AM TO [facility] [place]. PATIENT'S PRIMARY NURSE, BRIAN INFORMED. HE WILL DISCHARGE TO A SKILLED BED. DCP- Discharge Planning Updated by [id number]: Anais Muñiz on 08/23/19 12:[address] I called Dario again from [facility] and she states that they have another meeting at 3PM, but at this time they are not accepting any new patients. I spoke with patient and his and they would like a referral to [facility]. I spoke with Helena at [facility] and clinical faxed. CM will continue to follow and assist with discharge planning/needs. DCP- Discharge Planning Updated by [id number]: Anais Muñiz on 08/18/19 8:[address] Updated clinical faxed to [facility]. CM will continue to follow and assist with discharge planning/needs. DCP- Discharge Planning Updated by [id number]: Leslie Hsieh on 08/16/19 11:[address] RECEIVED CALL BACK FROM DARIO WITH [facility]. WILL FORWARD CLINICAL FOR REVIEW. SHE WILL ADVISE AFTER REVIEW. VERBAL UPDATE ALSO GIVEN. DCP- Discharge Planning Updated by [id number]: Leslie Hsieh on 08/16/19 11:[address] UPDATED CLINICAL FAXED FOR REVIEW BY DARIO WITH [facility]. DCP- Discharge Planning Updated by [id number]: Anais Muñiz on 08/13/19 7:[address] Tonya from [facility] states he is NOT a candidate for LTACH, he is out of acute days. I sent updated clinical to [facility]. CM will continue to follow and assist with discharge planning/needs. DCP- Discharge Planning Updated by [id number]: Anais Muñiz on 08/10/19 2:[address] Spoke with Tonya with [facility] [place] to see if he could be a candidate for their facility. Tonya states it may be possible even though he has not had a 3 MN stay in ICU. I faxed clinical for her to review per her request. CM will continue to follow and assist with discharge planning/needs. DCP- Discharge Planning Updated by [id number]: Anais Muñiz on 08/02/19 11:[address] Updated clinical faxed to [facility]. CM will continue to follow and assist with discharge planning/needs. DCP- Discharge Planning Updated by [id number]: Anais Muñiz on 07/30/19 11:[address] Patient Name: MARVIN HYATT Admission Status: Elective Accout number: [id number] Admission Date: 07-28-2019 : 1940 Admission Diagnosis: Attending: RAVINDRA VERMA Current LOS: 2 Anticipated DC Date: 07-30-2019 Planned Disposition: Residential Facility Primary Insurance: MEDICARE A & B Discharge Planning Comments: CM met with patient and his to discuss discharge planning/needs. I had spoken to Jackeline, upper caser in inpatient rehab, prior to speaking with . Jackeline states that he only had 5 more days of therapy to complete, then was going to need a skilled facility and she recommends he go to a skilled facility from acute care. I informed the what the upper caser on rehab suggested and she agrees with plan for skilled therapy. He still has a NG tube in place, so is not ready at this time. signed KATI for [facility]. I called [facility] and spoke with Dario and clinical faxed. CM will continue to follow and assist with discharge planning/needs. Splunk Consultant: Anais Muñiz DCPIA - Discharge Planning Initial Assessment Updated by [id number]: Anais Muñiz on 07/30/19 1:16 pm * Is the patient Alert and Oriented? Yes * PCP Dr. Enrique * Pharmacy [facility] * Preadmission Environment Acute Inpatient Rehab * Facility Name [facility] * ADLs Total Dependent * Equipment Cane Elevated Toliet Seat Walker * List name and contact numbers for known caregivers / representatives who currently or will assist patient after discharge: Hilda - spouse - [phone] * Verbal permission to speak to the caregivers and representatives has been obtained from the patient. Yes * Community resources currently utilized None * Additional services required to return to the preadmission environment? No * Can the patient safely return to the preadmission environment? Yes * Has this patient been hospitalized within the prior 30 days at any hospital? Yes Coverage Notice Reviewer: [id number] Muñiz Notice Issued Date-Time: 07/30/2019 13:35 Notice Type: Patient Choice Letter Notice Delivered To: Family Member Relationship to Patient: Spouse Fire Alarm Installer Name: Meli Sagastume Delivery Method: - Lindsey Days: Prior Verbal Notification: Recipient Understood Notice: Recipient Signature: Med Rec Note Co-signed by Attending: Coverage Notice Comment: Reviewer: [id number] Muñiz Notice Issued Date-Time: 08/23/2019 9:33 Notice Type: IM Discharge Notice Notice Delivered To: Family Member Relationship to Patient: Spouse Fire Alarm Installer Name: Hilda Delivery Method: HAND - Hand Delivered Lindsey Days: Prior Verbal Notification: Recipient Understood Notice: Yes Recipient Signature: Yes Med Rec Note Co-signed by Attending: Coverage Notice Comment: IMM explained, signed, given, copy placed in MR Reviewer: [id number] Malina Muñiz Notice Issued Date-Time: 08/23/2019 13:53 Notice Type: Patient Choice Letter Notice Delivered To: Family Member Relationship to Patient: Spouse Fire Alarm Installer Name: Hilda Delivery Method: HAND - Hand Delivered Lindsey Days: Prior Verbal Notification: Recipient Understood Notice: Yes Recipient Signature: Yes Med Rec Note Co-signed by Attending: Coverage Notice Comment: KATI for [facility] Last DP export: 08/24/19 7:41 a Patient Name: MARVIN HYATT Page [phone] at 0650 All edits/amendments must be made on the electronic document DICTATION DATE: 08/25/19 0649 PRINTED CIRCUIT BOARDS INSPECTOR: DYLAN 08/25/19 0649 RPT#: [id number] DC DATE:08/24/19 STATUS: DIS IN [facility] [address] [place] [address] END OF REPORT
== END 2019-08-24 12:44 | DRG 388 ==
LOC: D.MS 18:50
PROVIDERS: Emergency Medicine; Family Medicine; ADMIT Internal Medicine Nephrology; ATTEND Internal Medicine Nephrology
PROC: 05HY33Z Insertion of Infusion Device into Upper Vein, Percutaneous Approach (ICD-10-PCS; principal; 2019-08-09)
DX: K56.7 Ileus, unspecified (principal); G92 Toxic encephalopathy; E43 Unspecified severe protein-calorie malnutrition; K65.9 Peritonitis, unspecified; I48.20 Chronic atrial fibrillation, unspecified; J90 Pleural effusion, not elsewhere classified; N39.0 Urinary tract infection, site not specified; K56.600 Partial intestinal obstruction, unspecified as to cause; I25.10 Atherosclerotic heart disease of native coronary artery without angina pectoris; Z79.01 Long term (current) use of anticoagulants; M19.90 Unspecified osteoarthritis, unspecified site; E11.65 Type 2 diabetes mellitus with hyperglycemia; N40.0 Benign prostatic hyperplasia without lower urinary tract symptoms; D64.9 Anemia, unspecified

== ENCOUNTER → 2020-02-14 11:16 | Outpatient (CLI) | payer MEDICARE, BC ==
[2019-07-29 11:09] VITALS: BMI 24.3
[~2020-02-14 11:16] MED LIST changes: +CALMOSEPTINE OI71 GM TOPICAL; +FLUTICASONE PRO16 GM NASAL
== END | disposition home or self-care (01) ==
LOC: D.HCCARDIO 11:16
PROVIDERS: ATTEND Internal Medicine Cardiovascular Disease
DX: I25.10 Atherosclerotic heart disease of native coronary artery without angina pectoris (principal)

== ENCOUNTER 2020-02-28 11:14 | Day surgery (SDC) | payer MEDICARE, BC ==
[~2020-02-28] VITALS: Ht 172.7 cm; Wt 67.8 kg
--- NOTE | ~2020-02-28 | HEMODYNAMI ---
PATIENT:MARVIN HYATT MEDICAL RECORD: [id number] : 40 LOCATION:[facility] ADMISSION DATE: 02/28/20 Generatedon:02/28/202014:21 Patient name: MARVIN HYATT Patient #: [id number] SSN : : 1940 Date of study: 02/28/2020 Page: Of Hemodynamic Procedure Report Patient Data Patient Demographics Procedure consent was obtained First Name: MARVIN Gender: Male Last Name: OLENA : 1940 [facility] Initial: N Age: 79 year(s) Patient #: [id number] Race: Additional ID: [id number] Contact details Address: [address] [place] [address] State: [place] City: [place] Zip code: [address] Past Medical History Allergies: No known allergies Admission Admission Data Admission Date: 02/28/2020 Admission Time: 11:14 Height (in.): 68.11 BSA: 1.81 (m2) Height (cm.): 173 BMI: 22.72 (kg/m2) Weight (lbs.): 149.92 Weight (kg.): 68 Lab Results Lab Result Date: 02/28/2020 Lab Result Time: 0:00 Biochemistry Name Units Result Min Max BUN mg/dl 24 --(----)-* 7 18 Creatinine mg/dl 1.3 --(---*)-- 0.6 1.3 eGFR ml/min 56 *-(----)-- 90 120 NONAFRICAN CBC Name Units Result Min Max Hematocrit % 47.7 --(-*--)-- 42 54 Hemoglobin g/dl 15.6 --(--*-)-- 13.5 17.5 Procedure Procedure Types Cath Procedure Diagnostic Procedure LHC LH w/Coronaries FFR/IVUS FFR Initial Sedation Charges Moderate Sedation up to 15 minutes PCI Procedure Hemochron ACT Test Procedure Description Procedure Date Procedure Date: 02/28/2020 Procedure Start Time: 13:52 Procedure End Time: 14:17 Procedure Staff Name Function Garry Kilgore MD Performing Physician Valerie Christy RT Monitor Jody Mims RN Nurse Jaleesa Lawler RT Scrub Khalida Vicente RN Cognos Report Developer Procedure Data Cath Procedure Fluoroscopy Diagnostic fluoroscopy Total fluoroscopy Time: 3.4 time: 3.4 min min Diagnostic fluoroscopy Total fluoroscopy dose: 334 dose: 334 mGy mGy Contrast Material Contrast Material Type Amount (ml) Isovue 300 52 Entry Location Entry Primary Successful Side Size Upsize Upsize Entry Closure Succes sful Closure Location (Fr) 1 (Fr) 2 (Fr) Remarks Device Remarks Femoral Right 5 Fr 6 Fr artery Short Estimated blood loss: 10 ml Diagnostic catheters Device Type Used For End Catheter Placement MULTIPACK JL 4.0 5Fr Procedure catheter MULTIPACK 3DRC 5Fr Procedure catheter MULTIPACK Pigtail 5 Fr Ventriculography catheter Procedure Complications No complications Procedure Medications Medication Administration Route Dosage Oxygen etCO2 Nasal cannula 2 l/min Lidocaine 2% added to field 20 Heparin Flush Bag added to field 2 bags (1000units/500ml NS) 0.9% NaCl I.V. 100 ml/hr Versed I.V. 1 mg Fentanyl I.V. 25 mcg Versed I.V. 0.5 mg Heparin Bolus I.V. 3000 units Versed I.V. 0.5 mg Fentanyl I.V. 25 mcg Hemodynamics Rest BSA: 1.81 (m2) HGB: 15.6 (g/dl) O2 Consumption: Estimated: 197.26 (ml/min) O2 Co nsumption indexed: Estimated:108.98 (ml/min/m) Heart Rate: 56 (bpm) Pressure Samples Time Site Value (mmHg) Purpose Heart Use Rate(bpm) 14:02 LV 112/3,9 Snapshot 64 14:02 AO 104/49(71) Pullback 48 14:02 LV 115/5,10 Pullback 48 Gradients Valve Time Site 1 Site 2 Mean SEP/DFP Peak To Heart Use (mmHg) (sec/min) Peak Rate (mmHg) (bpm) Aortic 14:02 LV AO 9 16 11 48 115/5,10 104/49(71) Calculations Valve P-P Mean Valve Index Valve Source Name Gradient Area Flow (cm2) Aortic 11 9 11 9 Snapshots Pre Cath Intra NCS Post Cath Vital Signs Time Heart Resp SPO2 etCO2 NIBP Rhythm Pain Sedation Rate (ipm) (%) (mmHg) (mmHg) Status Level (bpm) 13:37:56 81 16 99 0 71/57(67) Paced 0 (11) 10(A) , No pain 13:42:45 69 15 100 9.7 109/63(89) Paced 0 (11) 10(A) , No pain 13:46:57 70 15 100 16.5 99/57(81) Paced 0 (11) 10(A) , No pain 13:51:05 73 15 100 21.8 100/55(77) Paced 0 (11) 10(A) , No pain 13:55:12 69 11 100 18.8 104/58(82) Paced 0 (11) 9(A) , No pain 13:59:20 69 5 100 25.5 104/61(86) Paced 0 (11) 9(A) , No pain 14:03:28 69 11 100 33.8 103/60(86) Paced 0 (11) 9(A) , No pain 14:07:34 70 14 100 25.5 111/65(90) Paced 0 (11) 9(A) , No pain 14:11:46 69 26 100 0 107/58(88) Paced 0 (11) 9(A) , No pain 14:15:56 69 10 100 10.5 102/57(85) Paced 0 (11) 9(A) , No pain Medications Time Medication Route Dose Verified Delivered Reason Notes Effectiveness by by 13:43:09 Oxygen etCO2 2 Garry Buffie used for Nasal l/min Jame Mims RN procedure cannula 13:43:15 Lidocaine 2% added 20ml Garry Garry for local to vial Jame Kilgore MD anesthetic field 13:43:21 Heparin Flush added 2 Garry Garry used for Bag to bags Jame Kilgore MD procedure (1000units/500ml field NS) 13:43:32 0.9% NaCl I.V. 100 Garry Buffie Per physician ml/hr Jame Mims RN 13:50:10 Versed I.V. 1 mg Garry Buffie for sedation Jame Mims RN 13:50:16 Fentanyl I.V. 25 Garry Buffie for sedation mcg Jame Mims RN 13:56:04 Versed I.V. 0.5 Garry Khalida for sedation mg Jame Vicente, KENNETH 14:05:20 Heparin Bolus I.V. 3000 Garry Khalida for verif ied w units Jame Vicente, anticoagulation kenneth jj RN 14:09:06 Versed I.V. 0.5 Garry Khalida for sedation mg Jame Vicente, KENNETH 14:09:11 Fentanyl I.V. 25 Garry Khalida for sedation mcg Jame Vicente, patternmaker sample Log Time Note 12:45:25 Informed consent obtained and on chart 12:50:11 Procedure Status Elective Heart Cath (OP). 12:50:15 Time tracking: Regular hours (M-F 7:00 - 5:00) 12:50:51 Stress Test: yes; abnormal INFERIOR AND APICAL 12:51:47 Patient allergic to No known allergies 13:14:23 H&P Date Dictated: 02/28/2020 H&P Addendum completed by physician on day of procedure. (MUST COMPLETE FOR ALL OUTPATIENTS), New H&P dictated by physician.. 13:16:19 Lab Result : Hemoglobin 15.6 g/dl 13:16:19 Lab Result : eGFR NONAFRICAN 56 ml/min 13:16:19 Lab Result : BUN 24 mg/dl 13:16:19 Lab Result : Creatinine 1.3 mg/dl 13:16:19 Lab Result : Hematocrit 47.7 % 13:16:30 Patient Height : 68.11 inches 13:16:36 Patient Weight : 149.92 lbs 13:17:00 Is patient on blood thinner?Yes 13:17:06 ACC The patient was administered the following blood thiners within the last 24 hours: Eliquis 02-25-2020. 13:20:22 Lab results completed and on chart. 13:20:28 Risk of Mortality: 0.6 13:20:32 Risk of blood transfusion: 0.8 13:20:38 Risk of LUCY: 1.8 13:21:25 Jody Mims RN sent for patient. Start room use. 13:21:35 Plan of Care:Hemodynamics will remain stable., Cardiac rhythm will remain stable., Comfort level will be maintained., Respiratory function will remain adequate., Patient/ family verbilizes understanding of procedure., Procedure tolerated without complication., Recovers from procedure without complications.. 13:28:42 Patient received from Pre/Post Procedure Room to CCL 1 Alert and oriented. Tansferred to table in Supine position. 13:28:50 Warm blankets applied, and natacha hugger turned on for patient comfort. 13:28:51 Correct patient and procedure confirmed by team. 13:28:53 ECG and BP/O2 sat monitors applied to patient. 13:36:47 Vital chart was started 13:36:48 Baseline sample Acquired. 13:36:54 Rhythm: sinus rhythm 13:36:57 Full Disclosure recording started 13:37:03 Family in patients room. 13:37:05 Patient NPO since Midnight. 13:37:10 Is the patient allergic to Iodine/contrast media? No. 13:37:14 Was the patient premedicated? Yes 13:37:18 Patient diabetic? No. 13:37:29 Snore? No 13:37:30 Sleep apnea? No 13:37:43 IV patent on arrival in left forearm with 0.9% NaCl at [facility]. 13:37:49 Right groin area was prepped with chlora-prep and draped in sterile fashion 13:37:50 Alarms reviewed by R. N. 13:37:50 Sharps counted by scrub and verified by R.N. 13:37:51 Physician paged 13:37:53 Physician arrived 13:40:59 Right groin site verified by team. 13:41:04 Fire Safety Assessment: A--An alcohol-based skin anteseptic being used preoperatively., C--Open oxygen or nitrous oxide is being used., D--An ESU, laser, or fiber-optic light is being used. 13:41:09 Physical assessment completed. ASA score P 2 - A patient with mild systemic disease as per Garry Kilgore MD. 13:41:15 3a) 45-59 Moderately reduced kidney function. 13:41:21 Maximum allowable contrast dose (3.7 X eGFR X 0.75)155 ml. 13:41:26 Sedation plan: IV Moderate Sedation Medication:Versed, Fentanyl 13:41:30 Use device set Femoral Dx 13:43:09 Oxygen 2 l/min etCO2 Nasal cannula was administered by Jody Mims RN; used for procedure; Verbal order read back and verified. 13:43:15 Lidocaine 2% 20ml vial added to field was administered by Garry Kilgore MD; for local anesthetic; Verbal order read back and verified. 13:43:21 Heparin Flush Bag (1000units/500ml NS) 2 bags added to field was administered by Garry Kilgore MD; used for procedure; Verbal order read back and verified. 13:43:32 0.9% NaCl 100 ml/hr I.V. was administered by Jody Mims RN; Per physician; Verbal order read back and verified. 13:49:29 --------ALL STOP TIME OUT------ 13:49:30 Final Timeout: patient, procedure, and site verified with staff and physician. All members of the team are in agreement. 13:50:10 Versed 1 mg I.V. was administered by Jody Mims RN; for sedation; Verbal order read back and verified. 13:50:16 Fentanyl 25 mcg I.V. was administered by Jody Mims RN; for sedation; Verbal order read back and verified. 13:50:43 Zero performed for pressure channel P1 13:52:33 Procedure started. 13:52:55 Local anesthetic to right femoral artery with Lidocaine 2% by Garry Kilgore MD.INITIAL ACCESS ONLY 13:53:18 A 5 Fr sheath was inserted into the Right Femoral artery 13:56:04 Versed 0.5 mg I.V. was administered by Khalida Vicente RN; for sedation; Verbal order read back and verified. 13:56:28 ACIST Syringe (17463) opened to sterile field. 13:56:28 Bag Decanter () opened to sterile field. 13:56:29 Medline Cath Pack ([id number]) opened to sterile field. 13:56:30 ACIST Hand Control (58539) opened to sterile field. 13:56:31 ACIST Manifold (41283) opened to sterile field. 13:56:31 DIAGNOSTIC Multipack 5Fr catheter set (IJ1596) opened to sterile field. 13:56:32 Tegaderm 4 x 4 (1626W) opened to sterile field. 13:56:34 SHEATH 5FR [place] (VPS364) opened to sterile field. 13:56:35 EMERALD Guide Wire (527-779) opened to sterile field. 13:56:42 A MULTIPACK JL 4.0 5Fr catheter was advanced over the wire and used for Procedure. 13:56:53 LCA angiography performed. 13:58:19 Catheter removed. 13:58:39 A MULTIPACK 3DRC 5Fr catheter was advanced over the wire and used for Procedure. 13:58:50 RCA angiography performed. 14:00:05 Catheter removed. 14:00:22 A MULTIPACK Pigtail 5 Fr catheter was advanced over the wire and used for Ventriculography. 14:00:29 LV angiography performed. 14:00:42 Zero performed for pressure channel P1 14:00:46 Zero performed for pressure channel P1 14:00:54 Zero performed for pressure channel P1 14:02:41 EF : 45 % 14:04:30 Catheter removed. 14:05:20 Heparin Bolus 3000 units I.V. was administered by Khalida Vicente RN; for anticoagulation; verified w kenneth jj Verbal order read back and verified. 14:06:07 SHEATH 6FR [place] (OWB467) opened to sterile field. 14:06:07 INFLATOR Merit BasixCompak (HP7036) opened to sterile field. 14:06:11 GUIDE 6FR XB 3.5 catheter ([id number]) opened to sterile field. 14:06:11 TUBING High Pressure Extension Tubing (Kilgore) ([id number]) opened to sterile field. 14:06:12 [place] Verrata Plus pressure wire (15002I) opened to sterile field. 14:06:30 Sheath upsized to a 6 Fr Short. 14:07:45 6 Fr XB3.5 guide catheter was inserted over the wire 14:07:53 FFR/IFR wire advanced. 14:09:06 Versed 0.5 mg I.V. was administered by Khalida Vicente RN; for sedation; Verbal order read back and verified. 14:09:11 Fentanyl 25 mcg I.V. was administered by Khalida Vicente RN; for sedation; Verbal order read back and verified. 14:11:24 Wire advanced across lesion. 14:11:33 pCirc lesion measured at 1.01 with IFR 14:12:55 Procedure ended.(Physican Out) 14:13:34 Fluoroscopy time 03.40 minutes. 14:13:39 Fluoroscopy dose: 334 mGy 14:13:39 Flurop Dose total: 334 14:14:04 Dose Area Product 35782 mGy/cm. 14:14:25 EXOSEAL 6Fr (EX600) opened to sterile field. 14:14:35 Contrast amount:Isovue 300 52ml. 14:14:38 Maximum allowable dose exceeded? No. 14:14:39 Sharps counted by scrub and verified by R.N. 14:14:41 Insertion/operative site no bleeding no hematoma. 14:14:45 Post-op/insertion site Right Femoral artery dressed using a 4 x 4 and Tegaderm. 14:14:54 Post right femoral artery:stable 14:15:03 Estimated blood loss: 10 ml 14:15:12 Post procedure instruction explained to patient.Patient verbalizes understanding. 14:16:21 Procedure type changed to Cath procedure, Diagnostic procedure, LHC, C w/Coronaries, FFR/IVUS, FFR Initial, Sedation Charges, Moderate Sedation up to 15 minutes, PCI procedure, Hemochron ACT Test 14:16:23 Procedure and supply charges have been captured, reviewed, submitted and are correct. 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 14:17:15 Report given to Pre/Post Procedure Room. 14:17:17 Patient transfered to Pre/Post Procedure Room with Stretcher. 14:17:20 Procedure ended. 14:17:20 Full Disclosure recording stopped 14:17:28 End room use (Document Last) 14:19:23 ACT drawn and resulted at 260 seconds. (normal therapeutic range 180-240 seconds). Device Usage Item Name Manufacture Quantity Catalog Hospital Part Current Minima l Lot# / Number Charge Number Stock Stock Serial# Code ACIST Acist 1 15597 774224 [id number] [id number] 20 Syringe Medical (47274) Systems Inc Bag Microtek 1 580952 52714 861186 5 Decanter Medical Inc. () Medline Medline 1 [id number] 316151 75576 179977 5 Cath Pack ([id number]) ACIST Hand Acist 1 84408 181515 699026 698554 5 Control Medical (35367) Systems Inc ACIST Acist 1 73774 042010 589454 709256 5 Manifold Medical (45850) Systems Inc DIAGNOSTIC Cardinal 1 EN2881 028715 24886 586480 30 Multipack Health 5Fr catheter set (JP1963) Tegaderm 4 3M 1 1626W 425903 647074 973467 5 x 4 (1626W) SHEATH 5FR Terumo 1 DGM002 151299 850839 152324 5 [place] (TMP500) EMERALD Cardinal 1 502-455 576636 894373 205411 5 Guide Wire Health (502-455) MULTIPACK Cardinal 1 325988 5 JL 4.0 5Fr Health catheter MULTIPACK Cardinal 1 095655 5 3DRC 5Fr Health catheter MULTIPACK Cardinal 1 609179 5 Pigtail 5 Health Fr catheter SHEATH 6FR Terumo 1 ZCE665 728402 732900 301727 40 [place] (BIT149) INFLATOR Merit 1 PW3191 137562 481911 618338 15 [facility] Medical BasixCompak (FM1442) GUIDE 6FR Cardinal 1 [id number] 653670 579391 022699 2 XB 3.5 Health catheter ([id number]) TUBING High Merit 1 [id number] 359439 69388 643502 10 Pressure Medical Extension Tubing (Kilgore) (YL8798S) [place] 1 66779G 960869 118655060 069400 5 Verrata Plus pressure wire (86013H) EXOSEAL 6Fr Cardinal 1 EX600 532107 763371 271425 10 (EX600) Health Signature [facility] [place] Stage Time Signature Unsigned Intra-Procedure 02/28/2020 Valerie Christy 2:20:02 PM RT(R) Intra-Procedure 02/28/2020 Khalida Vicente, 2:20:52 PM RN Intra-Procedure 02/28/2020 Garry Kilgore MD 2:21:34 PM [facility] [address] [facility] [place] [address]
[2020-02-28] MEDS ORDERED: ELIQUIS5 MG PO (11:32)
[2020-02-28] MEDS ORDERED: LIPITOR80 MG PO (11:32)
[2020-02-28] MEDS ORDERED: ALDACTONE50 MG PO (11:34)
[2020-02-28] MEDS ORDERED: BETAPACE 80 MG80 MG PO (11:34)
[2020-02-28] MEDS ORDERED: PROSCAR5 MG PO (11:35)
[2020-02-28 11:50] VITALS: BP 141/80; Ht 172.7 cm; Wt 67.8 kg
[2020-02-28 12:10] LABS: ANION GAP 11.7 mmol/L (8-16); CALCIUM 10.2 mg/dL (8.5-10.1); CARBON DIOXIDE 23.5 mmol/L (21.0-32.0); CHOL - HDL RATIO 2.1 ratio (2.3-4.9); CREATININE - SERUM 1.3 mg/dL (0.6-1.3); LDL-HDL RATIO 0.8 ratio (1.5-3.5); POTASSIUM - SERUM 4.2 mmol/L (3.5-5.1)
[2020-02-28 13:12] LABS: BASOPHILS 0.3 % (0-2); HEMATOCRIT 47.7 % (42.0-54.0); HEMOGLOBIN 15.6 g/dL (13.5-17.5); IMMATURE GRANULOCYTES 0.3 % (0-5); LYMPHOCYTES 30.2 % (15-50); MCH 32.2 pg (26.0-34.0); MCHC 32.7 g/dL (31.0-37.0); MCV 98.4 fL (80.0-100.0); MEAN PLATELET VOLUME 10.7 fL (7.4-10.4); MONOCYTES 11.3 % (2-11); NEUTROPHILS 56.9 % (40-80); RBC 4.85 10x6/uL (4.20-6.10); RDW 13.6 % (11.5-14.5); WBC 10.5 10x3/uL (4.8-10.8)
[2020-02-28 13:13] LABS: PLATELET COUNT 243 10x3/uL (130-400)
--- NOTE | 2020-02-28 14:29 | NUR ---
PT ARRIVED BY STRETCHER. PLACED ON MONITORS. ASSESSMENT COMPLETED. VSS AT THIS TIME. CALL LIGHT WITHIN REACH. FAMILY AT BEDSIDE.
--- NOTE | 2020-02-28 14:45 | NUR ---
RIGHT GROIN DRESSING C/D/I. NO S/S OF HEMATOMA NOTED. CALL LIGHT WITHIN REACH. VSS AT THIS TIME. PT RESTING COMFORTABLY. VOIDED 300cc OF CLEAR YELLOW URINE IN URINAL WITHOUT DIFFICULTY.
--- NOTE | 2020-02-28 15:15 | NUR ---
RIGHT GROIN DRESSING C/D/I. NO S/S OF HEMATOMA NOTED. CALL LIGHT WITHIN REACH. VSS AT THIS TIME. CALL LIGHT WITHIN REACH. DENIES NAUSEA/PAIN. PT RESTING COMFORTABLY.
--- NOTE | 2020-02-28 15:45 | NUR ---
RIGHT GROIN DRESSING C/D/I. NO S/S OF HEMATOMA NOTED. CALL LIGHT WITHIN REACH. VSS AT THIS TIME. PT DENIES NAUSEA/PAIN. RESTING COMFORTABLY. FAMILY AT BEDSIDE.
--- NOTE | 2020-02-28 15:45 | NUR ---
PIV D/C'D WITH CATH TIP INTACT. TOLERATED WELL. RIGHT GROIN DRESSING C/D/I. NO S/S OF HEMATOMA NOTED.
--- NOTE | 2020-02-28 16:15 | NUR ---
RIGHT GROIN DRESSING C/D/I. NO S/S OF HEMATOMA NOTED. CALL LIGHT WITHIN REACH. HEAD OF BED INC TO 30 DEGREES. TOLERATED WELL. PT SET UP WITH SANDWICH TRAY AND DRINK. DENIES NAUSEA/PAIN. RIGHT PEDAL PULSE IS PALPABLE.
--- NOTE | 2020-02-28 16:55 | NUR ---
DISCUSSED DISCHARGE INSTRUCTIONS WITH PT AND PT'S FAMILY. THEY VOICED UNDERSTANDING. PT AMBULATED TO RESTROOM. VOIDED WITHOUT DIFFICULTY. STEADY GAIT NOTED. RIGHT GROIN DRESSING C/D/I. NO S/S OF HEMATOMA NOTED.
--- NOTE | 2020-02-28 17:00 | NUR ---
PT TAKEN OUT TO VEHICLE BY WHEELCHAIR. NO S/S OF DISTRESS NOTED. ALL BELONGINGS AND PAPERWORK IN HAND.
== END 2020-02-28 17:00 | disposition home or self-care (01) ==
LOC: D.CATH 11:14
PROVIDERS: ATTEND Internal Medicine Cardiovascular Disease
DX: I20.9 Angina pectoris, unspecified (principal); R94.39 Abnormal result of other cardiovascular function study; E11.9 Type 2 diabetes mellitus without complications; Z95.0 Presence of cardiac pacemaker; Z72.0 Tobacco use